=== PATIENT | female | born 1955 | race Caucasian/White ===

== ENCOUNTER 2025-04-11 10:16 | Emergency (ER) | payer MEDICARE, SELFPAY ==
--- NOTE | ~2025-04-11 | XR_ITS ---
Examination: XR chest 2V Clinical History: cough/fever/crackles RLL Comparison: None Technique: PA and Lateral Findings: Cardiomediastinal silhouette normal size and configuration. 2 nodular foci right upper lobe. 1 nodular focus left upper lobe. No focal airspace consolidation or pleural effusion. Mild wedge deformity of what is probably T9. IMPRESSION: 1. Recommend CT chest to better evaluate biapical nodular foci. 2. No evidence of lobar pneumonia. Reviewed, dictated and finalized at location R.
--- NOTE | 2025-04-11 10:17 | ED.URI ---
HPI - URI/Sore Throat General Chief Complaint: Upper Respiratory Infection Stated Complaint: Sore throat / Fever Time Seen by Provider: 04/11/25 10:17 Source: patient Mode of arrival: ambulatory Limitations: no limitations History of Present Illness HPI Narrative: Alessia is a 61-year-old female patient presenting to the clinic today with complaints of sore throat, headache, body aches, nasal congestion, felt feverish x 1 day. She reports symptoms worsened this morning. Temp is 100.8F in the clinic today. Denies any chest pain or SOB. 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 Finished steroids back in October. Has taken Tylenol, Flonase, and allergy medicine for her symptoms. Recently traveled from [place] to [place]-was on a plane on Sunday-traveling here to help her sister removed. She is expecting to travel back to [place] tomorrow. Recently also travel to [place]-1 week ago. Related Data Home Medications ?Medication ?Instructions ?Recorded ?Confirmed ?Last Taken ?Type acyclovir 400 mg tablet mg 04/11/25 Unknown History brimonidine 0.15 % eye drops drp 04/11/25 Unknown History estradiol 10 mcg vaginal tablet mcg vaginal 04/11/25 Unknown History linaclotide 145 mcg capsule mcg 04/11/25 Unknown History ([place]) montelukast 10 mg tablet mg 04/11/25 Unknown History pantoprazole 40 mg tablet,delayed mg PO 04/11/25 Unknown History release rosuvastatin 20 mg tablet mg 04/11/25 Unknown History sertraline 50 mg tablet mg 04/11/25 Unknown History Allergies Allergy/AdvReac Type Severity Reaction Status Date / Time ampicillin Allergy Other Verified 04/11/25 10:42 cefadroxil Allergy Other Verified 04/11/25 10:42 clarithromycin (From Biaxin) Allergy Other Verified 04/11/25 10:42 levofloxacin (From Levaquin) Allergy Other Verified 04/11/25 10:42 nystatin Allergy Unknown Verified 04/11/25 10:42 Penicillins Allergy Other Verified 04/11/25 10:42 propafenone Allergy Wheezing Verified 04/11/25 10:42 raloxifene (From Evista) Allergy Other Verified 04/11/25 10:42 triamcinolone Allergy Unknown Verified 04/11/25 10:42 diltiazem (From Cartia XT) AdvReac FATIQUE Verified 04/11/25 10:42 flecainide AdvReac Confusion Verified 04/11/25 10:42 metoprolol AdvReac BRADYCARDIA Verified 04/11/25 10:42 Review of Systems Review of Systems: Pertinent positives per HPI. Patient denies any rash, visual changes, dizziness, shortness of breath, chest pain, palpitations, nausea, vomiting, diarrhea, constipation, abdominal pain, or any urinary issues. PMFSH Comments At the time of my signature, I reviewed and agree with the nursing past medical, surgical, social, and family history. There is no relevant family history pertinent to the patient complaint. Exam Narrative: General: Well-developed, well nourished, in no apparent distress Head: Normocephalic, atraumatic Eyes: Pupils equally round and reactive to light bilaterally, EOM intact, sclera and conjunctive clear, no discharge, lids normal Ears: TMs intact and some fluid noted behind the TM, ear canals clear, no drainage, grossly hearing normal. Nose: Nares patent, clear nasal discharge, mild inflammation, no sinus tenderness. Mouth: Oral pharynx red without lesions or masses, good dentition, MMM. Postnasal drip Neck: Supple, trachea midline, no enlargement of anterior or posterior cervical nodes, no thyroid masses or goiter palpable. Cardio: Regular rate and rhythm, s1 and s2 normal, no murmur appreciated. Resp: Clear to auscultation bilaterally, no rhonchi, rales, wheezing or rubs Course Course Emergency Course: Portions of this record may have been created with voice recognition software. Level of Care: Express Care Visit Vital Signs Vital signs: Vital Signs Temperature 38.2 C H 04/11/25 10:34 Pulse Rate 89 04/11/25 10:34 Respiratory Rate 18 04/11/25 10:34 Blood Pressure 136/72 04/11/25 10:34 Pulse Oximetry 97 04/11/25 10:34 Oxygen Delivery Room Air 04/11/25 10:34 Temperature 38.2 C H 04/11/25 10:34 Pulse Rate 89 04/11/25 10:34 Respiratory Rate 18 04/11/25 10:34 Blood Pressure 136/72 04/11/25 10:34 Pulse Oximetry 97 04/11/25 10:34 Oxygen Delivery Room Air 04/11/25 10:34 Vital signs reviewed MDM - URI/Sore Throat MDM Narrative Medical decision making narrative: At the time of visit patient is resting comfortably on the exam table. Patient appears to be nontoxic. Complaints of sore throat, headache, body aches, nasal congestion, felt feverish x 1 day. She reports symptoms worsened this morning. Temp is 100.8F in the clinic today. Denies any chest pain or SOB. 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 Finished steroids back in October. Has taken Tylenol, Flonase, and allergy medicine for her symptoms. Recently traveled from [place] to [place]-was on a plane on Sunday-traveling here to help her sister removed. She is expecting to travel back to [place] tomorrow. Recently also travel to [place]-1 week ago. On exam patient has clear nasal drainage, red oropharynx with postnasal drip, fluid behind bilateral TMs, faint crackles in the right lower lobe, heart rate regular rate and rhythm. COVID, flu, and strep test were ordered. Chest x-ray was also ordered Labs: COVID, influenza, and strep test were performed. All testing was negative. We will send strep for culture Diagnostics: Chest x-ray was performed was negative for any acute cardio pulmonary process. Does show some nodules in the upper lobes. CT is recommended per radiologist. Patient and her PCP is aware of the nodules and they are not acute. Plan: I suspect patient has URI/ viral syndrome. Recommend taking Coricidin HBP. May retest for COVID tomorrow. Supportive measures were discussed with the patient and they voiced understanding discharge instructions and agrees to treatment plan. Return precautions reviewed Differential Diagnosis Differential diagnosis: Likely upper respiratory infection, otitis media, sinusitis, viral infection, bronchitis, influenza, pharyngitis and other (COVID) Lab Data Labs: Lab Results 04/11/25 04/11/25 Range/Units 10:40 10:49 POC Influenza A Ag Negative (Negative) POC Influenza B Ag Negative (Negative) POC SARS CoV-2 Ag Negative (Negative) POC Grp A Strep Screen Negative (Negative) Discharge Plan Discharge Clinical Impression: Viral infection Upper respiratory infection Qualifiers: URI type: unspecified URI Qualified Code(s): J06.9 - Acute upper respiratory infection, unspecified Patient Disposition: Home Condition: Stable Instructions: Antibiotic Form, Viral Syndrome (ED), Cold Symptoms (ED) Additional Instructions: COVID, influenza, and strep test were all negative in the clinic today. We will send strep for culture if this comes back positive we will contact you in place you on antibiotics at that time. Chest x-rays negative for any sign of pneumonia. Does show some nodular foci in your bilateral upper lungs-recommend follow-up with your primary care doctor to determine if you need a chest CT for further evaluation. Take prescription medications only as prescribed Increase fluids and stay well hydrated May take Tylenol or motrin as directed on bottle for pain/fever May use Flonase 1 spray in each nare daily May take OTC antihistamines such as Zyrtec or Claritin daily as directed on bottle May apply Vicks vapor rub to chest to open sinuses Sinus rinses for congestion Cepacol spray, cough drops, throat lozenges, warm tea with honey/lemon, gargle salt water to soothe throat BRAT diet for diarrhea Clear liquids x 24 hours then advance as tolerated for nausea/vomiting Go to the ED if you develop a worsening in your condition- high fever not controlled by Tylenol or Motrin, dehydration, weakness, lethargy, shortness of breath, or chest pain. Follow up with your PCP in 3-5 days if symptoms persist. Patient Language: Mozambican Prescriptions: No Action acyclovir 400 mg tablet pantoprazole 40 mg tablet,delayed release (DR/EC) PO montelukast 10 mg tablet sertraline 50 mg tablet brimonidine 0.15 % drops rosuvastatin 20 mg tablet estradiol 10 mcg tablet VAGINAL Linzess 145 mcg capsule Follow-up/Referrals: UNKNOWN,DOCTOR [Non-Staff] Time of Disposition: 11:08 Quality NIHSS Nursing Documentation ED NIHSS nursing documentation: reviewed/agree
--- OUTSIDE RECORDS SUMMARY | 2025-04-11 10:29 | XMS_ITS | Encounter Summary ---
Author Organization [facility] Address [address] [place] [address] Care Team Providers Care Polysomnographic Technologist Name Role Phone Jennifer Landry MD Primary Care Provider [phone] Matthieu Hernandez MD Unavailable [phone] Florecita Hopson MD Unavailable [phone] Jennifer Landry MD Primary Care Provider [phone] Encounter Details Date Type Department Care Team (Late st Contact Info) Description 07/07/2011 OnBase Orders Only On File [address] [place] [address] Social History Tobacco Use Types Packs/Day Years Used Date Smoking Tobacco: Never Assessed Comments Unknown Sex and Gender Information Value Date Recorded Sex Assigned at Female 02/13/2022 9:35 AM EDT Legal Sex Female 12:45 PM EST Gender Identity Female 02/13/2022 9:35 AM EDT Sexual Orientation Straight 02/13/2022 9: 35 AM EDT Travel History Travel Start Travel End [facility] 03/23/2025 04/06/2025 documented as of this encounter Plan of Treatment Upcoming Encounters Date Type Department Care Team (Late st Contact Info) Description 04/13/2025 8:00 AM EDT Office Visit [facility] [address] [place] [address] Lucita Méndez, OD [address] [place] [address] 04/14/2025 8:20 AM EDT [facility] [address] [facility] [address] [place] [id number] Kerry Zaragoza MD [address] [facility] [address] [place] [address] Follow up 04/22/2025 10:00 AM EDT Initial consult [facility] [address] [facility] [address] [place] [address] Cristal Cabrera MD [address] [place] [address] 289.89 (ICD-9-CM) - D75.89 (ICD-10-CM) - Macrocytosis without anemia 05/08/2025 3:30 PM EDT Office Visit [facility] 2nd Floor [address] [facility] [address] [place] [address] Lizbeth Fuller MD [address] [place] [address] Marcie Macario MD [address] [place] [address] ACV visit today - schedule follow-up any provider 3-6 months for hair loss 05/11/2025 1:15 PM EDT Office Visit [facility] [address] [place] [address] Otis Bay MD [address] [facility] [address] [place] [address] 6 month f/u per paper 06/03/2025 10:00 AM EST Nurse [place] [facility] [address] [facility] [address] [place] [id number] [email or web address] 01/19/2025- 2wk post op 07/01/2025 2:15 PM EST Office Visit [facility] [place] [place] [address] Estefani Whipple, OD [address] [place] [address] 07/02/2025 1:40 PM EST Post Op [facility] [address] [place] [address] Brisa Pugh, [place] [address] [facility] [address] [place] [address] [email or web address] 01/19/2025- 6wk post op 07/29/2025 10:20 AM EST Office Visit [facility] [address] [place] [address] [place] [address] Ciaran Mcgee, [address] [place] [address] [place] [address] [place] F/U 08/03/2025 1:15 PM EST Hospital Encounter [facility] [address] [place] [address] Martina Vincent MD [address] [place] [address] 08/03/2025 1:15 PM EST - 08/03/2025 4:45 PM EST Surgery [facility] [address] [place] [address] Martina Vincent MD [address] [place] [address] C3-7 laminoplast LAMINOPLASTY, CERVICAL, W/DECOMPRESSION OF SPINAL CORD, 2 OR MORE VERTEBRAL SEGMENTS; W/RECONSTRUCTION POSTERIOR BONY ELEMENTS 08/14/2025 9:20 AM EST Office Visit [facility] [address] [address] Namrata Pollock MD [address] [place] [address] Jaimee Arroyo, [place] [address] [address] return Scheduled Procedures Name Priority Associated Diagnoses Date/Ti me LAMINOPLASTY, CERVICAL, W/DECOMPRESSION OF SPINAL CORD, 2 OR MORE VERTEBRAL SEGMENTS; W/RECONSTRUCTION POSTERIOR BONY ELEMENTS Spondylosis, cervical, with myelopathy Cervical stenosis of spine 08/03/2025 1:15 PM EST documented as of this encounter Procedures Procedure Name Priority Date/Time Associated Diagnosis Comments EXTERNAL PATHOLOGY RESULT 07/07/2011 12:00 AM EST documented in this encounter Results * EXTERNAL PATHOLOGY RESULT (07/07/2011 12:00 AM EST) Narrative 07/07/2011 12:00 AM EST Ordered by an unspecified provider. us On-File Provider PATHOLOGY ORDERABLES Final Resu lt documented in this encounter Visit Diagnoses Not on filedocumented in this encounter Additional Health Concerns Infection Onset Date Last Indicated Resolved Time Rule Out Respiratory Virus 07/09/2024 07/09/2024 1 09/10/2023 11:37 AM EST Influenza 09/03/2024 09/03/2024 09/13/2024 1:30 AM EST documented as of this encounter Care Teams Polysomnographic Technologist Relationship Specialty Start Date End Date Jennifer Landry MD [address] [place] [address] PCP - General Internal Medicine 10/10/21 07/26/23 Jennifer Landry MD [address] [place] [address] PCP - General Internal Medicine 09/20/23 Matthieu Hernandez MD 30 [place] [address] Consulting Provider Endocrinology 09/19/22 Florecita Hopson MD [address] [address] Covering Provider Urogynecology 09/19/22 documented as of this encounter
--- OUTSIDE RECORDS SUMMARY | 2025-04-11 10:29 | XMS_ITS | Encounter Summary ---
Author Organization [facility] Address [address] [place] [address] Care Team Providers Care Flavor Tank Tender Name Role Phone Jennifer Landry MD Primary Care Provider [phone] Matthieu Hernandez MD Unavailable [phone] Florecita Hopson MD Unavailable [phone] Jennifer Landry MD Primary Care Provider [phone] Encounter Details Date Type Department Care Team (Late st Contact Info) Description 07/07/2011 OnBase Documentation On File [address] [place] [address] Social History Tobacco Use Types Packs/Day Years Used Date Smoking Tobacco: Never Assessed Comments Unknown Sex and Gender Information Value Date Recorded Sex Assigned at Female 02/13/2022 9:35 AM EDT Legal Sex Female 12:45 PM EST Gender Identity Female 02/13/2022 9:35 AM EDT Sexual Orientation Straight 02/13/2022 9: 35 AM EDT Travel History Travel Start Travel End [facility] 03/23/2025 04/06/2025 documented as of this encounter Plan of Treatment Upcoming Encounters Date Type Department Care Team (Late st Contact Info) Description 04/13/2025 8:00 AM EDT Office Visit [facility] [address] [place] [address] Lucita Méndez, OD [address] [place] [address] 04/14/2025 8:20 AM EDT [facility] [address] [facility] [address] [place] [address] Kerry Zaragoza MD [address] [facility] [address] [place] [address] Follow up 04/22/2025 10:00 AM EDT Initial consult [facility] [address] [facility] [address] [place] [address] Cristal Cabrera MD [address] [place] [address] 289.89 (ICD-9-CM) - D75.89 (ICD-10-CM) - Macrocytosis without anemia 05/08/2025 3:30 PM EDT Office Visit [facility] 2nd Floor [address] [facility] [address] [place] [address] Lizbeth Fuller MD [address] [place] [address] Marcie Macario MD 40 [place] [address] ACV visit today - schedule follow-up any provider 3-6 months for hair loss 05/11/2025 1:15 PM EDT Office Visit [facility] [address] [place] [address] Otis Bay MD [address] [facility] [address] [place] [address] 6 month f/u per paper 06/03/2025 10:00 AM EST Nurse [place] [facility] 30 [facility] [address] [place] [address] [email or web address] 01/19/2025- 2wk post op 07/01/2025 2:15 PM EST Office Visit [facility] [address] [place] [address] Estefani Whipple, OD [address] [place] [address] 07/02/2025 1:40 PM EST Post Op [facility] [address] [place] [address] Brisa Pugh, RECYCLING CENTER OPERATOR [address] [facility] [address] [place] [address] [email or web address] 01/19/2025- 6wk post op 07/29/2025 10:20 AM EST Office Visit [facility] [address] [place] [address] [place] [phone] Ciaran Mcgee, [address] [place] [address] [place] [address] [place] F/U 08/03/2025 1:15 PM EST Hospital Encounter [facility] [address] [place] [address] Martina Vincent MD 40 [place] [address] 08/03/2025 1:15 PM EST - 08/03/2025 4:45 PM EST Surgery [facility] [address] [place] [address] Martina Vincent MD 40 [place] [address] C3-7 laminoplast LAMINOPLASTY, CERVICAL, W/DECOMPRESSION OF SPINAL CORD, 2 OR MORE VERTEBRAL SEGMENTS; W/RECONSTRUCTION POSTERIOR BONY ELEMENTS 08/14/2025 9:20 AM EST Office Visit [facility] [address] [phone] Namrata Pollock MD [address] [place] [address] Jaimee Arroyo, [place] [address] [place] [address] return Scheduled Procedures Name Priority Associated Diagnoses Date/Ti me LAMINOPLASTY, CERVICAL, W/DECOMPRESSION OF SPINAL CORD, 2 OR MORE VERTEBRAL SEGMENTS; W/RECONSTRUCTION POSTERIOR BONY ELEMENTS Spondylosis, cervical, with myelopathy Cervical stenosis of spine 08/03/2025 1:15 PM EST documented as of this encounter Visit Diagnoses Not on filedocumented in this encounter Additional Health Concerns Infection Onset Date Last Indicated Resolved Time Rule Out Respiratory Virus 07/09/2024 07/09/2024 1 09/10/2023 11:37 AM EST Influenza 09/03/2024 09/03/2024 09/13/2024 1:30 AM EST documented as of this encounter Care Teams Flavor Tank Tender Relationship Specialty Start Date End Date Jennifer Landry MD [address] [place] [address] PCP - General Internal Medicine 10/10/21 07/26/23 Jennifer Landry MD [address] [place] [address] PCP - General Internal Medicine 09/20/23 Matthieu Hernandez MD [address] [place] [address] Consulting Provider Endocrinology 09/19/22 Florecita Hopson MD [address] [address] Covering Provider Urogynecology 09/19/22 documented as of this encounter
--- OUTSIDE RECORDS SUMMARY | 2025-04-11 10:29 | XMS_ITS | Encounter Summary ---
Author Organization [facility] Address [address] [place] [address] Care Team Providers Care Child And Family Services Worker Name Role Phone Jennifer Landry MD Primary Care Provider + [phone] Matthieu Hernandez MD Unavailable [phone] Florecita Hopson MD Unavailable [phone] Jennifer Landry MD Primary Care Provider [phone] Encounter Details Date Type Department Care Team (Late st Contact Info) Description 03/08/2011 OnBase Orders Only On File [address] [place] [address] Social History Tobacco Use Types Packs/Day Years Used Date Smoking Tobacco: Never Assessed Comments Unknown Sex and Gender Information Value Date Recorded Sex Assigned at Female 02/13/2022 9:35 AM EDT Legal Sex Female 12:45 PM EST Gender Identity Female 02/13/2022 9:35 AM EDT Sexual Orientation Straight 02/13/2022 9: 35 AM EDT Travel History Travel Start Travel End [facility] 03/23/2025 04/06/2025 documented as of this encounter Plan of Treatment Upcoming Encounters Date Type Department Care Team (Late st Contact Info) Description 04/13/2025 8:00 AM EDT Office Visit [facility] [address] [place] [address] Lucita Méndez, OD [address] [place] [address] 04/14/2025 8:20 AM EDT [facility] [address] [facility] [address] [place] [address] Kerry Zaragoza MD [address] [facility] [address] [place] [address] Follow up 04/22/2025 10:00 AM EDT Initial consult [facility] Hematology 40 [facility] [address] [place] [address] Cristal Cabrera MD 40 [place] [address] 289.89 (ICD-9-CM) - D75.89 (ICD-10-CM) - Macrocytosis without anemia 05/08/2025 3:30 PM EDT Office Visit [facility] 2nd Floor 5[address] [facility] 210 [place] [address] Lizbeth Fuller MD [address] [facility] [address] [place] [address] Marcie Macario MD 40 [place] [address] ACV visit today - schedule follow-up any provider 3-6 months for hair loss 05/11/2025 1:15 PM EDT Office Visit [facility] [address] [place] [address] Otis Bay MD [address] [facility] [address] [place] [address] 6 month f/u per paper 06/03/2025 10:00 AM EST Nurse Only [facility] 30 [facility] [address]B 1C [place] [address] [email or web address] 01/19/2025- 2wk post op 07/01/2025 2:15 PM EST Office Visit [facility] [place] [address] [place] [address] Estefani Whipple, OD [address] [place] [address] 07/02/2025 1:40 PM EST Post Op [facility] Arrkeisha [address] 300 [place] [address] Brisa Pugh, [place] [address] [facility] [address] [place] [address] [email or web address] 01/19/2025- 6wk post op 07/29/2025 10:20 AM EST Office Visit [facility] [address] [place] [address] [place] [address] Ciaran Mcgee, [address] [place] [address] [place] [address] [place] F/U 08/03/2025 1:15 PM EST Hospital Encounter [facility] [place] [facility] 10 [place] [address] Martina Vincent MD 40 [place] [address] 08/03/2025 1:15 PM EST - 08/03/2025 4:45 PM EST Surgery [facility] [place] [facility] 10 [place] [address] Martina Vincent MD 40 [place] [address] C3-7 laminoplast LAMINOPLASTY, CERVICAL, W/DECOMPRESSION OF SPINAL CORD, 2 OR MORE VERTEBRAL SEGMENTS; W/RECONSTRUCTION POSTERIOR BONY ELEMENTS 08/14/2025 9:20 AM EST Office Visit [facility] [address] [phone] Namrata Pollock MD [address] [place] [address] Jaimee Arroyo NP [address] [address] return Scheduled Procedures Name Priority Associated Diagnoses Date/Ti me LAMINOPLASTY, CERVICAL, W/DECOMPRESSION OF SPINAL CORD, 2 OR MORE VERTEBRAL SEGMENTS; W/RECONSTRUCTION POSTERIOR BONY ELEMENTS Spondylosis, cervical, with myelopathy Cervical stenosis of spine 08/03/2025 1:15 PM EST documented as of this encounter Procedures Procedure Name Priority Date/Time Associated Diagnosis Comments LAB RESULT EXTERNAL 03/08/2011 1 2:00 AM EDT documented in this encounter Results * LAB RESULT EXTERNAL (03/08/2011 12:00 AM EDT) Narrative 03/08/2011 12:00 AM EDT Ordered by an unspecified provider. us On-File Provider PROCEDURE/MINOR SURGICAL ORDERA BLES Final Result documented in this encounter Visit Diagnoses Not on filedocumented in this encounter Additional Health Concerns Infection Onset Date Last Indicated Resolved Time Rule Out Respiratory Virus 07/09/2024 07/09/2024 1 09/10/2023 11:37 AM EST Influenza 09/03/2024 09/03/2024 09/13/2024 1:30 AM EST documented as of this encounter Care Teams Child And Family Services Worker Relationship Specialty Start Date End Date Jennifer Landry MD [address] [place] [address] PCP - General Internal Medicine 10/10/21 07/26/23 Jennifer Landry MD [address] [place] [address] PCP - General Internal Medicine 09/20/23 Matthieu Hernandez MD 30 [place] [address] Consulting Provider Endocrinology 09/19/22 Florecita Hopson MD [address] [address] Covering Provider Urogynecology 09/19/22 documented as of this encounter
--- OUTSIDE RECORDS SUMMARY | 2025-04-11 10:29 | XMS_ITS | Encounter Summary ---
Author Organization [facility] Address [address] [place] [address] Care Team Providers Care Roll Over Press Operator Name Role Phone Jennifer Landry MD Primary Care Provider + [phone] Matthieu Hernandez MD Unavailable [phone] Florecita Hopson MD Unavailable [phone] Jennifer Landry MD Primary Care Provider [phone] Encounter Details Date Type Department Care Team (Late st Contact Info) Description 05/06/2008 OnBase Orders Only On File [address] [place] [address] Social History Tobacco Use Types Packs/Day Years Used Date Smoking Tobacco: Never Assessed Comments Unknown Sex and Gender Information Value Date Recorded Sex Assigned at Female 02/13/2022 9:35 AM EDT Legal Sex Female 12:45 PM EST Gender Identity Female 02/13/2022 9:35 AM EDT Sexual Orientation Straight 02/13/2022 9: 35 AM EDT Travel History Travel Start Travel End [facility] 03/23/2025 04/06/2025 documented as of this encounter Plan of Treatment Upcoming Encounters Date Type Department Care Team (Late st Contact Info) Description 04/13/2025 8:00 AM EDT Office Visit [facility] [address] [place] [address] Lucita Méndez, OD [address] [place] [address] 04/14/2025 8:20 AM EDT [facility] [address] [facility] [address] [place] [address] Kerry Zaragoza MD [address] [facility] [address] [place] [address] Follow up 04/22/2025 10:00 AM EDT Initial consult [facility] Hematology 40 [facility] 1E [place] [address] Cristal Cabrera MD 40 [place] [address] 289.89 (ICD-9-CM) - D75.89 (ICD-10-CM) - Macrocytosis without anemia 05/08/2025 3:30 PM EDT [facility] 2nd Floor 5324 [facility] 210 [place] [address] Lizbeth Fuller MD [address] [place] [address] Marcie Macario MD 40 [place] [address] ACV visit today - schedule follow-up any provider 3-6 months for hair loss 05/11/2025 1:15 PM EDT Office Visit [facility] [address] [place] [address] Otis Bay MD [address] [facility] [address] [place] [address] 6 month f/u per paper 06/03/2025 10:00 AM EST Nurse Only [facility] 30 [facility] 1B 1C [place] [address] [email or web address] 01/19/2025- 2wk post op 07/01/2025 2:15 PM EST Office [facility] [address] [place] [address] Estefani Whipple, OD [address] [place] [address] 07/02/2025 1:40 PM EST Post Op [facility] Arrkeisha [address] [place] [address] Brisa Pugh, [place] [address] [facility] [address] [place] [address] [email or web address] 01/19/2025- 6wk post op 07/29/2025 10:20 AM EST Office Visit [facility] [address] [place] [address] [place] [address] Ciaran Mcgee, [address] [place] [address] [place] [address] [place] F/U 08/03/2025 1:15 PM EST Hospital Encounter [facility] 10 [place] [address] Martina Vincent MD 40 [place] [address] 08/03/2025 1:15 PM EST - 08/03/2025 4:45 PM EST Surgery [facility] 10 [place] [address] Martina Vincent MD 40 [place] [address] C3-7 laminoplast LAMINOPLASTY, CERVICAL, W/DECOMPRESSION OF SPINAL CORD, 2 OR MORE VERTEBRAL SEGMENTS; W/RECONSTRUCTION POSTERIOR BONY ELEMENTS 08/14/2025 9:20 AM EST Office [facility] [address] [phone] Namrata Pollcok MD 42[address] [place] [address] Jaimee Arroyo NP [address] [address] return Scheduled Procedures Name Priority Associated Diagnoses Date/Ti me LAMINOPLASTY, CERVICAL, W/DECOMPRESSION OF SPINAL CORD, 2 OR MORE VERTEBRAL SEGMENTS; W/RECONSTRUCTION POSTERIOR BONY ELEMENTS Spondylosis, cervical, with myelopathy Cervical stenosis of spine 08/03/2025 1:15 PM EST documented as of this encounter Procedures Procedure Name Priority Date/Time Associated Diagnosis Comments LAB RESULT EXTERNAL 05/06/2008 1 2:00 AM EDT documented in this encounter Results * LAB RESULT EXTERNAL (05/06/2008 12:00 AM EDT) Narrative 05/06/2008 12:00 AM EDT Ordered by an unspecified [...] documented as of this encounter Care Teams Roll Over Press Operator Relationship Specialty Start Date End Date Jennifer Landry MD [address] [place] [address] PCP - General Internal Medicine 10/10/21 07/26/23 Jennifer Landry MD [address] [place] [address] PCP - General Internal Medicine 09/20/23 Matthieu Hernandez MD 30 [place] [address] Consulting Provider Endocrinology 09/19/22 Florecita Hopson MD [address] [address] Covering Provider Urogynecology 09/19/22 documented as of this encounter
--- OUTSIDE RECORDS SUMMARY | 2025-04-11 10:29 | XMS_ITS | Encounter Summary ---
Author Organization [facility] Address [address] [place] [address] Care Team Providers Care Physician In Private Practice Name Role Phone Jennifer Landry MD Primary Care Provider + [phone] Matthieu Hernandez MD Unavailable [phone] Florecita Hopson MD Unavailable [phone] Jennifer Landry MD Primary Care Provider [phone] Encounter Details Date Type Department Care Team (Late st Contact Info) Description 10/08/2008 OnBase Orders Only On File [address] [place] [address] Social History Tobacco Use Types Packs/Day Years Used Date Smoking Tobacco: Never Assessed Comments Unknown Sex and Gender Information Value Date Recorded Sex Assigned at Female 02/13/2022 9:35 AM EDT Legal Sex Female 12:45 PM EST Gender Identity Female 02/13/2022 9:35 AM EDT Sexual Orientation Straight 02/13/2022 9: 35 AM EDT Travel History Travel Start Travel End [facility] 03/23/2025 04/06/2025 documented as of this encounter Plan of Treatment Upcoming Encounters Date Type Department Care Team (Late st Contact Info) Description 04/13/2025 8:00 AM EDT Office Visit [facility] [address] [place] [address] Lucita Méndez, OD [address] [place] [address] 04/14/2025 8:20 AM EDT [facility] [address] [facility] [address] [place] [address] Kerry Zaragoza MD [address] [facility] [address] [place] [address] Follow up 04/22/2025 10:00 AM EDT Initial consult [facility] Hematology 40 [facility] 1E [place] [address] Cristal Cabrera MD 40 [place] [address] 289.89 (ICD-9-CM) - D75.89 (ICD-10-CM) - Macrocytosis without anemia 05/08/2025 3:30 PM EDT Office Visit [facility] 2nd Floor 5[address] [facility] 210 [place] [address] Lizbeth Fuller MD [address] [facility] [address] [place] [address] Marcie Macario MD 40 [place] [address] ACV visit today - schedule follow-up any provider 3-6 months for hair loss 05/11/2025 1:15 PM EDT Office Visit [facility] [address] [place] [address] Otis Bay MD [address] [facility] [address] [place] [address] 6 month f/u per paper 06/03/2025 10:00 AM EST Nurse Only [facility] 30 [facility] [address]B [address] [place] [address] [email or web address] 01/19/2025- 2wk post op 07/01/2025 2:15 PM EST Office Visit [facility] [place] [address] [place] [address] Estefani Whipple, OD [address] [place] [address] 07/02/2025 1:40 PM EST Post Op [facility] Arrkeisha [address] 300 [place] [address] Brisa Pugh, [place] 5601 [facility] [address] [place] [address] [email or web address] 01/19/2025- 6wk post op 07/29/2025 10:20 AM EST Office Visit [facility] [address] [place] [address] [place] [address] Ciaran Mcgee, [address] [place] [address] [place] [address] MO F/U 08/03/2025 1:15 PM EST Hospital Encounter [facility] [place] [facility] 10 [place] [address] Martina Vincent MD 40 [place] [address] 08/03/2025 1:15 PM EST - 08/03/2025 4:45 PM EST Surgery [facility] [place] [facility] 10 [place] [address] Martina Vincent MD 40 [place] [address] C3-7 laminoplast LAMINOPLASTY, CERVICAL, W/DECOMPRESSION OF SPINAL CORD, 2 OR MORE VERTEBRAL SEGMENTS; W/RECONSTRUCTION POSTERIOR BONY ELEMENTS 08/14/2025 9:20 AM EST Office Visit [facility] [address] [phone] Namrata Pollock MD 4220 [place] [address] Jaimee Arroyo NP [address] [address] return Scheduled Procedures Name Priority Associated Diagnoses Date/Ti me LAMINOPLASTY, CERVICAL, W/DECOMPRESSION OF SPINAL CORD, 2 OR MORE VERTEBRAL SEGMENTS; W/RECONSTRUCTION POSTERIOR BONY ELEMENTS Spondylosis, cervical, with myelopathy Cervical stenosis of spine 08/03/2025 1:15 PM EST documented as of this encounter Procedures Procedure Name Priority Date/Time Associated Diagnosis Comments LAB RESULT EXTERNAL 10/08/2008 1 2:00 AM EDT documented in this encounter Results * LAB RESULT EXTERNAL (10/08/2008 12:00 AM EDT) Narrative 10/08/2008 12:00 AM EDT Ordered by an unspecified [...] documented as of this encounter Care Teams Physician In Private Practice Relationship Specialty Start Date End Date Jennifer Landry MD [address] [place] [address] PCP - General Internal Medicine 10/10/21 07/26/23 Jennifer Landry MD [address] [place] [address] PCP - General Internal Medicine 09/20/23 Matthieu Hernandez MD 30 [place] [address] Consulting Provider Endocrinology 09/19/22 Florecita Hopson MD [address] [address] Covering Provider Urogynecology 09/19/22 documented as of this encounter
--- OUTSIDE RECORDS SUMMARY | 2025-04-11 10:29 | XMS_ITS | Encounter Summary ---
Author Organization [facility] Address [address] [place] [address] Care Team Providers Care Pediatrician Name Role Phone Jennifer Landry MD Primary Care Provider + [phone] Matthieu Hernandez MD Unavailable [phone] Florecita Hopson MD Unavailable [phone] Jennifer Landry MD Primary Care Provider [phone] Encounter Details Date Type Department Care Team (Late st Contact Info) Description 03/08/2009 OnBase Orders Only On File [address] [place] [address] Social History Tobacco Use Types Packs/Day Years Used Date Smoking Tobacco: Never Assessed Comments Unknown Sex and Gender Information Value Date Recorded Sex Assigned at Female 02/13/2022 9:35 AM EDT Legal Sex Female 12:45 PM EST Gender Identity Female 02/13/2022 9:35 AM EDT Sexual Orientation Straight 02/13/2022 9: 35 AM EDT Travel History Travel Start Travel End [facility] 03/23/2025 04/06/2025 documented as of this encounter Plan of Treatment Upcoming Encounters Date Type Department Care Team (Late st Contact Info) Description 04/13/2025 8:00 AM EDT Office Visit [facility] [address] [place] [address] Lucita Méndez, OD [address] [place] [address] 04/14/2025 8:20 AM EDT [facility] [address] [facility] [address] [place] [address] Kerry Zaragoza MD [address] [facility] [address] [place] [address] Follow up 04/22/2025 10:00 AM EDT Initial consult [facility] Hematology 40 [facility] 1E [place] [address] Cristal Cabrera MD 40 [place] [address] 289.89 (ICD-9-CM) - D75.89 (ICD-10-CM) - Macrocytosis without anemia 05/08/2025 3:30 PM EDT Office Visit [facility] 2nd Floor 5324 [facility] 210 [place] [address] Lizbeth Fuller MD [address] [place] [address] Marcie Macario MD 40 [place] [address] ACV visit today - schedule follow-up any provider 3-6 months for hair loss 05/11/2025 1:15 PM EDT Office Visit [facility] [address] [place] [address] Otis Bay MD 4709 [facility] [address] [place] [address] 6 month f/u per paper 06/03/2025 10:00 AM EST Nurse Only [facility] 30 [facility] [address]B [address] [place] [address] [email or web address] 01/19/2025- 2wk post op 07/01/2025 2:15 PM EST Office Visit [facility] [address] [place] [address] Estefani Whipple, OD [address] [place] [address] 07/02/2025 1:40 PM EST Post Op [facility] Arrkeisha [address] [place] [address] Brisa Pugh, [place] [address] [facility] [address] [place] [address] [email or web address] 01/19/2025- 6wk post op 07/29/2025 10:20 AM EST Office Visit [facility] [address] [place] [address] [place] [address] Ciaran Mcgee, [address] [place] [address] [place] [address] [place] F/U 08/03/2025 1:15 PM EST Hospital Encounter [facility] 10 [place] [address] Martina Vincent MD 40 [place] [address] 08/03/2025 1:15 PM EST - 08/03/2025 4:45 PM EST Surgery [facility] 10 [place] [address] Martina Vincent MD 40 [place] [address] C3-7 laminoplast LAMINOPLASTY, CERVICAL, W/DECOMPRESSION OF SPINAL CORD, 2 OR MORE VERTEBRAL SEGMENTS; W/RECONSTRUCTION POSTERIOR BONY ELEMENTS 08/14/2025 9:20 AM EST Office Visit [facility] [address] [phone] Namrata Pollock MD [address]20 [place] [address] Jaimee Arroyo NP [address] [address] return Scheduled Procedures Name Priority Associated Diagnoses Date/Ti me LAMINOPLASTY, CERVICAL, W/DECOMPRESSION OF SPINAL CORD, 2 OR MORE VERTEBRAL SEGMENTS; W/RECONSTRUCTION POSTERIOR BONY ELEMENTS Spondylosis, cervical, with myelopathy Cervical stenosis of spine 08/03/2025 1:15 PM EST documented as of this encounter Procedures Procedure Name Priority Date/Time Associated Diagnosis Comments EXTERNAL PATHOLOGY RESULT 03/08/2009 12:00 AM EDT documented in this encounter Results * EXTERNAL PATHOLOGY RESULT (03/08/2009 12:00 AM EDT) Narrative 03/08/2009 12:00 AM EDT Ordered by an unspecified provider. us On-File Provider PATHOLOGY ORDERABLES Final Resu lt documented in this encounter Visit Diagnoses Not on filedocumented in this encounter Additional Health Concerns Infection Onset Date Last Indicated Resolved Time Rule Out Respiratory Virus 07/09/2024 07/09/2024 1 09/10/2023 11:37 AM EST Influenza 09/03/2024 09/03/2024 09/13/2024 1:30 AM EST documented as of this encounter Care Teams Pediatrician Relationship Specialty Start Date End Date Jennifer Landry MD [address] [place] [address] PCP - General Internal Medicine 10/10/21 07/26/23 Jennifer Landry MD [address] [place] [address] PCP - General Internal Medicine 09/20/23 Matthieu Hernandez MD 30 [place] [address] Consulting Provider Endocrinology 09/19/22 Florecita Hopson MD [address] [address] Covering Provider Urogynecology 09/19/22 documented as of this encounter
--- OUTSIDE RECORDS SUMMARY | 2025-04-11 10:29 | XMS_ITS | Encounter Summary ---
Author Organization [facility] Address [address] [place] [address] Care Team Providers Care Drum Barker Operator Name Role Phone Jennifer Landry MD Primary Care Provider + [phone] Matthieu Hernandez MD Unavailable [phone] Florecita Hopson MD Unavailable [phone] Jennifer Landry MD Primary Care Provider [phone] Encounter Details Date Type Department Care Team (Late st Contact Info) Description 11/25/2010 OnBase Orders Only On File [address] [place] [address] Social History Tobacco Use Types Packs/Day Years Used Date Smoking Tobacco: Never Assessed Comments Unknown Sex and Gender Information Value Date Recorded Sex Assigned at Female 02/13/2022 9:35 AM EDT Legal Sex Female 12:45 PM EST Gender Identity Female 02/13/2022 9:35 AM EDT Sexual Orientation Straight 02/13/2022 9: 35 AM EDT Travel History Travel Start Travel End [facility] 03/23/2025 04/06/2025 documented as of this encounter Plan of Treatment Upcoming Encounters Date Type Department Care Team (Late st Contact Info) Description 04/13/2025 8:00 AM EDT Office Visit [facility] [address] [place] [address] Lucita Méndez, OD [address] [place] [address] 04/14/2025 8:20 AM EDT [facility] [address] [facility] [address] [place] [address] Kerry Zaragoza MD [address] [facility] [address] [place] [address] Follow up 04/22/2025 10:00 AM EDT Initial consult [facility] H[facility]ology 40 [facility] [address]E [place] [address] Cristal Cabrera MD 40 [place] [address] 289.89 (ICD-9-CM) - D75.89 (ICD-10-CM) - Macrocytosis without anemia 05/08/2025 3:30 PM EDT Office Visit [facility] 2nd Floor 5324 [facility] 210 [place] [address] Lizbeth Fuller MD [address] [place] [address] Marcie Macario MD 40 [place] [address] ACV visit today - schedule follow-up any provider 3-6 months for hair loss 05/11/2025 1:15 PM EDT Office Visit [facility] [address] [place] [address] Otis Bay MD [address] [facility] [address] [place] [address] 6 month f/u per paper 06/03/2025 10:00 AM EST Nurse Only [facility] 30 [facility] [address]C [place] [address] [email or web address] 01/19/2025- 2wk post op 07/01/2025 2:15 PM EST Office Visit [facility] [place] [address] [place] [address] Estefani Whipple, OD [address] [place] [address] 07/02/2025 1:40 PM EST Post Op [facility] Arrkeisha [facility] [address] [place] [address] Brisa Pugh, [place] 56[address] [facility] [address] [place] [address] [email or web address] 01/19/2025- 6wk post op 07/29/2025 10:20 AM EST Office Visit [facility] [address] [place] [address] [place] [address] Ciaran Mcgee, [address] [place] [address] [place] [address] [place] F/U 08/03/2025 1:15 PM EST Hospital Encounter [facility] [place] [facility] 10 [place] [address] Martina Vincent MD 40 [place] [address] 08/03/2025 1:15 PM EST - 08/03/2025 4:45 PM EST Surgery [facility] 10 [place] [address] Martina Vincent MD 40 [place] [address] C3-7 laminoplast LAMINOPLASTY, CERVICAL, W/DECOMPRESSION OF SPINAL CORD, 2 OR MORE VERTEBRAL SEGMENTS; W/RECONSTRUCTION POSTERIOR BONY ELEMENTS 08/14/2025 9:20 AM EST Office Visit [facility] [address] [phone] Namrata Pollock MD [address] [place] [address] Jaimee Arroyo NP [address] [address] return Scheduled Procedures Name Priority Associated Diagnoses Date/Ti me LAMINOPLASTY, CERVICAL, W/DECOMPRESSION OF SPINAL CORD, 2 OR MORE VERTEBRAL SEGMENTS; W/RECONSTRUCTION POSTERIOR BONY ELEMENTS Spondylosis, cervical, with myelopathy Cervical stenosis of spine 08/03/2025 1:15 PM EST documented as of this encounter Procedures Procedure Name Priority Date/Time Associated Diagnosis Comments LAB RESULT EXTERNAL 11/25/2010 1 2:00 AM EDT documented in this encounter Results * LAB RESULT EXTERNAL (11/25/2010 12:00 AM EDT) Narrative 11/25/2010 12:00 AM EDT Ordered by an unspecified [...] documented as of this encounter Care Teams Drum Barker Operator Relationship Specialty Start Date End Date Jennifre Landry MD [address] [place] [address] PCP - General Internal Medicine 10/10/21 07/26/23 Jennifer Landry MD [address] [place] [address] PCP - General Internal Medicine 09/20/23 Matthieu Hernandez MD 30 [place] [address] Consulting Provider Endocrinology 09/19/22 Florecita Hopson MD [address] [address] Covering Provider Urogynecology 09/19/22 documented as of this encounter
--- OUTSIDE RECORDS SUMMARY | 2025-04-11 10:29 | XMS_ITS | Encounter Summary ---
Author Organization [facility] Address [address] [place] [address] Care Team Providers Care Instrument Adjuster Name Role Phone Jennifer Landry MD Primary Care Provider + [phone] Matthieu Hernandez MD Unavailable [phone] Florecita Hopson MD Unavailable [phone] Jennifer Landry MD Primary Care Provider [phone] Encounter Details Date Type Department Care Team (Late st Contact Info) Description 10/14/2008 OnBase Orders Only On File [address] [place] [address] Social History Tobacco Use Types Packs/Day Years Used Date Smoking Tobacco: Never Assessed Comments Unknown Sex and Gender Information Value Date Recorded Sex Assigned at Female 02/13/2022 9:35 AM EDT Legal Sex Female 12:45 PM EST Gender Identity Female 02/13/2022 9:35 AM EDT Sexual Orientation Straight 02/13/2022 9: 35 AM EDT Travel History Travel Start Travel End [facility] 03/23/2025 04/06/2025 documented as of this encounter Plan of Treatment Upcoming Encounters Date Type Department Care Team (Late st Contact Info) Description 04/13/2025 8:00 AM EDT Office Visit [facility] [address] [place] [address] Lucita Méndez, OD [address] [place] [address] 04/14/2025 8:20 AM EDT [facility] [address] [facility] [address] [place] [address] Kerry Zaragoza MD [address] [facility] [address] [place] [address] Follow up 04/22/2025 10:00 AM EDT Initial consult [facility] Hematology 40 [facility] [address] [place] [address] Cristal Cabrera MD 40 [place] [address] 289.89 (ICD-9-CM) - D75.89 (ICD-10-CM) - Macrocytosis without anemia 05/08/2025 3:30 PM EDT Office Visit [facility] 2nd Floor 5324 [facility] 210 [place] [address] Lizbeth Fuller MD [address] [facility] [address] [place] [address] Marcie Macario MD 40 [place] [address] ACV visit today - schedule follow-up any provider 3-6 months for hair loss 05/11/2025 1:15 PM EDT Office Visit [facility] [address] [place] [address] Otis Bay MD 4709 [facility] [address] [place] [address] 6 month f/u per paper 06/03/2025 10:00 AM EST Nurse Only [facility] 30 [facility] [address] 1C [place] [address] [email or web address] 01/19/2025- 2wk post op 07/01/2025 2:15 PM EST Office Visit [facility] [place] [address] [place] [address] Estefani Whipple, OD [address] [place] [address] 07/02/2025 1:40 PM EST Post Op [facility] Arrke[facility] 300 [place] [address] Brisa Pugh, [place] [address] [facility] [address] [place] [address] [email or web address] 01/19/2025- 6wk post op 07/29/2025 10:20 AM EST Office Visit [facility] [address] [place] [address] [place] [address] Ciaran Mcgee, [address] [place] [address] [place] [address] [place] F/U 08/03/2025 1:15 PM EST Hospital Encounter [facility] 10 [place] [address] Martina Vincent MD 40 [place] [address] 08/03/2025 1:15 PM EST - 08/03/2025 4:45 PM EST Surgery [facility] 10 [place] [address] Martina Vincent MD 40 [place] [address] C3-7 laminoplast LAMINOPLASTY, CERVICAL, W/DECOMPRESSION OF SPINAL CORD, 2 OR MORE VERTEBRAL SEGMENTS; W/RECONSTRUCTION POSTERIOR BONY ELEMENTS 08/14/2025 9:20 AM EST Office Visit [facility] [address] [phone] Namrata Pollock MD 4220 [place] [address] Jaimee Arroyo NP [address] [address] return Scheduled Procedures Name Priority Associated Diagnoses Date/Ti me LAMINOPLASTY, CERVICAL, W/DECOMPRESSION OF SPINAL CORD, 2 OR MORE VERTEBRAL SEGMENTS; W/RECONSTRUCTION POSTERIOR BONY ELEMENTS Spondylosis, cervical, with myelopathy Cervical stenosis of spine 08/03/2025 1:15 PM EST documented as of this encounter Procedures Procedure Name Priority Date/Time Associated Diagnosis Comments LAB RESULT EXTERNAL 10/14/2008 1 2:00 AM EDT documented in this encounter Results * LAB RESULT EXTERNAL (10/14/2008 12:00 AM EDT) Narrative 10/14/2008 12:00 AM EDT Ordered by an unspecified [...] documented as of this encounter Care Teams Instrument Adjuster Relationship Specialty Start Date End Date Jennifer Landry MD [address] [place] [address] PCP - General Internal Medicine 10/10/21 07/26/23 Jennifer Landry MD [address] [place] [address] PCP - General Internal Medicine 09/20/23 Matthieu Hernandez MD 30 [place] [address] Consulting Provider Endocrinology 09/19/22 Florecita Hopson MD [address] [address] Covering Provider Urogynecology 09/19/22 documented as of this encounter
--- OUTSIDE RECORDS SUMMARY | 2025-04-11 10:29 | XMS_ITS | Encounter Summary ---
Author Organization [facility] Address [address] [place] [address] Care Team Providers Care Fuller Brush Man Name Role Phone Jennifer Landry MD Primary Care Provider [phone] Matthieu Hernandez MD Unavailable [phone] Florecita Hopson MD Unavailable [phone] Jennifer Landry MD Primary Care Provider [phone] Encounter Details Date Type Department Care Team (Late st Contact Info) Description 04/06/2009 OnBase Documentation On File [address] [place] [address] Social History Tobacco Use Types Packs/Day Years Used Date Smoking Tobacco: Never Assessed Comments Unknown Sex and Gender Information Value Date Recorded Sex Assigned at Female 02/13/2022 9:35 AM EDT Legal Sex Female 12:45 PM EST Gender Identity Female 02/13/2022 9:35 AM EDT Sexual Orientation Straight 02/13/2022 9: 35 AM EDT Travel History Travel Start Travel End [facility] 03/23/2025 04/06/2025 documented as of this encounter Plan of Treatment Upcoming Encounters Date Type Department Care Team (Late st Contact Info) Description 04/13/2025 8:00 AM EDT Office Visit [facility] [address] [place] [address] Lucita Méndez, OD [address] [place] [address] 04/14/2025 8:20 AM EDT [facility] 1821 [facility] [address] [place] [address] Kerry Zaragoza MD 1821 [facility] [address] [place] [address] Follow up 04/22/2025 10:00 AM EDT Initial consult [facility] Hematology 40 [facility] 1E [place] [address] Cristal Cabrera MD 40 [place] [address] 289.89 (ICD-9-CM) - D75.89 (ICD-10-CM) - Macrocytosis without anemia 05/08/2025 3:30 PM EDT Office [facility] 2nd Floor 5324 [facility] 210 [place] [address] Lizbeth Fuller MD [address] [facility] [facility] [address] [place] [address] Marcie Macario MD 40 [place] [address] ACV visit today - schedule follow-up any provider 3-6 months for hair loss 05/11/2025 1:15 PM EDT Office Visit [facility] [address] [place] [address] Otis Bay MD 4709 [facility] [address] [place] [address] 6 month f/u per paper 06/03/2025 10:00 AM EST Nurse Only [facility] 30 [facility] 1B 1C [place] [address] [email or web address] 01/19/2025- 2wk post op 07/01/2025 2:15 PM EST Office Visit [facility] [place] [address] [place] [address] Estefani Whipple, OD [address] [place] [address] 07/02/2025 1:40 PM EST Post Op [facility] 300 [place] [address] Brisa Pugh, METAL CASTING TRADES WORKER [address] [facility] [address] [place] [address] [email or web address] 01/19/2025- 6wk post op 07/29/2025 10:20 AM EST Office Visit [facility] [address] [place] [address] [place] [address] Ciaran Mcgee, [address] [place] [address] [place] [address] [place] F/U 08/03/2025 1:15 PM EST Hospital Encounter [facility] [place] [facility] 10 [place] [address] Martina Vincent MD 40 [place] [address] 08/03/2025 1:15 PM EST - 08/03/2025 4:45 PM EST Surgery [facility] 10 [place] [address] Martina Vincent MD 40 [place] [address] C3-7 laminoplast LAMINOPLASTY, CERVICAL, W/DECOMPRESSION OF SPINAL CORD, 2 OR MORE VERTEBRAL SEGMENTS; W/RECONSTRUCTION POSTERIOR BONY ELEMENTS 08/14/2025 9:20 AM EST Office Visit [facility] [address] [phone] Namrata Pollock MD 4220 [place] [address] Jaimee Arroyo, [place] 4220 [place] [address] return Scheduled Procedures Name Priority Associated Diagnoses [...] documented as of this encounter Care Teams Fuller Brush Man Relationship Specialty Start Date End Date Jennifer Landry MD [address] [place] [address] PCP - General Internal Medicine 10/10/21 07/26/23 Jennifer Landry MD [address] [place] [address] PCP - General Internal Medicine 09/20/23 Matthieu Hernandez MD 30 [place] [address] Consulting Provider Endocrinology 09/19/22 Florecita Hopson MD [address] [address] Covering Provider Urogynecology 09/19/22 documented as of this encounter
--- OUTSIDE RECORDS SUMMARY | 2025-04-11 10:29 | XMS_ITS | Encounter Summary ---
Author Organization [facility] Address [address] [place] [address] Care Team Providers Care Vocational School Teacher Name Role Phone Jennifer Landry MD Primary Care Provider + [phone] Matthieu Hernandez MD Unavailable [phone] Florecita Hopson MD Unavailable [phone] Jennifer Landry MD Primary Care Provider [phone] Encounter Details Date Type Department Care Team (Late st Contact Info) Description 03/16/2009 OnBase Orders Only On File [address] [place] [address] Social History Tobacco Use Types Packs/Day Years Used Date Smoking Tobacco: Never Assessed Comments Unknown Sex and Gender Information Value Date Recorded Sex Assigned at Female 02/13/2022 9:35 AM EDT Legal Sex Female 12:45 PM EST Gender Identity Female 02/13/2022 9:35 AM EDT Sexual Orientation Straight 02/13/2022 9: 35 AM EDT Travel History Travel Start Travel End [facility] 03/23/2025 04/06/2025 documented as of this encounter Plan of Treatment Upcoming Encounters Date Type Department Care Team (Late st Contact Info) Description 04/13/2025 8:00 AM EDT Office Visit [facility] [address] [place] [address] Lucita Méndez, OD [address] [place] [address] 04/14/2025 8:20 AM EDT [facility] 1821 [facility] [address] [place] [address] Kerry Zaragoza MD 1821 [facility] [address] [place] [address] Follow up 04/22/2025 10:00 AM EDT Initial consult [facility] Hematology 40 [facility] 1E [place] [address] Cristal Cabrera MD 40 [place] [address] 289.89 (ICD-9-CM) - D75.89 (ICD-10-CM) - Macrocytosis without anemia 05/08/2025 3:30 PM EDT Office Visit [facility] 2nd Floor 5324 [facility] 210 [place] [address] Lizbeth Fuller MD [address] [facility] [facility] [address] [place] [address] Marcie Macario MD 40 [place] [address] ACV visit today - schedule follow-up any provider 3-6 months for hair loss 05/11/2025 1:15 PM EDT Office Visit [facility] [address] [place] [address] Otis Bay MD 4709 [facility] [address] [place] [address] 6 month f/u per paper 06/03/2025 10:00 AM EST Nurse Only [facility] 30 [facility] 1B [address] [place] [address] [email or web address] 01/19/2025- 2wk post op 07/01/2025 2:15 PM EST Office Visit [facility] [place] [address] Estefani Whipple, OD [address] [place] [address] 07/02/2025 1:40 PM EST Post Op [facility] Arrkeisha [facility] [place] [address] Brisa Pugh, [place] 5601 [facility] [address] [place] [email or web address] 01/19/2025- 6wk post op 07/29/2025 10:20 AM EST Office Visit [facility] [address] [place] [address] [place] [address] Ciaran Mcgee, [address] [place] [address] [place] [address] MO F/U 08/03/2025 1:15 PM EST Hospital Encounter [facility] 10 [place] [address] Martina Vincent MD 40 [place] [address] 08/03/2025 1:15 PM EST - 08/03/2025 4:45 PM EST Surgery [facility] 10 [place] [address] Martina Vincent MD 40 [place] [address] C3-7 laminoplast LAMINOPLASTY, CERVICAL, W/DECOMPRESSION OF SPINAL CORD, 2 OR MORE VERTEBRAL SEGMENTS; W/RECONSTRUCTION POSTERIOR BONY ELEMENTS 08/14/2025 9:20 AM EST Office Visit [facility] [address] [phone] Namrata Pollock MD [address]20 [place] [address] Jaimee Arroyo NP [address] [address] return Scheduled Procedures Name Priority Associated Diagnoses Date/Ti me LAMINOPLASTY, CERVICAL, W/DECOMPRESSION OF SPINAL CORD, 2 OR MORE VERTEBRAL SEGMENTS; W/RECONSTRUCTION POSTERIOR BONY ELEMENTS Spondylosis, cervical, with myelopathy Cervical stenosis of spine 08/03/2025 1:15 PM EST documented as of this encounter Procedures Procedure Name Priority Date/Time Associated Diagnosis Comments LAB RESULT EXTERNAL 03/16/2009 1 2:00 AM EDT documented in this encounter Results * LAB RESULT EXTERNAL (03/16/2009 12:00 AM EDT) Narrative 03/16/2009 12:00 AM EDT Ordered by an unspecified [...] documented as of this encounter Care Teams Vocational School Teacher Relationship Specialty Start Date End Date Jennifer Landry MD [address] [place] [address] PCP - General Internal Medicine 10/10/21 07/26/23 Jennifer Landry MD [address] [place] [address] PCP - General Internal Medicine 09/20/23 Matthieu Hernandez MD 30 [place] [address] Consulting Provider Endocrinology 09/19/22 Florecita Hopson MD [address] [address] Covering Provider Urogynecology 09/19/22 documented as of this encounter
--- OUTSIDE RECORDS SUMMARY | 2025-04-11 10:29 | XMS_ITS | Encounter Summary ---
Author Organization [facility] Address [address] [place] [address] Care Team Providers Care Combat Control Name Role Phone Jennifer Landry MD Primary Care Provider + [phone] Matthieu Hernandez MD Unavailable [phone] Florecita Hopson MD Unavailable [phone] Jennifer Landry MD Primary Care Provider [phone] Encounter Details Date Type Department Care Team (Late st Contact Info) Description 04/11/2011 OnBase Orders Only On File [address] [place] [address] Social History Tobacco Use Types Packs/Day Years Used Date Smoking Tobacco: Never Assessed Comments Unknown Sex and Gender Information Value Date Recorded Sex Assigned at Female 02/13/2022 9:35 AM EDT Legal Sex Female 12:45 PM EST Gender Identity Female 02/13/2022 9:35 AM EDT Sexual Orientation Straight 02/13/2022 9: 35 AM EDT Travel History Travel Start Travel End [facility] 03/23/2025 04/06/2025 documented as of this encounter Plan of Treatment Upcoming Encounters Date Type Department Care Team (Late st Contact Info) Description 04/13/2025 8:00 AM EDT Office Visit [facility] [address] [place] [address] Lucita Méndez, OD [address] [place] [address] 04/14/2025 8:20 AM EDT [facility] [address] [place] [address] Kerry Zaragoza MD [address] [place] [address] Follow up 04/22/2025 10:00 AM EDT Initial consult [facility] Hematology 40 [facility] 1E [place] [address] Cristal Cabrera MD 40 [place] [address] 289.89 (ICD-9-CM) - D75.89 (ICD-10-CM) - Macrocytosis without anemia 05/08/2025 3:30 PM EDT Office Visit [facility] 2nd Floor 5324 [facility] 210 [place] [address] Lizbeth Fuller MD [address] [place] [address] Marcie Macario MD 40 [place] [address] ACV visit today - schedule follow-up any provider 3-6 months for hair loss 05/11/2025 1:15 PM EDT Office Visit [facility] [address] [place] [address] Otis Bay MD 4709 [facility] [address] [place] [address] 6 month f/u per paper 06/03/2025 10:00 AM EST Nurse Only [facility] 30 [facility] [address]B 1C [place] [address] [email or web address] 01/19/2025- 2wk post op 07/01/2025 2:15 PM EST Office Visit [facility] [place] [address] [place] [address] Estefani Whipple, OD [address] [place] [address] 07/02/2025 1:40 PM EST Post Op [facility] Arrkeisha [address] [place] [address] Brisa Pugh, [place] 56[address] [facility] [address] [place] [address] [email or web address] 01/19/2025- 6wk post op 07/29/2025 10:20 AM EST Office Visit [facility] [address] [place] [address] [place] [address] Ciaran Mcgee, [address] [place] [address] [place] [address] [place] F/U 08/03/2025 1:15 PM EST Hospital Encounter [facility] 10 [place] [address] Martina Vincent MD 40 [place] [address] 08/03/2025 1:15 PM EST - 08/03/2025 4:45 PM EST Surgery [facility] 10 [place] [address] Martina Vincent MD 40 [place] [address] C3-7 laminoplast LAMINOPLASTY, CERVICAL, W/DECOMPRESSION OF SPINAL CORD, 2 OR MORE VERTEBRAL SEGMENTS; W/RECONSTRUCTION POSTERIOR BONY ELEMENTS 08/14/2025 9:20 AM EST Office Visit [facility] [address] [phone] Namrata Pollock MD [address] [place] [address] Jaimee Arroyo NP [address] [address] return Scheduled Procedures Name Priority Associated Diagnoses Date/Ti me LAMINOPLASTY, CERVICAL, W/DECOMPRESSION OF SPINAL CORD, 2 OR MORE VERTEBRAL SEGMENTS; W/RECONSTRUCTION POSTERIOR BONY ELEMENTS Spondylosis, cervical, with myelopathy Cervical stenosis of spine 08/03/2025 1:15 PM EST documented as of this encounter Procedures Procedure Name Priority Date/Time Associated Diagnosis Comments LAB RESULT EXTERNAL 04/11/2011 1 2:00 AM EDT documented in this encounter Results * LAB RESULT EXTERNAL (04/11/2011 12:00 AM EDT) Narrative 04/11/2011 12:00 AM EDT Ordered by an unspecified [...] documented as of this encounter Care Teams Combat Control Relationship Specialty Start Date End Date Jennifer Landry MD [address] [place] [address] PCP - General Internal Medicine 10/10/21 07/26/23 Jennifer Landry MD [address] [place] [address] PCP - General Internal Medicine 09/20/23 Matthieu Hernandez MD 30 [place] [address] Consulting Provider Endocrinology 09/19/22 Florecita Hopson MD [address] [address] Covering Provider Urogynecology 09/19/22 documented as of this encounter
--- OUTSIDE RECORDS SUMMARY | 2025-04-11 10:29 | XMS_ITS | Encounter Summary ---
Author Organization [facility] Address [address] [place] [address] Care Team Providers Care Rougher For Cement Name Role Phone Jennifer Landry MD Primary Care Provider + [phone] Matthieu Hernandez MD Unavailable [phone] Florecita Hopson MD Unavailable [phone] Jennifer Landry MD Primary Care Provider [phone] Encounter Details Date Type Department Care Team (Late st Contact Info) Description 03/05/2009 OnBase Orders Only On File [address] [place] [address] Social History Tobacco Use Types Packs/Day Years Used Date Smoking Tobacco: Never Assessed Comments Unknown Sex and Gender Information Value Date Recorded Sex Assigned at Female 02/13/2022 9:35 AM EDT Legal Sex Female 12:45 PM EST Gender Identity Female 02/13/2022 9:35 AM EDT Sexual Orientation Straight 02/13/2022 9: 35 AM EDT Travel History Travel Start Travel End [facility] 03/23/2025 04/06/2025 documented as of this encounter Plan of Treatment Upcoming Encounters Date Type Department Care Team (Late st Contact Info) Description 04/13/2025 8:00 AM EDT Office Visit [facility] [address] [place] [address] Lucita Méndez, OD [address] [place] [address] 04/14/2025 8:20 AM EDT [facility] 1821 [facility] [address] [place] [address] Kerry Zaragoza MD 18[address] [facility] [address] [place] [address] Follow up 04/22/2025 10:00 AM EDT Initial consult [facility] Hematology 40 [facility] 1E [place] [address] Cristal Cabrera MD 40 [place] [address] 289.89 (ICD-9-CM) - D75.89 (ICD-10-CM) - Macrocytosis without anemia 05/08/2025 3:30 PM EDT Office [facility] 2nd Floor 5324 [facility] 210 [place] [address] Lizbeth Fuller MD [address] [place] [address] Marcie Macario MD 40 [place] [address] ACV visit today - schedule follow-up any provider 3-6 months for hair loss 05/11/2025 1:15 PM EDT Office Visit [facility] [address] [place] [address] Otis Bay MD 4709 [facility] [address] [place] [address] 6 month f/u per paper 06/03/2025 10:00 AM EST Nurse Only [facility] 30 [facility] 1B 1C [place] [address] [email or web address] 01/19/2025- 2wk post op 07/01/2025 2:15 PM EST Office Visit [facility] [place] [address] [place] [address] Estefani Whipple, OD [address] [place] [address] 07/02/2025 1:40 PM EST Post Op [facility] Arrkeisha [address] [place] [address] Brisa Pugh, [place] 5601 [facility] [address] [place] [address] [email or web address] 01/19/2025- 6wk post op 07/29/2025 10:20 AM EST Office Visit [facility] [address] [place] [address] [place] [address] Ciaran Mcgee, [address] [place] [address] [place] [address] [place] F/U 08/03/2025 1:15 PM EST Hospital Encounter [facility] 10 [place] [address] Martina Vincent MD 40 [place] [address] 08/03/2025 1:15 PM EST - 08/03/2025 4:45 PM EST Surgery [facility] 10 [place] [address] Martina Vincent MD 40 [place] [address] C3-7 laminoplast LAMINOPLASTY, CERVICAL, W/DECOMPRESSION OF SPINAL CORD, 2 OR MORE VERTEBRAL SEGMENTS; W/RECONSTRUCTION POSTERIOR BONY ELEMENTS 08/14/2025 9:20 AM EST Office Visit [facility] [address] [phone] Namrata Pollock MD [address] [place] [address] Jaimee Arroyo NP [address] [address] return Scheduled Procedures Name Priority Associated Diagnoses Date/Ti me LAMINOPLASTY, CERVICAL, W/DECOMPRESSION OF SPINAL CORD, 2 OR MORE VERTEBRAL SEGMENTS; W/RECONSTRUCTION POSTERIOR BONY ELEMENTS Spondylosis, cervical, with myelopathy Cervical stenosis of spine 08/03/2025 1:15 PM EST documented as of this encounter Procedures Procedure Name Priority Date/Time Associated Diagnosis Comments LAB RESULT EXTERNAL 03/05/2009 1 2:00 AM EDT documented in this encounter Results * LAB RESULT EXTERNAL (03/05/2009 12:00 AM EDT) Narrative 03/05/2009 12:00 AM EDT Ordered by an unspecified [...] documented as of this encounter Care Teams Rougher For Cement Relationship Specialty Start Date End Date Jennifer Landry MD [address] [place] [address] PCP - General Internal Medicine 10/10/21 07/26/23 Jennifer Landry MD [address] [place] [address] PCP - General Internal Medicine 09/20/23 Matthieu Hernandez MD 30 [place] [address] Consulting Provider Endocrinology 09/19/22 Florecita Hopson MD [address] [address] Covering Provider Urogynecology 09/19/22 documented as of this encounter
--- OUTSIDE RECORDS SUMMARY | 2025-04-11 10:29 | XMS_ITS | Encounter Summary ---
Author Organization [facility] Address [address] [place] [address] Care Team Providers Care Cardiopulmonary Specialist Name Role Phone Jennifer Landry MD Primary Care Provider + [phone] Matthieu Hernandez MD Unavailable [phone] Florecita Hopson MD Unavailable [phone] Jennifer Landry MD Primary Care Provider [phone] Encounter Details Date Type Department Care Team (Late st Contact Info) Description 02/28/2011 OnBase Orders Only On File [address] [place] [address] Social History Tobacco Use Types Packs/Day Years Used Date Smoking Tobacco: Never Assessed Comments Unknown Sex and Gender Information Value Date Recorded Sex Assigned at Female 02/13/2022 9:35 AM EDT Legal Sex Female 12:45 PM EST Gender Identity Female 02/13/2022 9:35 AM EDT Sexual Orientation Straight 02/13/2022 9: 35 AM EDT Travel History Travel Start Travel End [facility] 03/23/2025 04/06/2025 documented as of this encounter Plan of Treatment Upcoming Encounters Date Type Department Care Team (Late st Contact Info) Description 04/13/2025 8:00 AM EDT Office Visit [facility] [address] [place] [address] Lucita Méndez, OD [address] [place] [address] 04/14/2025 8:20 AM EDT [facility] 18[address] [facility] [address] [place] [address] Kerry Zaragoza MD 1821 [facility] [address] [place] [address] Follow up 04/22/2025 10:00 AM EDT Initial consult [facility] Hematology 40 [facility] 1E [place] [address] Cristal Cabrera MD 40 [place] [address] 289.89 (ICD-9-CM) - D75.89 (ICD-10-CM) - Macrocytosis without anemia 05/08/2025 3:30 PM EDT Office Visit [facility] 2nd Floor 5324 [facility] 210 [place] [address] Lizbeth Fuller MD [address] [place] [address] Marcie Macario MD 40 [place] [address] ACV visit today - schedule follow-up any provider 3-6 months for hair loss 05/11/2025 1:15 PM EDT Office Visit [facility] [address] [place] [address] Otis Bay MD 4709 [facility] [address] [place] [address] 6 month f/u per paper 06/03/2025 10:00 AM EST Nurse Only [facility] 30 [facility] 1B 1C [place] [address] [email or web address] 01/19/2025- 2wk post op 07/01/2025 2:15 PM EST Office Visit [facility] [place] [address] [place] [address] Estefani Whipple, OD [address] [place] [address] 07/02/2025 1:40 PM EST Post Op [facility] Arrkeisha [address] 300 [place] [address] Brisa Pugh, [place] 5601 [facility] [address] [place] [address] [email or web address] 01/19/2025- 6wk post op 07/29/2025 10:20 AM EST Office Visit [facility] [address] [place] [address] [place] [address] Ciaran Mcgee, [address] [place] [address] [place] [address] [place] F/U 08/03/2025 1:15 PM EST Hospital Encounter [facility] 10 [place] [address] Martina Vincent MD 40 [place] [address] 08/03/2025 1:15 PM EST - 08/03/2025 4:45 PM EST Surgery [facility] 10 [place] [address] Martina Vincent MD 40 [place] [address] C3-7 laminoplast LAMINOPLASTY, CERVICAL, W/DECOMPRESSION OF SPINAL CORD, 2 OR MORE VERTEBRAL SEGMENTS; W/RECONSTRUCTION POSTERIOR BONY ELEMENTS 08/14/2025 9:20 AM EST Office Visit [facility] [address] [phone] Namrata Pollock MD [address] [place] [address] Jaimee Arroyo NP [address] [address] return Scheduled Procedures Name Priority Associated Diagnoses Date/Ti me LAMINOPLASTY, CERVICAL, W/DECOMPRESSION OF SPINAL CORD, 2 OR MORE VERTEBRAL SEGMENTS; W/RECONSTRUCTION POSTERIOR BONY ELEMENTS Spondylosis, cervical, with myelopathy Cervical stenosis of spine 08/03/2025 1:15 PM EST documented as of this encounter Procedures Procedure Name Priority Date/Time Associated Diagnosis Comments LAB RESULT EXTERNAL 02/28/2011 1 2:00 AM EDT documented in this encounter Results * LAB RESULT EXTERNAL (02/28/2011 12:00 AM EDT) Narrative 02/28/2011 12:00 AM EDT Ordered by an unspecified [...] documented as of this encounter Care Teams Cardiopulmonary Specialist Relationship Specialty Start Date End Date Jennifer Landry MD [address] [place] [address] PCP - General Internal Medicine 10/10/21 07/26/23 Jennifer Landry MD [address] [place] [address] PCP - General Internal Medicine 09/20/23 Matthieu Hernandez MD 30 [place] [address] Consulting Provider Endocrinology 09/19/22 Florecita Hopson MD [address] [address] Covering Provider Urogynecology 09/19/22 documented as of this encounter
--- OUTSIDE RECORDS SUMMARY | 2025-04-11 10:29 | XMS_ITS | Encounter Summary ---
Author Organization [facility] Address [address] [place] [address] Care Team Providers Care Contact Acid Plant Operator Helper Name Role Phone Jennifer Landry MD Primary Care Provider + [phone] Matthieu Hernandez MD Unavailable [phone] Florecita Hopson MD Unavailable [phone] Jennifer Landry MD Primary Care Provider [phone] Encounter Details Date Type Department Care Team (Late st Contact Info) Description 07/08/2011 OnBase Orders Only On File [address] [place] [address] Social History Tobacco Use Types Packs/Day Years Used Date Smoking Tobacco: Never Assessed Comments Unknown Sex and Gender Information Value Date Recorded Sex Assigned at Female 02/13/2022 9:35 AM EDT Legal Sex Female 12:45 PM EST Gender Identity Female 02/13/2022 9:35 AM EDT Sexual Orientation Straight 02/13/2022 9: 35 AM EDT Travel History Travel Start Travel End [facility] 03/23/2025 04/06/2025 documented as of this encounter Plan of Treatment Upcoming Encounters Date Type Department Care Team (Late st Contact Info) Description 04/13/2025 8:00 AM EDT Office Visit [facility] [address] [place] [address] Lucita Méndez, OD [address] [place] [address] 04/14/2025 8:20 AM EDT [facility] 18[address] [facility] [address] [place] [address] Kerry Zaragoza MD 18[address] [facility] [address] [place] [address] Follow up 04/22/2025 10:00 AM EDT Initial consult [facility] Hematology 40 [facility] 1E [place] [address] Cristal Cabrera MD 40 [place] [address] 289.89 (ICD-9-CM) - D75.89 (ICD-10-CM) - Macrocytosis without anemia 05/08/2025 3:30 PM EDT Office Visit [facility] 2nd Floor 5324 [facility] 210 [place] [address] Lizbeth Fuller MD [address] [facility] [address] [place] [address] Marcie Macario MD 40 [place] [address] ACV visit today - schedule follow-up any provider 3-6 months for hair loss 05/11/2025 1:15 PM EDT Office Visit [facility] [address] [place] [address] Otis Bay MD 4709 [facility] [address] [place] [address] 6 month f/u per paper 06/03/2025 10:00 AM EST Nurse Only [facility] 30 [facility] 1B [address]C [place] [address] [email or web address] 01/19/2025- 2wk post op 07/01/2025 2:15 PM EST Office Visit [facility] [place] [address] [place] [address] Estefani Whipple, OD [address] [place] [address] 07/02/2025 1:40 PM EST Post Op [facility] Arrkeisha [address] [place] [address] Brisa Pugh, [place] 5601 [facility] [address] [place] [email or web address] 01/19/2025- 6wk post op 07/29/2025 10:20 AM EST Office Visit [facility] [address] [place] [address] [place] [address] Ciaran Mcgee, [address] [place] [address] [place] [address] MO F/U 08/03/2025 1:15 PM EST Hospital Encounter [facility] [facility] 10 [place] [address] Martina Vincent MD 40 [place] [address] 08/03/2025 1:15 PM EST - 08/03/2025 4:45 PM EST Surgery [facility] 10 [place] [address] Martina Vincent MD 40 [place] [address] C3-7 laminoplast LAMINOPLASTY, CERVICAL, W/DECOMPRESSION OF SPINAL CORD, 2 OR MORE VERTEBRAL SEGMENTS; W/RECONSTRUCTION POSTERIOR BONY ELEMENTS 08/14/2025 9:20 AM EST Office Visit [facility] [address] [address] Namrata Pollock MD [address]20 [place] [address] Jaimee Arroyo NP [address] [address] return Scheduled Procedures Name Priority Associated Diagnoses Date/Ti me LAMINOPLASTY, CERVICAL, W/DECOMPRESSION OF SPINAL CORD, 2 OR MORE VERTEBRAL SEGMENTS; W/RECONSTRUCTION POSTERIOR BONY ELEMENTS Spondylosis, cervical, with myelopathy Cervical stenosis of spine 08/03/2025 1:15 PM EST documented as of this encounter Procedures Procedure Name Priority Date/Time Associated Diagnosis Comments LAB RESULT EXTERNAL 07/08/2011 1 2:00 AM EST documented in this encounter Results * LAB RESULT EXTERNAL (07/08/2011 12:00 AM EST) Narrative 07/08/2011 12:00 AM EST Ordered by an unspecified [...] documented as of this encounter Care Teams Contact Acid Plant Operator Helper Relationship Specialty Start Date End Date Jennifer Landry MD [address] [place] [address] PCP - General Internal Medicine 10/10/21 07/26/23 Jennifer Landry MD [address] [place] [address] PCP - General Internal Medicine 09/20/23 Matthieu Hernandez MD 30 [place] [address] Consulting Provider Endocrinology 09/19/22 Florecita Hopson MD [address] [address] Covering Provider Urogynecology 09/19/22 documented as of this encounter
--- OUTSIDE RECORDS SUMMARY | 2025-04-11 10:29 | XMS_ITS | Encounter Summary ---
Author Organization [facility] Address [address] [place] [address] Care Team Providers Care Sports Clerk Name Role Phone Jennifer Landry MD Primary Care Provider + [phone] Matthieu Hernandez MD Unavailable [phone] Florecita Hopson MD Unavailable [phone] Jennifer Landry MD Primary Care Provider [phone] Encounter Details Date Type Department Care Team (Late st Contact Info) Description 02/02/2009 OnBase Orders Only On File [address] [place] [address] Social History Tobacco Use Types Packs/Day Years Used Date Smoking Tobacco: Never Assessed Comments Unknown Sex and Gender Information Value Date Recorded Sex Assigned at Female 02/13/2022 9:35 AM EDT Legal Sex Female 12:45 PM EST Gender Identity Female 02/13/2022 9:35 AM EDT Sexual Orientation Straight 02/13/2022 9: 35 AM EDT Travel History Travel Start Travel End [facility] 03/23/2025 04/06/2025 documented as of this encounter Plan of Treatment Upcoming Encounters Date Type Department Care Team (Late st Contact Info) Description 04/13/2025 8:00 AM EDT Office Visit [facility] [address] [place] [address] Lucita Méndez, OD [address] [place] [address] 04/14/2025 8:20 AM EDT [facility] [address] [facility] [address] [place] [address] Kerry Zaragoza MD [address] [facility] [address] [place] [address] Follow up 04/22/2025 10:00 AM EDT Initial consult [facility] H[facility]ology [address] [facility] [address] [place] [address] Cristal Cabrera MD 40 [place] [address] 289.89 (ICD-9-CM) - D75.89 (ICD-10-CM) - Macrocytosis without anemia 05/08/2025 3:30 PM EDT Office Visit [facility] 2nd Floor [address] [facility] 210 [place] [address] Lizbeth Fuller MD [address] [place] [address] Marcie Macario MD 40 [place] [address] ACV visit today - schedule follow-up any provider 3-6 months for hair loss 05/11/2025 1:15 PM EDT Office Visit [facility] [address] [place] [address] Otis Bay MD [address] [facility] [address] [place] [address] 6 month f/u per paper 06/03/2025 10:00 AM EST Nurse Only [facility] 30 [facility] [address] [place] [address] [email or web address] 01/19/2025- 2wk post op 07/01/2025 2:15 PM EST Office Visit [facility] [place] [address] [place] [address] Estefani Whipple, OD [address] [place] [address] 07/02/2025 1:40 PM EST Post Op [facility] Arrkeisha [address] [place] [address] Brisa Pugh, [place]STER [address] [facility] [address] [place] [address] [email or web address] 01/19/2025- 6wk post op 07/29/2025 10:20 AM EST Office Visit [facility] [address] [place] [address] [place] [address] Ciaran Mcgee, [address] [place] [address] [place] [address] [place] F/U 08/03/2025 1:15 PM EST Hospital Encounter [facility] 10 [place] [address] Martnia Vincent MD 40 [place] [address] 08/03/2025 1:15 PM EST - 08/03/2025 4:45 PM EST Surgery [facility] 10 [place] [address] Martina Vincent MD 40 [place] [address] C3-7 laminoplast LAMINOPLASTY, CERVICAL, W/DECOMPRESSION OF SPINAL CORD, 2 OR MORE VERTEBRAL SEGMENTS; W/RECONSTRUCTION POSTERIOR BONY ELEMENTS 08/14/2025 9:20 AM EST Office Visit [facility] [address] [phone] Namrata Pollock MD [address] [place] [address] Jaimee Arroyo NP [address] [address] return Scheduled Procedures Name Priority Associated Diagnoses Date/Ti me LAMINOPLASTY, CERVICAL, W/DECOMPRESSION OF SPINAL CORD, 2 OR MORE VERTEBRAL SEGMENTS; W/RECONSTRUCTION POSTERIOR BONY ELEMENTS Spondylosis, cervical, with myelopathy Cervical stenosis of spine 08/03/2025 1:15 PM EST documented as of this encounter Procedures Procedure Name Priority Date/Time Associated Diagnosis Comments LAB RESULT EXTERNAL 02/02/2009 1 2:00 AM EDT documented in this encounter Results * LAB RESULT EXTERNAL (02/02/2009 12:00 AM EDT) Narrative 02/02/2009 12:00 AM EDT Ordered by an unspecified [...] documented as of this encounter Care Teams Sports Clerk Relationship Specialty Start Date End Date Jennifer aLndry MD [address] [place] [address] PCP - General Internal Medicine 10/10/21 07/26/23 Jennifer Landry MD [address] [place] [address] PCP - General Internal Medicine 09/20/23 Matthieu Hernandez MD 30 [place] [address] Consulting Provider Endocrinology 09/19/22 Florecita Hopson MD [address] [address] Covering Provider Urogynecology 09/19/22 documented as of this encounter
--- OUTSIDE RECORDS SUMMARY | 2025-04-11 10:29 | XMS_ITS | Encounter Summary ---
Author Organization [facility] Address [address] [place] [address] Care Team Providers Care Sandfill Operator Name Role Phone Jennifer Landry MD Primary Care Provider + [phone] Matthieu Hernandez MD Unavailable [phone] Florecita Hopson MD Unavailable [phone] Jennifer Landry MD Primary Care Provider [phone] Encounter Details Date Type Department Care Team (Late st Contact Info) Description 07/06/2011 OnBase Orders Only On File [address] [place] [address] Social History Tobacco Use Types Packs/Day Years Used Date Smoking Tobacco: Never Assessed Comments Unknown Sex and Gender Information Value Date Recorded Sex Assigned at Female 02/13/2022 9:35 AM EDT Legal Sex Female 12:45 PM EST Gender Identity Female 02/13/2022 9:35 AM EDT Sexual Orientation Straight 02/13/2022 9: 35 AM EDT Travel History Travel Start Travel End [facility] 03/23/2025 04/06/2025 documented as of this encounter Plan of Treatment Upcoming Encounters Date Type Department Care Team (Late st Contact Info) Description 04/13/2025 8:00 AM EDT Office Visit [facility] [address] [place] [address] Lucita Méndez, OD [address] [place] [address] 04/14/2025 8:20 AM EDT [facility] [address] [facility] [address] [place] [address] Kerry Zargaoza MD [address] [facility] [address] [place] [address] Follow up 04/22/2025 10:00 AM EDT Initial consult [facility] [address] [facility] [address] [place] [address] Cristal Cabrera MD 40 [place] [address] 289.89 (ICD-9-CM) - D75.89 (ICD-10-CM) - Macrocytosis without anemia 05/08/2025 3:30 PM EDT Office Visit [facility] 2nd Floor 5[address] [facility] 210 [place] [address] Lizbeth Fuller MD [address] [facility] [address] [place] [address] Marcie Macario MD 40 [place] [address] ACV visit today - schedule follow-up any provider 3-6 months for hair loss 05/11/2025 1:15 PM EDT Office Visit [facility] [address] [place] [address] Otis Bay MD 4709 [facility] [address] [place] [address] 6 month f/u per paper 06/03/2025 10:00 AM EST Nurse Only [facility] 30 [facility] [address] [place] [address] [email or web address] 01/19/2025- 2wk post op 07/01/2025 2:15 PM EST Office Visit [facility] [place] [address] [place] [address] Estefani Whipple, OD [address] [place] [address] 07/02/2025 1:40 PM EST Post Op [facility] [place] [address] Brisa Pugh, [place] 5601 [facility] [address] [place] [address] [email or web address] 01/19/2025- 6wk post op 07/29/2025 10:20 AM EST Office Visit [facility] [address] [place] [address] [place] [address] Ciaran Mcgee, [address] [place] [address] [place] [address] MO F/U 08/03/2025 1:15 PM EST Hospital Encounter [facility] 10 [place] [address] Martina Vincent MD 40 [place] [address] 08/03/2025 1:15 PM EST - 08/03/2025 4:45 PM EST Surgery [facility] 10 [place] [address] Martina Vincent MD 40 [place] [address] C3-7 laminoplast LAMINOPLASTY, CERVICAL, W/DECOMPRESSION OF SPINAL CORD, 2 OR MORE VERTEBRAL SEGMENTS; W/RECONSTRUCTION POSTERIOR BONY ELEMENTS 08/14/2025 9:20 AM EST Office [facility] [address] [address] Namrata Pollock MD [address] [place] [address] Jaimee Arroyo NP [address] [address] return Scheduled Procedures Name Priority Associated Diagnoses Date/Ti me LAMINOPLASTY, CERVICAL, W/DECOMPRESSION OF SPINAL CORD, 2 OR MORE VERTEBRAL SEGMENTS; W/RECONSTRUCTION POSTERIOR BONY ELEMENTS Spondylosis, cervical, with myelopathy Cervical stenosis of spine 08/03/2025 1:15 PM EST documented as of this encounter Procedures Procedure Name Priority Date/Time Associated Diagnosis Comments LAB RESULT EXTERNAL 07/06/2011 1 2:00 AM EST documented in this encounter Results * LAB RESULT EXTERNAL (07/06/2011 12:00 AM EST) Narrative 07/06/2011 12:00 AM EST Ordered by an unspecified [...] documented as of this encounter Care Teams Sandfill Operator Relationship Specialty Start Date End Date Jennifer Landry MD [address] [place] [address] PCP - General Internal Medicine 10/10/21 07/26/23 Jennifer Landry MD [address] [place] [address] PCP - General Internal Medicine 09/20/23 Matthieu Hernandez MD 30 [place] [address] Consulting Provider Endocrinology 09/19/22 Florecita Hopson MD [address] [address] Covering Provider Urogynecology 09/19/22 documented as of this encounter
--- OUTSIDE RECORDS SUMMARY | 2025-04-11 10:29 | XMS_ITS | Encounter Summary ---
Author Organization [facility] Address [address] [place] [address] Care Team Providers Care Jewelry Manager Name Role Phone Jennifer Landry MD Primary Care Provider + [phone] Matthieu Hernandez MD Unavailable [phone] Florecita Hopson MD Unavailable [phone] Jennifer Landry MD Primary Care Provider [phone] Encounter Details Date Type Department Care Team (Late st Contact Info) Description 05/09/2011 OnBase Orders Only On File [address] [place] [address] Social History Tobacco Use Types Packs/Day Years Used Date Smoking Tobacco: Never Assessed Comments Unknown Sex and Gender Information Value Date Recorded Sex Assigned at Female 02/13/2022 9:35 AM EDT Legal Sex Female 12:45 PM EST Gender Identity Female 02/13/2022 9:35 AM EDT Sexual Orientation Straight 02/13/2022 9: 35 AM EDT Travel History Travel [facility] 03/23/2025 04/06/2025 documented as of this encounter Plan of Treatment Upcoming Encounters Date Type Department Care Team (Late st Contact Info) Description 04/13/2025 8:00 AM EDT Office Visit [facility] [address] [place] [address] Lucita Méndez, OD [address] [place] [address] 04/14/2025 8:20 AM EDT [facility] [address] [facility] [address] [place] [address] Kerry Zaragoza MD [address] [facility] [address] [place] [address] Follow up 04/22/2025 10:00 AM EDT Initial consult [facility] Hematology [address] [facility] 1E [place] [address] Cristal Cabrera MD 40 [place] [address] 289.89 (ICD-9-CM) - D75.89 (ICD-10-CM) - Macrocytosis without anemia 05/08/2025 3:30 PM EDT Office [facility] 2nd Floor 5324 [facility] 210 [place] [address] Lizbeth Fuller MD [address] [place] [address] Marcie Macario MD 40 [place] [address] ACV visit today - schedule follow-up any provider 3-6 months for hair loss 05/11/2025 1:15 PM EDT Office Visit [facility] [address] [place] [address] Otis Bay MD 4709 [facility] [address] [place] [address] 6 month f/u per paper 06/03/2025 10:00 AM EST Nurse Only [facility] 30 [facility] [address]C [place] [address] [email or web address] 01/19/2025- 2wk post op 07/01/2025 2:15 PM EST Office Visit [facility] [place] [place] [address] Estefani Whipple, OD [address] [place] [address] 07/02/2025 1:40 PM EST Post Op [facility] [address] [place] [address] Brias Pugh, [place] 5601 [facility] [address] [place] [address] [email or web address] 01/19/2025- 6wk post op 07/29/2025 10:20 AM EST Office Visit [facility] [address] [place] [address] [place] [address] Ciaran Mcgee, [address] [place] [address] [place] [address] MO F/U 08/03/2025 1:15 PM EST Hospital Encounter [facility] 10 [place] [address] Martina Vincent MD 40 [place] [address] 08/03/2025 1:15 PM EST - 08/03/2025 4:45 PM EST Surgery [facility] 10 [place] [address] Martina Vincent MD 40 [place] [address] C3-7 laminoplast LAMINOPLASTY, CERVICAL, W/DECOMPRESSION OF SPINAL CORD, 2 OR MORE VERTEBRAL SEGMENTS; W/RECONSTRUCTION POSTERIOR BONY ELEMENTS 08/14/2025 9:20 AM EST Office [facility] [address] [phone] Namrata Pollock MD [address]20 [place] [address] Jaimee Arroyo NP [address] [address] return Scheduled Procedures Name Priority Associated Diagnoses Date/Ti me LAMINOPLASTY, CERVICAL, W/DECOMPRESSION OF SPINAL CORD, 2 OR MORE VERTEBRAL SEGMENTS; W/RECONSTRUCTION POSTERIOR BONY ELEMENTS Spondylosis, cervical, with myelopathy Cervical stenosis of spine 08/03/2025 1:15 PM EST documented as of this encounter Procedures Procedure Name Priority Date/Time Associated Diagnosis Comments EXTERNAL RADIOLOGY RESULT - OTHER 05/09/2011 12:00 AM EDT EXTERNAL RADIOLOGY RESULT - OTHER 05/09/2011 12:00 AM EDT documented in this encounter Results * EXTERNAL RADIOLOGY RESULT - OTHER (05/09/2011 12:00 AM EDT) Anatomical Region Laterality Modality Other Narrative 05/09/2011 12:00 AM EDT Ordered by an unspecified provider. us On-File Provider PROCEDURE/MINOR SURGICAL ORDERA BLES Final Result * EXTERNAL RADIOLOGY RESULT - OTHER (05/09/2011 12:00 AM EDT) Anatomical Region Laterality Modality Other Narrative 05/09/2011 12:00 AM EDT Ordered by an unspecified [...] documented as of this encounter Care Teams Jewelry Manager Relationship Specialty [place] [address] [place] [address] PCP - General Internal Medicine 10/10/21 07/26/23 Jennifer Landry MD [address] [place] [address] PCP - General Internal Medicine 09/20/23 Matthieu Hernandez MD 30 [place] [address] Consulting Provider Endocrinology 09/19/22 Florecita Hopson MD [address] [address] Covering Provider Urogynecology 09/19/22 documented as of this encounter
--- OUTSIDE RECORDS SUMMARY | 2025-04-11 10:30 | XMS_ITS | Encounter Summary ---
Author Organization [facility] Address [address] [place] [address] Care Team Providers Care Handtools Repairer Name Role Phone Matthieu Hernandez MD Unavailable [phone] Florecita Hopson MD Unavailable [phone] Jennifer Landry MD Primary Care Provider [phone] Encounter Details Date Type Department Care Team (Late st Contact Info) Description 05/08/2024 [facility] Integrative Medicine [address] [place] [address] [place] [address] Jennifer Landry MD [address] [place] [address] Social History Tobacco Use Types Packs/Day Years Used Date Smoking Tobacco: Never Passive Smoke Exposure: Never Smokeless Tobacco: Never Comments:Exposed to second h and smoke in childhood home. Alcohol Use Standard Drinks/Week Comments Yes 2 (1 standard drink = 0.6 oz pur e alcohol) Socially [facility] Utilities Answer Date Recorded In the past 12 months has e electric, gas, oil, or water [employer] threatened to shut off services in your home? Patient declined 02/03/2024 Overall Financial Resource Strain (CARDIA) Answe r Date Recorded How hard is it for you to pa y for the very basics like food, housing, medical care, and heating? Patient declined 02/03/2024 PHQ-2 Answer Date Recorded (OBSOLETE) Total Prescreening Score 0 06/29/2023 Hunger Vital Sign Answer Date Recorded Within the past 12 months, y ou worried that your food would run out before you got the money to buy more. Patient declined Within the past 12 months, t he food you bought just didn't last and you didn't have money to get more. Patient declined PRAPARE - Transportation Answer Date Re corded In the past 12 months, has l ack of transportation kept you from medical appointments or from getting medications? Patient declined 02/03/2024 In the past 12 months, has l ack of transportation kept you from meetings, work, or from getting things needed for daily living? Patient declined 02/03/2024 PHQ-9 Answer Date Recorded (OBSOLETE) PHQ-9 Total Score= 3 Housing Stability Vital Sign Answer Rodolfo e Recorded In the last 12 months, was t here a time when you were not able to pay the mortgage or rent on time? Patient declined 02/03/20 24 Number of Times Moved in the Last Year Not on fi le 02/03/2024 At any time in the past 12 m [facility], were you homeless or living in a prison (including now)? Patient declined 02/03/2024 Interpersonal Safety Answer Date Record ed Is Anyone Hurting/Threatening You or Making You Feel Afraid? No 09/24/2023 Is Anyone Hurting/Threatening You or Making You Feel Afraid? No 09/24/2023 Comments No Sex and Gender Information Value Date Recorded Sex Assigned at Female 02/13/2022 9:35 AM EDT Legal Sex Female 12:45 PM EST Gender Identity Female 02/13/2022 9:35 AM EDT Sexual Orientation Straight 02/13/2022 9: 35 AM EDT Travel History Travel Start Travel End [facility] 03/23/2025 04/06/2025 documented as of this encounter Plan of Treatment Upcoming Encounters Date Type Department Care Team (Late st Contact Info) Description 04/13/2025 8:00 AM EDT Office Visit [facility] [address] [place] [address] Lucita Méndez, OD [address] [place] [address] 04/14/2025 8:20 AM EDT [facility] [address] [facility] [address] [place] [address] Kerry Zaragoza MD [address] [facility] [address] [place] [address] Follow up 04/22/2025 10:00 AM EDT Initial consult [facility] Hematology 40 [facility] 1E [place] [address] Cristal Cabrera MD 40 [place] [address] 289.89 (ICD-9-CM) - D75.89 (ICD-10-CM) - Macrocytosis without anemia 05/08/2025 3:30 PM EDT Office Visit [facility] 2nd Floor [address] [place] [address] 210 [place] [address] Lizbeth Fuller MD [address] [facility] [address] [place] [address] Marcie Macario MD 40 [place] [address] ACV visit today - schedule follow-up any provider 3-6 months for hair loss 05/11/2025 1:15 PM EDT Office Visit [facility] [address] [place] [address] Otis Bay MD 4709 [facility] [address] [place] [address] 6 month f/u per paper 06/03/2025 10:00 AM EST Nurse Only [facility] 30 [facility] 1[address] [place] [address] [email or web address] 01/19/2025- 2wk post op 07/01/2025 2:15 PM EST Office [facility] [address] [place] [address] Estefani Whipple, OD [address] [place] [address] 07/02/2025 1:40 PM EST Post Op [facility] [address] [place] [address] Brisa Pugh, [place] 5601 [facility] [address] [place] [address] [email or web address] 01/19/2025- 6wk post op 07/29/2025 10:20 AM EST Office Visit [facility] [address] [place] [address] [place] [address] Ciaran Mcgee, [address] [place] [address] [place] [address] MO F/U 08/03/2025 1:15 PM EST Hospital Encounter [facility] 10 [place] [address] Martina Vincent MD 40 [place] [address] 08/03/2025 1:15 PM EST - 08/03/2025 4:45 PM EST Surgery [facility] 10 [place] [address] Martina Vincent MD 40 [place] [address] C3-7 laminoplast LAMINOPLASTY, CERVICAL, W/DECOMPRESSION OF SPINAL CORD, 2 OR MORE VERTEBRAL SEGMENTS; W/RECONSTRUCTION POSTERIOR BONY ELEMENTS 08/14/2025 9:20 AM EST Office Visit [facility] [address] [phone] Namrata Pollock MD 4220 [place] [address] Jaimee Arroyo, [place] 4220 [place] [address] return Scheduled Procedures Name Priority Associated Diagnoses [...] documented as of this encounter Care Teams Handtools Repairer Relationship Specialty Start Date End Date Jennifer Landry MD [address] [place] [address] PCP - General Internal Medicine 09/20/23 Matthieu Hernandez MD 30 [place] [address] Consulting Provider Endocrinology 09/19/22 Florecita Hopson MD [address] [address] Covering Provider Urogynecology 09/19/22 documented as of this encounter
--- OUTSIDE RECORDS SUMMARY | 2025-04-11 10:30 | XMS_ITS | Encounter Summary ---
Author Organization [facility] Address [address] [place] [address] Care Team Providers Care Physician/Allergy/Immunology Name Role Phone Matthieu Hernandez MD Unavailable [phone] Florecita Hopson MD Unavailable [phone] Jennifer Landry MD Primary Care Provider [phone] Encounter Details Date Type Department Care Team (Late st Contact Info) Description 12/30/2023 Orders Only [facility] Integrative Medicine [address] [place] [address] Integr[place] [address] Jennifer Landry MD [address] [place] [address] Elevated serum creatinine (Primary Dx); Kidney disease Social History Tobacco Use Types Packs/Day Years Used Date Smoking Tobacco: Never Passive Smoke Exposure: Never Smokeless Tobacco: Never Comments:second hand smoke f rom cigarettes and cigars Father, siblings Alcohol Use Standard Drinks/Week Comments Yes 2 (1 standard drink = 0.6 oz pur e alcohol) Socially PHQ-2 Answer Date Recorded (OBSOLETE) Total Prescreening Score 0 06/29/2023 PHQ-9 Answer Date Recorded (OBSOLETE) PHQ-9 Total Score= 3 Interpersonal Safety Answer Date Record ed Is [...] EDT Travel History Travel Start Travel End [facility] 03/23/2025 04/06/2025 documented as of this encounter Plan of Treatment Upcoming Encounters Date Type Department Care Team (Late st Contact Info) Description 04/13/2025 8:00 AM EDT Office Visit [facility] [address] [place] [phone] Busuioc, Lucita Judy, OD [address] [place] [address] 04/14/2025 8:20 AM EDT [facility] [address] [facility] [address] [place] [address] Kerry Zaragoza MD [address] [facility] [address] [place] [address] Follow up 04/22/2025 10:00 AM EDT Initial consult [facility] Hematology 40 [facility] [address] [place] [address] Cristal Cabrera MD 40 [place] [address] 289.89 (ICD-9-CM) - D75.89 (ICD-10-CM) - Macrocytosis without anemia 05/08/2025 3:30 PM EDT Office Visit [facility] 2nd Floor [address] [facility] [address] [place] [address] Lizbeth Fuller MD [address] [facility] [address] [place] [address] Marcie Macario MD 40 [place] [address] ACV visit today - schedule follow-up any provider 3-6 months for hair loss 05/11/2025 1:15 PM EDT Office Visit [facility] [address] [place] [address] Otis Bay MD [address] [place] [address] 6 month f/u per paper 06/03/2025 10:00 AM EST Nurse Only [facility] 30 [facility] [address] [place] [address] [email or web address] 01/19/2025- 2wk post op 07/01/2025 2:15 PM EST Office Visit [facility] [address] [place] [phone] Estefani Whipple, OD [address] [place] [address] 07/02/2025 1:40 PM EST Post Op [facility] [address] [place] [address] Brisa Pugh, [place] [address] [address] [email or web address] 01/19/2025- 6wk post op 07/29/2025 10:20 AM EST Office Visit [facility] [address] [facility] [address] [place] [phone] Ciaran Mcgee, [address] [place] [address] [place] [address] MO F/U 08/03/2025 1:15 PM EST Hospital Encounter [facility] [address] [place] [address] Martina Vincent MD [address] [place] [address] 08/03/2025 1:15 PM EST - 08/03/2025 4:45 PM EST Surgery [facility] [address] [place] [address] Martina Vincent MD 40 [place] [address] C3-7 laminoplast LAMINOPLASTY, CERVICAL, W/DECOMPRESSION OF SPINAL CORD, 2 OR MORE VERTEBRAL SEGMENTS; W/RECONSTRUCTION POSTERIOR BONY ELEMENTS 08/14/2025 9:20 AM EST Office Visit [facility] [address] [place] [phone] [place] [address] [place] [address] [place] [address] [place] [address] return Scheduled Procedures Name Priority Associated Diagnoses Date/Ti me LAMINOPLASTY, CERVICAL, W/DECOMPRESSION OF SPINAL CORD, 2 OR MORE VERTEBRAL SEGMENTS; W/RECONSTRUCTION POSTERIOR BONY ELEMENTS Spondylosis, cervical, with myelopathy Cervical stenosis of spine 08/03/2025 1:15 PM EST documented as of this encounter Results * Urinalysis Chemical with Microscopic Review (01/10/2024 9:35 AM EDT) Color Light Yellow Colorless, Straw, Light Yellow, Yellow, Dark Yellow 01/10/2024 2:00 PM EDT [facility] Clarity Clear Clear 01/10/2024 2:00 PM EDT [facility] Specific [place] 1.013 1.005 - 1.030 01/10/2024 2:00 PM EDT [facility] pH, Urine 5.5 5.0 - 8.0 01/10/2024 2:00 PM EDT [facility] Protein, Urinalysis Negative Negative 01/10/2024 2:00 PM EDT [facility] Glucose, Urinalysis Negative Negative 01/10/2024 2:00 PM EDT [facility] Ketones, Urinalysis Negative Negative 01/10/2024 2:00 PM EDT [facility] Blood, Urinalysis Negative Negative 01/10/2024 2:00 PM EDT [facility] Nitrite, Urinalysis Negative Negative 01/10/2024 2:00 PM EDT [facility] Leukocytes, Urinalysis Negative Negative 01/10/2024 2:00 PM EDT [facility] Bilirubin, Urinalysis Negative Negative 01/10/2024 2:00 PM EDT [facility] Urobilinogen, Urinalysis 0.2 0.2 - 1.0 mg/dL 01/10/2024 2:00 PM EDT [facility] Red Blood Cells, Urinalysis <1 <=3 /hpf 01/10/2024 2:00 PM EDT [facility] WBC, UA 2 <=5 /hpf 01/10/2024 2:00 PM EDT [facility] Squamous Epithelial Cells, Urinalysis 0 /hpf 01/10/2024 2:00 PM EDT [facility] Hyaline Casts 1 /lpf 01/10/2024 2:00 PM EDT [facility] Comment:Occasional hyaline c asts may be found in normal urine. Urine Collection / Unknown 01/10/2024 9:35 AM EDT 01/10/2024 1:25 PM EDT Narrative [facility] - 01/10/2024 2:00 PM EDT Reporting of microscopic urinalysis (UA) bacteria and yeast results was discontinued on March 21, 2021 due to poor clinical predictive value for urinary tract infection (UTI). Providers should use other clinical signs and symptoms to diagnose UTI including urine leukocyte esterase, white blood cell count, and culture in accordance with local and national guidelines. Additional information and rationale can obtained by emailing [email or web address] Jennifer Landry MD URINE ORDERABLES Final Re sult [facility] [address], [address] [place] [address] * (ABNORMAL) Basic Metabolic Panel (BMP) (01/10/2024 9:35 AM EDT) Sodium 138 135 - 145 mmol/L 01/10/2024 1:30 PM EDT [facility] Potassium 4.2 3.5 - 5.0 mmol/L 01/10/2024 1:30 PM EDT [facility] Chloride 104 98 - 108 mmol/L 01/10/2024 1:30 PM EDT [facility] Carbon Dioxide (CO2) 25 21 - 30 mmol/L 01/10/2024 1:30 PM EDT [facility] Urea Nitrogen (BUN) 16 7 - 20 mg/dL 01/10/2024 1:30 PM EDT [facility] Creatinine 1.1(H) 0.4 - 1.0 mg/dL 01/10/2024 1:30 PM EDT [facility] Glucose 118 70 - 140 mg/dL 01/10/2024 1:30 PM EDT [facility] Comment: Interpretive Data: Above is the NONFASTING reference range. Below are the FASTING reference ranges: NORMAL: 70-99 mg/dL PREDIABETES: 100-125 mg/dL DIABETES: > 125 mg/dL Calcium 9.1 8.7 - 10.2 mg/dL 01/10/2024 1:30 PM EDT [facility] Anion Gap 9 3 - 12 mmol/L 01/10/2024 1:30 PM EDT [facility] BUN/CREA Ratio 15 6 - 27 01/10/2024 1:30 PM EDT [facility] Glomerular Filtration Rate (eGFR) 55 mL/min/1.7 3sq m 01/10/2024 1:30 PM EDT [facility] Comment: CKD-EPI (2020) does not include patient's race in the calculation of eGFR. Monitoring changes of plasma creatinine and eGFR over time is useful for monitoring kidney function. This change was made on 09/20/2021. Interpretive Ranges for eGFR(CKD-EPI 2020): eGFR: > 60 mL/min/1.73 sq m - Normal eGFR: 30 - 59 mL/min/1.73 sq m - Moderately Decreased eGFR: 15 - 29 mL/min/1.73 sq m - Severely Decreased eGFR: < 15 mL/min/1.73 sq m - Kidney Failure Note: These eGFR calculations do not apply in acute situations when eGFR is changing rapidly or in patients on dialysis. Blood Venipuncture / Unknown 01/10/2024 9:35 AM EDT 01/10/2024 1:08 PM EDT us Jennifer Landry MD LAB BLOOD ORDERABLES Zoila l Result [facility] [address] [facility], Room [address] [place] [address] documented in this encounter Visit Diagnoses Diagnosis Elevated serum creatinine- Primary Other nonspecific findings on examination of blood Kidney disease Unspecified disorder of kidney and ureter Spondylosis, cervical, with myelopathy Cervical spondylosis with myelopathy Cervical stenosis of spine Spinal stenosis in cervical region documented in this encounter Additional Health Concerns Infection Onset Date Last Indicated Resolved Time Rule Out Respiratory Virus 07/09/2024 07/09/2024 1 09/10/2023 11:37 AM EST Influenza 09/03/2024 09/03/2024 09/13/2024 1:30 AM EST documented as of this encounter Care Teams Physician/Allergy/Immunology Relationship Specialty Start Date End Date Jennifer Landry MD [address] [place] [address] PCP - General Internal Medicine 09/20/23 Matthieu Hernandez MD [address] [place] [address] Consulting Provider Endocrinology 09/19/22 Florecita Hopson MD [address] [address] Covering Provider Urogynecology 09/19/22 documented as of this encounter
--- OUTSIDE RECORDS SUMMARY | 2025-04-11 10:30 | XMS_ITS | Encounter Summary ---
Author Organization [facility] Address [address] [place] [address] Care Team Providers Care Brake Linings Coater Name Role Phone Matthieu Hernandez MD Unavailable [phone] Florecita Hopson MD Unavailable [phone] Jennifer Landry MD Primary Care Provider [phone] Encounter Details Date Type Department Care Team (Late st Contact Info) Description 11/12/2023 OnBase Documentation On File [address] [place] [phone] Social History Tobacco Use Types Packs/Day Years Used Date Smoking Tobacco: Never Passive Smoke Exposure: Never Smokeless Tobacco: Never Alcohol Use Standard Drinks/Week Comments Yes 2 [...] EDT Travel History Travel Start Travel End [facility] 03/23/2025 04/06/2025 documented as of this encounter Plan of Treatment Upcoming Encounters Date Type Department Care Team (Late st Contact Info) Description 04/13/2025 8:00 AM EDT Office Visit [facility] [address] [place] [phone] Lucita Méndez, OD [address] [place] [address] 04/14/2025 8:20 AM EDT [facility] [address] [facility] [address] [place] [phone] [place] [address] [place] [address] [address] [address] Follow up 04/22/2025 10:00 AM EDT Initial consult [facility] Hematology 40 [facility] [address] [place] [address] Cristal Cabrera MD 40 [place] [address] 289.89 (ICD-9-CM) - D75.89 (ICD-10-CM) - Macrocytosis without anemia 05/08/2025 3:30 PM EDT Office Visit [facility] 2nd Floor [address] [place] [address] [place] [address] Lizbeth Fuller MD [address] [facility] [address] [place] [address] Marcie Macario MD 40 [place] [address] ACV visit today - schedule follow-up any provider 3-6 months for hair loss 05/11/2025 1:15 PM EDT Office Visit [facility] [address] [place] [address] Otis Bay MD [address] [place] [address] 6 month f/u per paper 06/03/2025 10:00 AM EST Nurse Only [facility] 30 [facility] [address] [place] [address] [email or web address] 01/19/2025- 2wk post op 07/01/2025 2:15 PM EST Office Visit [facility] [address] [place] [phone] Estefani Whipple, OD [address] [place] [address] 07/02/2025 1:40 PM EST Post Op [facility] [address] [place] [address] Brisa Pugh, [place] [address] [facility] [address] [place] [address] [email or web address] 01/19/2025- 6wk post op 07/29/2025 10:20 AM EST Office Visit [facility] [address] [place] [phone] Ciaran Mcgee, [address] [place] [address] [place] [address] 6 MO F/U 08/03/2025 1:15 PM EST Hospital Encounter [facility] 10 [place] [address] Martina Vincent MD 40 [place] [address] 08/03/2025 1:15 PM EST - 08/03/2025 4:45 PM EST Surgery [facility] 10 [place] [address] Martina Vincent MD 40 [place] [address] C3-7 laminoplast LAMINOPLASTY, CERVICAL, W/DECOMPRESSION OF SPINAL CORD, 2 OR MORE VERTEBRAL SEGMENTS; W/RECONSTRUCTION POSTERIOR BONY ELEMENTS 08/14/2025 9:20 AM EST Office Visit [facility] [address] [address] Namrata Pollock MD [address] [place] [address] Jaimee Arroyo NP [address] [address] return Scheduled Procedures Name Priority Associated Diagnoses [...] documented as of this encounter Care Teams Brake Linings Coater Relationship Specialty Start Date End Date Jennifer Landry MD [address] [place] [address] PCP - General Internal Medicine 09/20/23 Matthieu Hernandez MD [address] [place] [address] Consulting Provider Endocrinology 09/19/22 Florecita Hopson MD [address] [place] [address] Covering Provider Urogynecology 09/19/22 documented as of this encounter
--- OUTSIDE RECORDS SUMMARY | 2025-04-11 10:30 | XMS_ITS | Encounter Summary ---
Author Organization [facility] Address [address] [place] [address] Care Team Providers Care Juice Mixer Name Role Phone Matthieu Hernandez MD Unavailable [phone] Florecita Hopson MD Unavailable [phone] Jennifer Landry MD Primary Care Provider [phone] Encounter Details Date Type Department Care Team (Late st Contact Info) Description 03/11/2025 Results Follow-Up [facility] 30 [facility] [address] [place] [address] Margarita Ramos MD [address] [facility] [address] [place] [address] Message about your results Social History Tobacco Use Types Packs/Day Years Used Date Smoking Tobacco: Never Passive Smoke Exposure: Never Smokeless Tobacco: Never Comments:Exposed to second h and smoke in childhood home. Alcohol Use Standard Drinks/Week Comments Yes 2 (1 standard drink = 0.6 oz pur e alcohol) Socially Overall Financial Resource Strain (CARDIA) Answe r Date Recorded How hard is it for you to pa y for the very basics like food, housing, medical care, and heating? Not hard at all 01/02/2025 PHQ-2 Answer Date Recorded Patient Health Questionnaire-2 Score 0 12/29/2024 Hunger Vital Sign Answer Date Recorded Within the past 12 months, y ou worried that your food would run out before you got the money to buy more. Never true 02/03/20 25 Within the past 12 months, t he food you bought just didn't last and you didn't have money to get more. Never true 02/02/2025 PRAPARE - Transportation Answer Date Re corded In the past 12 months, has l ack of transportation kept you from medical appointments or from getting medications? No 01/20 In the past 12 months, has l ack of transportation kept you from meetings, work, or from getting things needed for daily living? No 02/02/2025 PHQ-9 Answer Date Recorded (OBSOLETE) PHQ-9 Total Score= 3 Housing Stability Vital Sign Answer Rodolfo e Recorded In the last 12 months, was t here a time when you were not able to pay the mortgage or rent on time? No 01/02/2025 Number of Times Moved in the Last Year Not on fi le 01/02/2025 At any time in the past 12 m [facility], were you homeless or living in a care home (including now)? No 01/02/2025 [facility] Utilities Answer Date Recorded In the past 12 months has th e electric, gas, oil, or water company threatened to shut off services in your home? No 01/02/2025 Interpersonal Safety Answer Date Record ed Is Anyone Hurting/Threatening You or Making You Feel Afraid? No 02/02/2025 Is Anyone Hurting/Threatening You or Making You Feel Afraid? No 02/02/2025 Comments No Sex and Gender Information Value Date Recorded Sex Assigned at Female 02/13/2022 9:35 AM EDT Legal Sex Female 12:45 PM EST Gender Identity Female 02/13/2022 9:35 AM EDT Sexual Orientation Straight 02/13/2022 9: 35 AM EDT Travel History Travel Start Travel End [facility] 03/23/2025 04/06/2025 documented as of this encounter Plan of Treatment Upcoming Encounters Date Type Department Care Team (Late st Contact Info) Description 04/13/2025 8:00 AM EDT Office Visit [facility] [address] [place] [address] Lucita Méndez, OD [address] [place] [address] 04/14/2025 8:20 AM EDT [facility] [address] [facility] [address] [place] [phone] Kerry Zaragoza MD [address] [facility] [address] [place] [address] Follow up 04/22/2025 10:00 AM EDT Initial consult [facility] Hematology 40 [facility] 1[address] [place] [phone] Cristal Cabrera MD 40 [place] [address] 289.89 (ICD-9-CM) - D75.89 (ICD-10-CM) - Macrocytosis without anemia 05/08/2025 3:30 PM EDT Office Visit [facility] 2nd Floor [address] [place] [address] 210 [place] [address] Lizbeth Fuller MD [address] [facility] [address] [place] [address] Marcie Macario MD 40 [place] [address] ACV visit today - schedule follow-up any provider 3-6 months for hair loss 05/11/2025 1:15 PM EDT Office Visit [facility] [address] [place] [address] Otis Bay MD 4[address] [facility] [address] [place] [address] 6 month f/u per paper 06/03/2025 10:00 AM EST Nurse Only [facility] 30 [facility] [address] [place] [address] [email or web address] 01/19/2025- 2wk post op 07/01/2025 2:15 PM EST Office Visit [facility] [address] [place] [address] Estefani Whipple, OD [address] [place] [address] 07/02/2025 1:40 PM EST Post Op [facility] Arrkeisha [address] [place] [address] Brisa Pugh, [place] [address] [facility] [address] [place] [address] [email or web address] 01/19/2025- 6wk post op 07/29/2025 10:20 AM EST Office Visit [facility] [address] [place] [address] [place] [phone] Ciaran Mcgee, [address] [place] [address] [place] [address] 6 MO F/U 08/03/2025 1:15 PM EST Hospital Encounter [facility] 10 [place] [address] Martina Vincent MD 40 [place] [address] 08/03/2025 1:15 PM EST - 08/03/2025 4:45 PM EST Surgery [facility] 10 [place] [phone] Martina Vincent MD 40 [place] [address] C3-7 laminoplast LAMINOPLASTY, CERVICAL, W/DECOMPRESSION OF SPINAL CORD, 2 OR MORE VERTEBRAL SEGMENTS; W/RECONSTRUCTION POSTERIOR BONY ELEMENTS 08/14/2025 9:20 AM EST Office Visit [facility] [address] [phone] Namrata Pollock MD [address] [place] [address] Jaimee Arroyo, [place] [address] [address] return Scheduled Procedures Name Priority Associated Diagnoses Date/Ti me LAMINOPLASTY, CERVICAL, W/DECOMPRESSION OF SPINAL CORD, 2 OR MORE VERTEBRAL SEGMENTS; W/RECONSTRUCTION POSTERIOR BONY ELEMENTS Spondylosis, cervical, with myelopathy Cervical stenosis of spine 08/03/2025 1:15 PM EST documented as of this encounter Visit Diagnoses Not on filedocumented in this encounter Care Teams Juice Mixer Relationship Specialty Start Date End Date Jennifer Landry MD [address] [place] [address] PCP - General Internal Medicine 09/20/23 Matthieu Hernandez MD 30 [place] [address] Consulting Provider Endocrinology 09/19/22 Florecita Hopson MD [address] [address] Covering Provider Urogynecology 09/19/22 documented as of this encounter
--- OUTSIDE RECORDS SUMMARY | 2025-04-11 10:30 | XMS_ITS | Encounter Summary ---
Author Organization [facility] Address [address] [place] [address] Care Team Providers Care After School Coordinator Name Role Phone Jennifer Landry MD Primary Care Provider [phone] Matthieu Hernandez MD Unavailable [phone] Florecita Hopson MD Unavailable [phone] Jennifer Landry MD Primary Care Provider [phone] Encounter Details Date Type Department Care Team (Late st Contact Info) Description 11/10/2021 OnBase Documentation On File [address] [place] [address] Social History Tobacco Use Types Packs/Day Years Used Date Smoking Tobacco: Never Smokeless Tobacco: Never Alcohol Use Standard Drinks/Week Comments Yes 2 (1 standard drink = 0.6 oz pur e alcohol) Comments No Sex and Gender Information Value Date Recorded Sex Assigned at Female 02/13/2022 9:35 AM EDT Legal Sex Female 12:45 PM EST Gender Identity Female 02/13/2022 9:35 AM EDT Sexual Orientation Straight 02/13/2022 9: 35 AM EDT Travel History Travel Start Travel End [facility] 03/23/2025 04/06/2025 COVID-19 Exposure Response Date Recorded In the last 10 days, have yo u been in contact with someone who was confirmed or suspected to have Coronavirus/COVID-19? No / Unsure 11/01/2021 10:16 AM EDT documented as of this encounter Plan of Treatment Upcoming Encounters Date Type Department Care Team (Late st Contact Info) Description 04/13/2025 8:00 AM EDT Office Visit [facility] [address] [place] [address] Lucita Méndez, OD [address] [place] [address] 04/14/2025 8:20 AM EDT [facility] [address] [facility] [address] [place] [address] Kerry Zaragoza MD [address] [facility] [address] [place], [place] [address] Follow up 04/22/2025 10:00 AM EDT Initial consult [facility] Hematology 40 [facility] [address] [place] [address] Cristal Cabrera MD 40 [place] [address] 289.89 (ICD-9-CM) - D75.89 (ICD-10-CM) - Macrocytosis without anemia 05/08/2025 3:30 PM EDT Office Visit [facility] 2nd Floor [address] [place] [address] [address] [place] [address] Lizbeth Fuller MD [address] [facility] [address] [place] [address] Marcie Macario MD 40 [place] [address] ACV visit today - schedule follow-up any provider 3-6 months for hair loss 05/11/2025 1:15 PM EDT Office Visit [facility] [address] [place] [address] Otis Bay MD [address] [facility] [address] [place] [address] 6 month f/u per paper 06/03/2025 10:00 AM EST Nurse Only [facility] 30 [facility] [address] [place] [address] [email or web address] 01/19/2025- 2wk post op 07/01/2025 2:15 PM EST Office Visit [facility] [place] [address] [place] [address] Estefani Whipple, OD [address] [place] [address] 07/02/2025 1:40 PM EST Post Op [facility] [place] [address] Brisa Pugh, [place] [address] [facility] [address] [place] [address] [email or web address] 01/19/2025- 6wk post op 07/29/2025 10:20 AM EST Office Visit [address] [place] [phone] Ciaran Mcgee, DO [address] [place] [address] [place] [address] [place] F/U 08/03/2025 1:15 PM EST Hospital Encounter [facility] 10 [place] [address] Martina Vincent MD 40 [place] [address] 08/03/2025 1:15 PM EST - 08/03/2025 4:45 PM EST Surgery [facility] [address] [place] [address] Martina Vincent MD 40 [place] [address] C3-7 laminoplast LAMINOPLASTY, CERVICAL, W/DECOMPRESSION OF SPINAL CORD, 2 OR MORE VERTEBRAL SEGMENTS; W/RECONSTRUCTION POSTERIOR BONY ELEMENTS 08/14/2025 9:20 AM EST Office Visit [facility] [address] [address] Namrata Pollock MD [address] [place] [address] Jaimee Arroyo NP [address] [address] return Scheduled Procedures Name Priority Associated Diagnoses [...] documented as of this encounter Care Teams After School Coordinator Relationship Specialty Start Date End Date Jennifer Landry MD [address] [place] [address] PCP - General Internal Medicine 10/10/21 07/26/23 Jennifer Landry MD [address] [place] [address] PCP - General Internal Medicine 09/20/23 Matthieu Hernandez MD 30 [place] [address] Consulting Provider Endocrinology 09/19/22 Florecita Hopson MD [address] [address] Covering Provider Urogynecology 09/19/22 documented as of this encounter
--- OUTSIDE RECORDS SUMMARY | 2025-04-11 10:30 | XMS_ITS | Encounter Summary ---
Author Organization [facility] Address [address] [place] [address] Care Team Providers Care Installment Dealer Name Role Phone Jennifer Landry MD Primary Care Provider [phone] Matthieu Hernandez MD Unavailable [phone] Florecita Hopson MD Unavailable [phone] Jennifer Landry MD Primary Care Provider [phone] Encounter Details Date Type Department Care Team (Late st Contact Info) Description 01/11/2022 OnBase Documentation On File [address] [place] [address] Social History Tobacco Use Types [...] EDT Travel History Travel Start Travel End [facility] 03/23/2025 04/06/2025 COVID-19 Exposure Response Date Recorded In the last 10 days, have yo u been in contact with someone who was confirmed or suspected to have Coronavirus/COVID-19? No / Unsure 12/23/2021 1:48 PM EDT documented as of this encounter Plan of Treatment Upcoming Encounters Date Type Department Care Team (Late st Contact Info) Description 04/13/2025 8:00 AM EDT Office Visit [facility] [address] [place] [address] Lucita Méndez, OD [address] [place] [address] 04/14/2025 8:20 AM EDT [facility] [address] [facility] [address] [place] [address] Kerry Zaragoza MD [address] [facility] [address] [place], [place] [address] Follow up 04/22/2025 10:00 AM EDT Initial consult [facility] Hematology 40 [facility] 1E [place] [address] Cristal Cabrera MD 40 [place] [address] 289.89 (ICD-9-CM) - D75.89 (ICD-10-CM) - Macrocytosis without anemia 05/08/2025 3:30 PM EDT Office [facility] 2nd Floor [address] [place] [address] [address] [place] [address] Lizbeth Fuller MD [address] [facility] [address] [place] [address] Marcie Macario MD 40 [place] [address] ACV visit today - schedule follow-up any provider 3-6 months for hair loss 05/11/2025 1:15 PM EDT Office Visit [facility] [address] [place] [address] Otis Bay MD 4709 [facility] [address] [place] [address] 6 month f/u per paper 06/03/2025 10:00 AM EST Nurse Only [facility] 30 [facility] [address] [place] [address] [email or web address] 01/19/2025- 2wk post op 07/01/2025 2:15 PM EST Office Visit [facility] [place] [address] [place] [address] Estefani Whipple, OD [address] [place] [address] 07/02/2025 1:40 PM EST Post Op [facility] [address] [place] [address] Brisa Pugh, [place] 56[address] [facility] [address] [place] [address] [email or web address] 01/19/2025- 6wk post op 07/29/2025 10:20 AM EST Office Visit [address] [place] [phone] Ciaran Mcgee, DO [address] [place] [address] [place] [address] [place] F/U 08/03/2025 1:15 PM EST Hospital Encounter [facility] 10 [place] [address] Martina Vincent MD 40 [place] [address] 08/03/2025 1:15 PM EST - 08/03/2025 4:45 PM EST Surgery [facility] [place] [facility] 10 [place] [address] Martina Vincent MD 40 [place] [address] C3-7 laminoplast LAMINOPLASTY, CERVICAL, W/DECOMPRESSION OF SPINAL CORD, 2 OR MORE VERTEBRAL SEGMENTS; W/RECONSTRUCTION POSTERIOR BONY ELEMENTS 08/14/2025 9:20 AM EST Office Visit [facility] [address] [address] Namrata Pollock MD [address]20 [place] [address] Jaimee Arroyo NP [address] [address] return Scheduled Procedures Name Priority Associated Diagnoses [...] documented as of this encounter Care Teams Installment Dealer Relationship Specialty Start Date End Date Jennifer Landry MD [address] [place] [address] PCP - General Internal Medicine 10/10/21 07/26/23 Jennifer Landry MD [address] [place] [address] PCP - General Internal Medicine 09/20/23 Matthieu Hernandez MD 30 [place] [address] Consulting Provider Endocrinology 09/19/22 Florecita Hopson MD [address] [address] Covering Provider Urogynecology 09/19/22 documented as of this encounter
--- OUTSIDE RECORDS SUMMARY | 2025-04-11 10:30 | XMS_ITS | Encounter Summary ---
Author Organization [facility] Address [address] [place] [address] Care Team Providers Care Cold Type Composing Machine Operator Name Role Phone Matthieu Hernandez MD Unavailable [phone] Florecita Hopson MD Unavailable [phone] Jennifer Landry MD Primary Care Provider [phone] Encounter Details Date Type Department Care Team (Late st Contact Info) Description 09/24/2023 OnBase Documentation On File [address] [place] [address] Social History Tobacco Use Types Packs/Day Years [...] EDT Travel History Travel Start Travel End [facility] 03/23/2025 04/06/2025 documented as of this encounter Plan of Treatment Upcoming Encounters Date Type Department Care Team (Late st Contact Info) Description 04/13/2025 8:00 AM EDT Office Visit [facility] [address] [place] [address] Lucita Méndez, OD [address] [place] [address] 04/14/2025 8:20 AM EDT [facility] [address] [facility] [address] [place] [address] Kerry Zaragoza MD [address] [facility] [address] [place], [place] [address] Follow up 04/22/2025 10:00 AM EDT Initial consult [facility] Hematology 40 [facility] 1E [place] [address] Cristal Cabrera MD 40 [place] [address] 289.89 (ICD-9-CM) - D75.89 (ICD-10-CM) - Macrocytosis without anemia 05/08/2025 3:30 PM EDT Office [facility] 2nd Floor [address] [place] [address] Lizbeth Fuller MD 77 [facility] [address] [place] [address] Marcie Macario MD 40 [place] [address] ACV visit today - schedule follow-up any provider 3-6 months for hair loss 05/11/2025 1:15 PM EDT Office Visit [facility] [place] [address] [place] [address] Otis Bay MD 4[address] [employer] [address] [place] [address] 6 month f/u per paper 06/03/2025 10:00 AM EST Nurse Only [facility] 30 [facility] [address]B [address] [place] [address] [email or web address] 01/19/2025- 2wk post op 07/01/2025 2:15 PM EST Office Visit [facility] [place] [address] [place] [address] Estefani Whipple, OD [address] [place] [address] 07/02/2025 1:40 PM EST Post Op [facility] [address] [place] [address] Brisa Pugh, [place] 56[address] [facility] [address] [place] [address] [email or web address] 01/19/2025- 6wk post op 07/29/2025 10:20 AM EST Office Visit [address] [place] [phone] Ciaran Mcgee, [address] [place] [address] [place] [address] 6 [place] F/U 08/03/2025 1:15 PM EST Hospital Encounter [facility] 10 [place] [address] Martina Vincent MD 40 [place] [address] 08/03/2025 1:15 PM EST - 08/03/2025 4:45 PM EST Surgery [facility] 10 [place] [address] Martina Vincent MD 40 [place] [address] C3-7 laminoplast LAMINOPLASTY, CERVICAL, W/DECOMPRESSION OF SPINAL CORD, 2 OR MORE VERTEBRAL SEGMENTS; W/RECONSTRUCTION POSTERIOR BONY ELEMENTS 08/14/2025 9:20 AM EST Office Visit [facility] [address] [address] Namrata Pollock MD 4220 [place] [address] Jaimee Arroyo NP [address] [address] return Scheduled Procedures Name Priority Associated Diagnoses [...] documented as of this encounter Care Teams Cold Type Composing Machine Operator Relationship Specialty Start Date End Date Jennifer Landry MD [address] [place] [address] PCP - General Internal Medicine 09/20/23 Matthieu Hernandez MD 30 [place] [address] Consulting Provider Endocrinology 09/19/22 Florecita Hopson MD [address] [place] [address] Covering Provider Urogynecology 09/19/22 documented as of this encounter
--- OUTSIDE RECORDS SUMMARY | 2025-04-11 10:30 | XMS_ITS | Encounter Summary ---
Author Organization [facility] Address [address] [place] [address] Care Team Providers Care Fighter Pilot Name Role Phone Jennifer Landry MD Primary Care Provider [phone] Matthieu Hernandez MD Unavailable [phone] Florecita Hopson MD Unavailable [phone] Jennifer Landry MD Primary Care Provider [phone] Encounter Details Date Type Department Care Team (Late st Contact Info) Description 08/01/2022 OnBase Orders Only On File [address] [place] [address] Social History Tobacco Use Types [...] EDT Travel History Travel Start Travel End [facility] 03/23/2025 04/06/2025 COVID-19 Exposure Response Date Recorded In the last 10 days, have yo u been in contact with someone who was confirmed or suspected to have Coronavirus/COVID-19? No / Unsure 08/04/2022 12:14 PM EST documented as of this encounter Plan of Treatment Upcoming Encounters Date Type Department Care Team (Late st Contact Info) Description 04/13/2025 8:00 AM EDT Office Visit [facility] [address] [place] [address] Lucita Méndez, OD [address] [place] [address] 04/14/2025 8:20 AM EDT [facility] [address] [facility] [address] [place] [address] Kerry Zaragoza MD [address] [facility] [address] [place], [place] [address] Follow up 04/22/2025 10:00 AM EDT Initial consult [facility] Hematology 40 [facility] 1E [place] [address] Cristal Cabrera MD 40 [place] [address] 289.89 (ICD-9-CM) - D75.89 (ICD-10-CM) - Macrocytosis without anemia 05/08/2025 3:30 PM EDT Office Visit [facility] 2nd Floor [address] [place] [address] [address] [place] [address] Lizbeth Fuller MD [address] [place] [address] Marcie Macario MD 40 [place] [address] ACV visit today - schedule follow-up any provider 3-6 months for hair loss 05/11/2025 1:15 PM EDT Office Visit [facility] [address] [place] [address] Otis Bay MD 4709 [facility] [address] [place] [address] 6 month f/u per paper 06/03/2025 10:00 AM EST Nurse Only [facility] 30 [facility] [address]B [address] [place] [address] [email or web address] 01/19/2025- 2wk post op 07/01/2025 2:15 PM EST Office Visit [facility] [address] [place] [address] Estefani Whipple, OD [address] [place] [address] 07/02/2025 1:40 PM EST Post Op [facility] [address] [place] [address] Brisa Pugh, [place] 5601 [facility] [address] [place] [address] [email or web address] 01/19/2025- 6wk post op 07/29/2025 10:20 AM EST Office Visit [address] [place] [phone] Ciaran Mcgee, DO [address] [place] [address] [place] [address] MO F/U 08/03/2025 1:15 PM EST Hospital Encounter [facility] [place] [facility] 10 [place] [address] Martina Vincent MD 40 [place] [address] 08/03/2025 1:15 PM EST - 08/03/2025 4:45 PM EST Surgery [facility] 10 [place] [address] Martina Vincent MD 40 [place] [address] C3-7 laminoplast LAMINOPLASTY, CERVICAL, W/DECOMPRESSION OF SPINAL CORD, 2 OR MORE VERTEBRAL SEGMENTS; W/RECONSTRUCTION POSTERIOR BONY ELEMENTS 08/14/2025 9:20 AM EST Office Visit [facility] [address] [address] Namrata Pollock MD [address]20 [place] [address] Jaimee Arroyo NP [address] [address] return Scheduled Procedures Name Priority Associated Diagnoses Date/Ti me LAMINOPLASTY, CERVICAL, W/DECOMPRESSION OF SPINAL CORD, 2 OR MORE VERTEBRAL SEGMENTS; W/RECONSTRUCTION POSTERIOR BONY ELEMENTS Spondylosis, cervical, with myelopathy Cervical stenosis of spine 08/03/2025 1:15 PM EST documented as of this encounter Procedures Procedure Name Priority Date/Time Associated Diagnosis Comments ECG 08/01/2022 12:00 AM EST documented in this encounter Results * ECG (08/01/2022 12:00 AM EST) Narrative 08/01/2022 12:00 AM EST Ordered by an unspecified provider. us On-File Provider ECG ORDERABLES Final Result documented in this encounter Visit Diagnoses Not on filedocumented in this encounter Additional Health Concerns Infection Onset Date Last Indicated Resolved Time Rule Out Respiratory Virus 07/09/2024 07/09/2024 1 09/10/2023 11:37 AM EST Influenza 09/03/2024 09/03/2024 09/13/2024 1:30 AM EST documented as of this encounter Care Teams Fighter Pilot Relationship Specialty Start Date End Date Jennifer Landry MD [address] [place] [address] PCP - General Internal Medicine 10/10/21 07/26/23 Jennifer Landry MD [address] [place] [address] PCP - General Internal Medicine 09/20/23 Matthieu Hernandez MD 30 [place] [address] Consulting Provider Endocrinology 09/19/22 Florecita Hopson MD [address] [address] Covering Provider Urogynecology 09/19/22 documented as of this encounter
--- OUTSIDE RECORDS SUMMARY | 2025-04-11 10:30 | XMS_ITS | Patient Health Record ---
Author Organization [facility] MD Address [address] [place], [place] [address] Care Team Providers Care Administrative Operations Coordinator Name Role Phone Audramindi Kelsi Primary Care Provider Marlen Rizzo Unavailable [phone] Shaniqua Jordan MD Unavailable Allergies Allergen (clinical drug ingredient) Drug/Non Drug Allergy documented on EMR Reaction Allergy Type Onset Date Status environmental (uncoded) Unknown Allergy Active amoxicillin Amoxicillin Unknown Drug Allergy Act mihir ampicillin Ampicillin Unknown Drug Allergy Activ e cefadroxil Cefadroxil Unknown Drug Allergy Activ e clarithromycin Clarithromycin Unknown Drug Allergy Active raloxifene Evista Unknown Drug Allergy Active Levaquin Unknown Drug Allergy Active nystatin Nystatin Unknown Drug Allergy Active penicillamine Penicillamine Unknown Drug Allergy Active triamcinolone Triamcinolone Acetonide Unknown Drug Allergy Active Reason For Referral No Information Medications Medication SIG (Take, Route, Frequency, Duration) Notes Start Date End Date Status Xopenex HFA Active Vyvanse Active Estrace Active Lidocaine Active Maxalt-CHISEL TRIMMER Active Acyclovir Active Mometasone Furoate A ctive Brimonidine Tartrate Active Claritin-D 24 Hour A ctive Cartia XT Active Prevacid 24HR Active Hyoscyamine Sulfate Active Multivitamin + DHA Active hydroCHLOROthiazide Active HYDROcodone-Acetaminophen 5- 325 MG 1 tablet as needed for pain, no driving Orally every 6 hrs 07/12/2020 Active Plavix Active Social History Tobacco Use: Social History Observation Description Date Details (start date - stop date) Never Smoker NA - NA Tobacco Question Answer Notes Smoking Status Never Problems Problem Type SNOMED Code ICD Code Onset Dates Problem Status W/U Status Risk Notes Problem Rotator cuff (capsule) sprain and strain (840.4) Active confirmed Problem Shoulder joint pain (324985028) Pain in joint, shoulder region (719.41) Active confirmed Problem Osteoarthritis of knee (305864534) Bilateral primary osteoarthritis of knee (M17.0) Active confirmed Problem Osteoarthritis of knee (653127247) Unilateral primary osteoarthritis, left knee (M17.12) Active confirmed Problem Acute tear of medial meniscus of left knee (6196291001380589 7) Complex tear of medial meniscus, current injury, left knee, subsequent encounter (S83.232D) Active confirmed Plan Of Treatment Pending Test Test Name Order Date Injection Major Joint 04/23/2012 Injection Major Joint 11/24/2015 Insurance Providers Payer Name Payer Address Payer Phone Subscriber Number Group Number Insured Name Patient Relationship to Insured Coverage Start Date Coverage End Date [facility] [address] [place] [address] [id number] [place] Self - patient is the insured Medical (General) History Medical History History ICD Code asthma osteopenia / osteoporosis a- fib, tachycardia ablation 06/2013 hyperparathyroidism, 2 adenomas removed on 2 separate occasions carpal tunnel R wrist Surgical History Surgery Date(Month/Year) R Knee Scope 1976 Nasal SX 1986 Repair Annual fissure and hemorrhoids 19 91 Sinus SX 08/28/08 B eyes 1964 tonsillectomy R knee 2 Sx 2 nasal Sx cardiac ablation for a - fib cardiac event monitor removed Hospitalization History Reason Date(Month/Year) Unknown Infection 1998
--- OUTSIDE RECORDS SUMMARY | 2025-04-11 10:30 | XMS_ITS | Encounter Summary ---
Author Organization [facility] Address [address] [place] [address] Care Team Providers Care Carpenter Packing Name Role Phone Jennifer Landry MD Primary Care Provider [phone] Matthieu Hernandez MD Unavailable [phone] Florecita Hopson MD Unavailable [phone] Jennifer Landry MD Primary Care Provider [phone] Encounter Details Date Type Department Care Team (Late st Contact Info) Description 04/19/2009 OnBase Orders Only On File [address] [place] [address] Social History Tobacco Use Types Packs/Day Years Used Date Smoking Tobacco: Never Assessed Comments Unknown Sex and Gender Information Value Date Recorded Sex Assigned at Female 02/13/2022 9:35 AM EDT Legal Sex Female 12:45 PM EST Gender Identity Female 02/13/2022 9:35 AM EDT Sexual Orientation Straight 02/13/2022 9: 35 AM EDT Travel History Travel Start Travel End [facility] 03/23/2025 04/06/2025 documented as of this encounter Plan of Treatment Upcoming Encounters Date Type Department Care Team (Late st Contact Info) Description 04/13/2025 8:00 AM EDT Office Visit [facility] [address] [place] [address] Lucita Méndez, OD [address] [place] [address] 04/14/2025 8:20 AM EDT [facility] [address] [facility] [address] [place] [phone] Kerry Zaragoza MD [address] [facility] [address] [place] [address] Follow up 04/22/2025 10:00 AM EDT Initial consult [facility] [address] [facility] [address] [place] [phone] Cristal Cabrera MD [address] [place] [address] [phone] (ICD-9-CM) - D75.89 (ICD-10-CM) - Macrocytosis without anemia 05/08/2025 3:30 PM EDT Office Visit [facility] 2nd Floor [address] [facility] [address] [place] [address] Lizbeth Fuller MD [address] [place] [address] Marcie Macario MD [address] [place] [address] ACV visit today - schedule follow-up any provider 3-6 months for hair loss 05/11/2025 1:15 PM EDT Office Visit [facility] [address] [place] [phone] Otis Bay MD [address] [facility] [address] [place] [address] 6 month f/u per paper 06/03/2025 10:00 AM EST Nurse Only [facility] [address] [facility] [address] [place] [id number] [email or web address] 01/19/2025- 2wk post op 07/01/2025 2:15 PM EST Office Visit [facility] [place] [address] [place] [address] Estefani Whipple, OD [address] [place] [address] 07/02/2025 1:40 PM EST Post Op [facility] [address] [place] [address] Brisa Pugh, [place] [address] [facility] [address] [place] [address] [email or web address] 01/19/2025- 6wk post op 07/29/2025 10:20 AM EST Office Visit [facility] [address] [place] [address] [place] [phone] Ciaran Mcgee, [address] [place] [address] [place] [id number] MO F/U 08/03/2025 1:15 PM EST Hospital Encounter [facility] [address] [place] [address] Martina Vincent MD [address] [place] [address] 08/03/2025 1:15 PM EST - 08/03/2025 4:45 PM EST Surgery [facility] [address] [place] [phone] Martina Vincent MD [address] [place] [address] C3-7 laminoplast LAMINOPLASTY, CERVICAL, W/DECOMPRESSION OF SPINAL CORD, 2 OR MORE VERTEBRAL SEGMENTS; W/RECONSTRUCTION POSTERIOR BONY ELEMENTS 08/14/2025 9:20 AM EST Office Visit [facility] [address] [phone] Namrata Pollock MD [address] [place] [address] Jaimee Arroyo NP [address] [address] return Scheduled Procedures Name Priority Associated Diagnoses Date/Ti me LAMINOPLASTY, CERVICAL, W/DECOMPRESSION OF SPINAL CORD, 2 OR MORE VERTEBRAL SEGMENTS; W/RECONSTRUCTION POSTERIOR BONY ELEMENTS Spondylosis, cervical, with myelopathy Cervical stenosis of spine 08/03/2025 1:15 PM EST documented as of this encounter Procedures Procedure Name Priority Date/Time Associated Diagnosis Comments LAB RESULT EXTERNAL 04/19/2009 1 2:00 AM EDT documented in this encounter Results * LAB RESULT EXTERNAL (04/19/2009 12:00 AM EDT) Narrative 04/19/2009 12:00 AM EDT Ordered by an unspecified [...] documented as of this encounter Care Teams Carpenter Packing Relationship Specialty Start Date End Date Jennifer Landry MD [address] [place] [id number] PCP - General Internal Medicine 10/10/21 07/26/23 Jennifer Landry MD [address] [place] [address] PCP - General Internal Medicine 09/20/23 Matthieu Hernandez MD [address] [place] [address] Consulting Provider Endocrinology 09/19/22 Florecita Hopson MD [address] [address] Covering Provider Urogynecology 09/19/22 documented as of this encounter
--- OUTSIDE RECORDS SUMMARY | 2025-04-11 10:30 | XMS_ITS | Clinical Summary ---
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 Sna Implanted:Qty: 1 on 10/24/2023 by Otis Bay MD at [facility] Right: Foot [employer] AT2-C30 / NA / NA Procedures Procedure Name Priority Date/Time Associated Diagnosis Comments MAMMO SCREEN BREAST WITH TOMOSYNTHESIS BILATERAL 3-Outpatient Routine 03/19/2025 10:49 AM EDT Encounter for screening mammogram for malignant neoplasm of breast PULMONARY FUNCTION TEST 02/20/2025 7:14 AM EDT PULMONARY FUNCTION TEST Routine 02/20/2025 7:14 AM EDT PATHOLOGY - GENERAL / OTHER Routine 02/17/2025 8:58 AM EDT History of adenomatous polyp of colon ID COLSC FLX W/RMVL OF TUMOR POLYP LESION SNARE TQ 02/17/2025 8:33 AM EDT History of adenomatous polyp of colon COLONOSCOPY 02/17/2025 8:06 AM EDT DXA BONE DENSITY 3-Outpatient Routine 02/09/2025 10:52 AM EDT Hyperparathyroidism, primary ([facility]) US SOFT TISSUE HEAD AND NECK 3-Outpatient Routine 02/07/2025 1:37 PM EDT Multiple thyroid nodules ECHOCARDIOGRAM 2D COMPLETE Routine 01/29/2025 8:58 AM EDT PAF (paroxysmal atrial fibrillation) ([facility]) MICROALBUMIN/CREATI NINE RATIO, RANDOM URINE Routine 12/31/2024 12:00 PM EDT Renal insufficiency COMPREHENSIVE METABOLIC PANEL (CMP) Routine 12/31/2024 12:00 PM EDT Renal insufficiency LIPID PANEL W/REFLEX DIRECT LOW DENSITY LIPOPROTEIN (LDL) CHOLESTEROL Routine 03/31/2024 8:08 AM EDT Pure hypercholesterolemia HEPATITIS C ANTIBODY Routine 10/19/2022 9:33 AM EDT Need for hepatitis C screening test from Last 3 Months or Most Recently Relevant to Health Maintenance Results * Mammo screening breast tomosynthesis bilateral (03/19/2025 10:49 AM EDT) Anatomical Region Laterality Modality Breast Bilateral, Breast Left, Breast Right Bila teral Mammography 03/19/2025 Impressions 03/20/2025 1:20 PM EDT No mammographic evidence of malignancy. Recommend routine mammography screening in one year. BI-RADS: 1 - Negative [address] [address] Narrative 03/20/2025 1:20 PM EDT EXAM: MAMMO SCREEN BREAST WITH TOMOSYNTHESIS BILATERAL 03/19/2025 10:30 AM INDICATION: Screening COMPARISON: Compared to: 03/25/2024 Mammo diagnostic breast tomosynthesis right, 03/17/2024 Mammo screening breast tomosynthesis bilateral, 03/08/2023 Mammo screening breast tomosynthesis bilateral, 03/20/2022 Mammo diagnostic breast tomosynthesis left, and 01/24/2022 Mammo screening breast tomosynthesis bilateral TECHNIQUE: Tomosynthesis images were obtained as part of this exam. FINDINGS: The breasts are heterogeneously dense, which may obscure small masses. There are no suspicious masses, calcifications, or other findings in either breast. Jennifer Landry MD IM MAMMOGRAPHY ORDERABLE S Final Result * Pulmonary Function Test (02/20/2025 7:14 AM EDT) Narrative 02/20/2025 7:14 AM EDT Ordered by an unspecified provider. On-File Provider PFT ORDERABLES Final Result * Pulmonary Function Test (02/20/2025 7:14 AM EDT) FVC Pre 3.56 L [facility] PFTIS5 AAAC FEV1 Pre 2.32 L [facility] PFTIS5 AAAC FEV1/FVC Pre 65.15 % CAREFUS ION PFTIS5 AAAC ZCP38-05% Pre 1.17 L/s CAREFU PAIGE PFTIS5 AAAC PEF Pre 6.71 L/s [facility] PFTIS5 AAAC FEV1/SVC Pre 65.15 % [facility]ARE[facility] ION PFTIS5 AAAC DLCO Pre 16.20 ml/(min*mm Hg) [facility] PFTIS5 AAAC VA Pre 5.59 L [facility] PFTIS5 AAAC IVC Pre 3.42 L [facility] PFTIS5 AAAC BHT Pre 9.90 sec [facility] PFTIS5 AAAC KCO_PRE 2.90 ml/(min*mm Hg*L) [facility] PFTIS5 AAAC VCMAX_PL_PRE 3.56 L CAREFUS ION PFTIS5 AAAC ERV Pre 0.79 L [facility] PFTIS5 AAAC TLC Pre 6.39 L [facility] PFTIS5 AAAC RV Pre 2.83 L [facility] PFTIS5 AAAC FRC PL Pre 3.61 L CAREFUSIO N PFTIS5 AAAC IC Pre 2.78 L [facility] PFTIS5 AAAC RV_PL/TLC_PL_P RE 44.23 % [facility] PFTIS5 AAAC FVC_LLN 2.23 [facility] PFTIS5 AAAC FVC_Z-SCORE 0.75 CAREFUSI ON PFTIS5 AAAC FVC_%PRED 113 % % [facility] PFTIS5 AAAC FVC_Z-SCOREGRA PH 0.75 [facility] PFTIS5 AAAC FEV1_LLN 1.70 [facility] PFTIS5 AAAC FEV1_Z-SCORE -0.25 CAREFUS ION PFTIS5 AAAC FEV1_%PRED 96 % % CAREFUSIO N PFTIS5 AAAC FEV1_Z-SCOREGR APH -0.25 [facility] PFTIS5 AAAC FEV1/FVC_LLN 66 CAREFUS ION PFTIS5 AAAC YIR51-03%_LLN 0.91 CAREFU PAIGE PFTIS5 AAAC HWT17-37%_Z-SC ORE -1.16 [facility] PFTIS5 AAAC NDT61-20%_%PRE D 60 % % [facility] PFTIS5 AAAC EPE33-88%_Z-SC OREGRAPH -1.16 [facility] PFTIS5 AAAC PEF_LLN 4.73 [facility] PFTIS5 AAAC PEF_Z-SCORE 0.55 CAREFUSI ON PFTIS5 AAAC PEF_%PRED 108 % % [facility] PFTIS5 AAAC PEF_Z-SCOREGRA PH 0.55 [facility] PFTIS5 AAAC FEV1%VCMAX_LLN 66 CAREF USION PFTIS5 AAAC TLC_LLN 4.41 [facility] PFTIS5 AAAC TLC_ULN 6.81 [facility] PFTIS5 AAAC TLC_Z-SCORE 1.12 CAREFUSI ON PFTIS5 AAAC TLC_%PRED 115 % [facility] PFTIS5 AAAC TLC_Z-SCOREGRA PH 1.12 [facility] PFTIS5 AAAC VCMAX_PL_LLN 2.63 CAREFUS ION PFTIS5 AAAC VCMAX_PL_ULN 4.11 CAREFUS ION PFTIS5 AAAC VCMAX_PL_Z-SCO RE 0.42 [facility] PFTIS5 AAAC VCMAX_PL_%PRED 106 % CAREF USION PFTIS5 AAAC VCMAX_PL_Z-SCO REGRAPH 0.42 [facility] PFTIS5 AAAC RV_LLN 1.28 [facility] PFTIS5 AAAC RV_ULN 3.23 [facility] PFTIS5 AAAC RV_Z-SCORE 1.09 CAREFUSIO N PFTIS5 AAAC RV_%PRED 133 % [facility] PFTIS5 AAAC RV_Z-SCOREGRAP H 1.09 [facility] PFTIS5 AAAC FRCPLETH_LLN 2.22 CAREFUS ION PFTIS5 AAAC FRCPLETH_ULN 4.25 CAREFUS ION PFTIS5 AAAC FRCPLETH_Z-SCO RE 0.76 [facility] PFTIS5 AAAC FRCPLETH_%PRED 116 % CAREF USION PFTIS5 AAAC FRCPLETH_Z-SCO REGRAPH 0.76 [facility] PFTIS5 AAAC ERV_LLN 0.24 [facility] PFTIS5 AAAC ERV_%PRED 94 % [facility] PFTIS5 AAAC IC_LLN 1.66 [facility] PFTIS5 AAAC IC_%PRED 112 % [facility] PFTIS5 AAAC RV_PL/TLC_PL_L LN 26 [facility] PFTIS5 AAAC RV_PL/TLC_PL_U LN 51 C[facility] PFTIS5 AAAC RV_PL/TLC_PL_Z -SCORE 0.80 [facility] PFTIS5 AAAC RV_PL/TLC_PL_% PRED 116 % [facility] PFTIS5 AAAC RV_PL/TLC_PL_Z -SCOREGRAPH 1 [facility] PFTIS5 AAAC DLCOSINGLEBREA TH_PREDICTED 20.55 [facility] PFTIS5 AAAC DLCOSINGLEBREA TH_LLN 15.51 [facility] PFTIS5 AAAC DLCOSINGLEBREA TH_Z-SCORE -1.40 [facility] PFTIS5 AAAC DLCOSINGLEBREA TH_%PRED 78.8 % [facility] PFTIS5 AAAC DLCOSINGLEBREA TH_Z-SCOREGRAP H -1.40 [facility] PFTIS5 AAAC VASINGLEBREATH _LLN 4.05 [facility] PFTIS5 AAAC VASINGLEBREATH _Z-SCORE 0.81 [facility] PFTIS5 AAAC VASINGLEBREATH _%PRED 110.5 % [facility] PFTIS5 AAAC VASINGLEBREATH _Z-SCOREGRAPH 0.81 [facility] PFTIS5 AAAC IVCSINGLEBREAT H_LLN 2.63 [facility] PFTIS5 AAAC IVCSINGLEBREAT H_Z-SCORE 0.10 [facility] PFTIS5 AAAC IVCSINGLEBREAT H_%PRED 101.3 % [facility] PFTIS5 AAAC IVCSINGLEBREAT H_Z-SCOREGRAPH 0.10 [facility] PFTIS5 AAAC KCO_LLN 3.08 [facility] PFTIS5 AAAC KCO_Z-SCORE -2.00 CAREFUSI ON PFTIS5 AAAC KCO_%PRE 71.8 % [facility] PFTIS5 AAAC KCO_Z-SCOREGRA PH -2.00 [facility] PFTIS5 AAAC FVC_FVCL 8.1 [facility] PFTIS5 AAAC FEV1_FEV1L 17.0 CAREFUSIO N PFTIS5 AAAC DLCOSINGLEBREA TH_DLCO_SBML 0.9 [facility] PFTIS5 AAAC FRCPLETH_FRCPL L -40.6 [facility] PFTIS5 AAAC TLC_TLCL -24.9 [facility] PFTIS5 AAAC RV_RVL -45.8 [facility] PFTIS5 AAAC 02/20/2025 7:14 AM EDT us On File Provider PFT ORDERABLES Final Result [facility] PFTIS5 AAAC * Pathology - General / Other (02/17/2025 8:58 AM EDT) Case Report Surgical Pathology Case: [id number] Authorizing Provider: Maryam Duran Collected: 02/17/2025 08Renetta Wong MD Ordering Location: [facility] Received: 02/17/2025 1215 Endo Bronch Pathologist: Ramon Valencia MD Specimen: Colon Polyp 3:38 PM EDT [facility] SURGICAL PATHOLOGY AND CYTOPATHOLOGY DIAGNOSIS A. Colon polyp, endoscopic biopsy: Tubular adenoma and colonic mucosa with hyperplastic polyp and benign lymphoid aggregate. No high grade dysplasia or carcinoma is seen. 3:38 PM EDT [facility] SURGICAL PATHOLOGY AND CYTOPATHOLOGY at 1538 EDT Clinical Information History of adenomatous polyp of colon 3:38 PM EDT [facility] SURGICAL PATHOLOGY AND CYTOPATHOLOGY Gross Examination A. Colon polyp, in formalin. Two fragments up to 1.3 cm in greatest dimension are inked, sectioned and submitted entirely in A1 and A2, one per block. NW 3:38 PM EDT [facility] SURGICAL PATHOLOGY AND CYTOPATHOLOGY Microscopic Examination Microscopic examination is performed. 3:38 PM EDT [facility] SURGICAL PATHOLOGY AND CYTOPATHOLOGY Additional Documentation All immunohistochemis try, in situ hybridization tests and special stains performed at [facility] and reported herein were developed, validated and their performance characteristics determined by the [facility]. During the performance of these tests, appropriate positive and negative control slides are also performed and reviewed. All control slides and internal controls (when applicable) demonstrate the expected immunoreactive patterns and/or nucleic acid hybridization. These ancillary studies were deemed medically necessary by the requesting pathologist. They were ordered following review of the H&E and clinical history except when part of a liver/kidney protocol or where clinical history (e.g. immunocompromised , critically ill, history of malignancy) clearly indicates. Some of the tests may not be cleared or approved by the U.S. Food and Drug Administration (FDA). The FDA has determined that such clearance or approval is not necessary. These tests are used for clinical purposes and should not be regarded as investigational or as research. This laboratory is certified under the Clinical Laboratory Improvement Amendments of 1988 (CLIA) as qualified to perform high complexity clinical testing. 3:38 PM EDT [facility] SURGICAL PATHOLOGY AND CYTOPATHOLOGY Attestation All of the diagnostic evaluations on the enumerated specimens have been personally conducted by the pathologists involved in the care of this patient as indicated by the electronic signatures above. 3:38 PM EDT [facility] SURGICAL PATHOLOGY AND CYTOPATHOLOGY Tissue-Pathology (Colon Polyp) 02/17/2025 8:58 AM EDT 02/17/2025 12:15 PM EDT Maryam Duran MD PATHOLOGY ORDER JOHN Final Result [facility] SURGICAL PATHOLOGY AND CYTOPATHOLOGY [address] [place] [address] * Colonoscopy (02/17/2025 8:06 AM EDT) Molly CAMPOS GI PROCEDURE ORDERABLES Final Result * DXA bone density (02/09/2025 10:52 AM EDT) Patient Height 66.2 in [facility] Patient Weight 148.2 lb [facility] Patient Age 69 yr [facility] Patient Ethnicity White [facility] Spine Scan Type x Lumbar Spine [facility] Spine Scan ID [id number] [facility] RAD[facility] Spine Scan Date [id number] [facility] L1 BMD 0.827 g/cm2 [facility] RAD[facility] L1 T-SCORE -1.5 [facility] L1 Z-SCORE 0.3 [facility] RAD[facility] L1 PEAK REFERENCE 84 [facility] RADIOLOGY L1 AGE MATCHED 89 [facility] L2 BMD 0.931 g/cm2 [facility] L2 T-SCORE -0.9 [facility] L2 Z-SCORE 1.1 [facility] L2 PEAK REFERENCE 91 [facility] RADIOLOG[facility] L2 AGE MATCHED 115 [facility] L3 BMD 0.898 g/cm2 [facility] L3 T-Score -1.7 [facility] L3 Z-Score 0.4 [facility] L3 Peak Reference 83 DU MED RADIOLOGY L3 Age Matched 105 [facility] L4 BMD 0.929 g/cm2 [facility] L4 T-SCORE -1.2 [facility] L4 Z-SCORE 0.9 [facility] L4 Peak Reference 88 [facility] RADIOLOG[facility] L4 Age Matched 113 [facility] Lumbar Total BMD 0.898 g/[facility] Lumbar Total T-Score -1.4 [facility] Lumbar Total Z-Score 0.7 [facility] Lumbar Total Peak Reference 86 [facility] Lumbar Total Age Matched 89 [facility] Lumbar Total Classification Osteopenia [facility] Lumbar Total Included Regions L1, L2, L3, L4 [facility] RADIOLOG[facility] RHIP SCAN TYPE x Right Hip [facility]UK E [facility] RHIP SCAN ID [id number] [facility] D RADIOLOGY RHIP SCAN DATE [id number] [facility] RAD[facility] RHIP NECK BMD 0.559 g/cm2 [facility] ED RADIOLOGY RHIP NECK TSCORE -2.6 [facility] RADIOLOG[facility] RHIP NECK ZSCORE -0.9 [facility] RADIOLOG[facility] RHIP NECK PEAKREF 66 [facility] RADIOLOG[facility] RHIP NECK AGEMATCHED 85 [facility] RADIOLOG[facility] RHIP TROCH BMD 0.556 g/cm2 [facility] RADI[facility] RHIP TROCH TSCORE -1.5 [facility] RADIOLOG[facility] RHIP TROCH ZSCORE -0.2 [facility] RADIOLOG[facility] RHIP TROCH PEAKREF 79 [facility] RADIOLOGY RHIP TROCH AGEMATCHED 96 [facility] RADI[facility] RHIP INTER BMD 0.866 g/cm2 [facility] RAD[facility] RHIP INTER TSCORE -1.5 [facility] RADI[facility] RHIP INTER ZSCORE -0.3 [facility] RADIOLOG[facility] RHIP INTER PEAKREF 79 [facility] RADIOLOGY RHIP INTER AGEMATCHED 94 [facility] RAD[facility] RHIP TOTAL BMD 0.728 g/cm2 [facility] RAD[facility] RHIP TOTAL TSCORE -1.8 [facility] RADIOLOG[facility] RHIP TOTAL ZSCORE -0.3 [facility] RADIOLOG[facility] RHIP TOTAL PEAKREF 77 [facility] RADIOLOGY RHIP TOTAL AGEMATCHED 95 [facility] RAD[facility] RHIP TOTAL CLASSIFICATION Osteopenia [facility] RHIP NECK CLASSIFICATION Osteoporosis [facility] L Arm Scan Type a L.Forearm [facility] LARM Scan ID [id number] [facility] D RADIOLOGY LARM SCAN DATE [id number] [facility] RADIOLOGY LARM RANGE Radius [facility] RAD[facility] LARM UD BMD 0.351 g/cm2 [facility] RAD[facility] LARM UD TSCORE -1.6 [facility] RAD[facility] LARM UD ZSCORE -0.2 [facility] RADI[facility] LARM UD PEAKREF 79 [facility] RADIOLOG[facility] LARM UD AGEMATCHED 97 [facility] RAD[facility] LARM MID BMD 0.539 g/cm2 [facility] D RADIOLOGY LARM MID TSCORE -1.3 [facility] RAD[facility] LARM MID ZSCORE 0.7 [facility] RAD[facility] LARM MID PEAKREF 89 [facility] RADIOLOGY LARM MID AGEMATCHED 107 [facility] RADIOLOG[facility] LARM THIRD BMD 0.623 g/cm2 [facility] RADIOLOG[facility] LARM THIRD TSCORE -1.2 [facility] RADIOLOGY LARM THIRD ZSCORE 0.8 [facility] RAD[facility]OLOG[facility] LARM THIRD PEAKREF 90 [facility] RADIOLOGY LARM THIRD AGEMATCHED 108 [facility] RADIOLOG[facility] LARM TOTAL BMD 0.506 g/cm2 [facility] RAD[facility] LARM TOTAL TSCORE -1.4 DU MED RADIOLOGY LARM TOTAL ZSCORE 0.5 [facility] RADIOLOG[facility] LARM TOTAL PEAKREF 87 [facility] RADIOLOGY LARM TOTAL AGEMATCHED 106 [facility] RADI[facility] FXRISK SCAN TYPE x Right Hip D [facility] RAD[facility] FXRISK SCAN ID [id number] [facility] RADIOLOG[facility] FXRISK SCAN DATE [id number] [facility] RADIOLOGY FXRISK LABEL 10-year Fracture Risk(1) [facility] FXRISK MAJOR LABEL Major Osteoporotic Fracture [facility] Major Osteoporotic Fracture 14 % [facility] FXRISK HIP LABEL Hip Fracture [facility] Hip Fracture Risk 3.5 % [facility] RAD[facility] FXRISK REP RISK LABEL Reported Risk Factors: [facility] FXRISK REP RISK FACTORS US (), T-score(WHO)=-2 .5, BMI=23.8 [facility] FXRISK NOTE (1) FRAX(R) Version 3.08. Fracture probability calculated for an untreated patient. Fracture probability may be lower if the patient has received treatment. [facility] Anatomical Region Laterality Modality Computed Radiogr aphy 02/09/2025 Impressions 02/16/2025 3:38 PM EDT Osteoporosis The patient has a 3.5% risk of hip fracture over the next 10 years, and a 14% risk of major osteoporotic fracture (hip, clinical spine, distal forearm and proximal humerus combined) over the next 10 years. Note: This risk of fracture is based soley on patient self-reported information. The FRAX derived risk of fracture may be higher or lower, as vertebral and other clinical fractures are often not identified or reported, or patient reported fracture(s) may not be truly fragility based, respectively. Please note that FRAX derived risk of fracture is valid only for treatment naive individuals. Patients on treatment may have lower risks of hip and major osteoporotic fracture, though this has not been adequately established to date. Per National Osteoporosis Foundation guidelines, consider initiation of pharmacologic treatment in patients with: -- hip or vertebral (clinical or asymptomatic) fractures -- T-scores <=-2.5 at the femoral neck, total hip, or lumbar spine by DXA -- in postmenopausal women and men age 50 and older with low bone mass (T-score between -1.0 and -2.5, osteopenia) at the femoral neck, total hip, or lumbar spine by DXA AND a 10-year hip fracture probability >=3 % or a 10-year major osteoporosis-related fracture probability >=20 % based on the [place]-adapted WHO absolute fracture risk model. Please note that the proposed therapeutic thresholds do not preclude clinicians or patients from considering intervention strategies for those who do not have osteoporosis by BMD (WHO diagnostic criterion of T-score <=-2.5), do not meet the cut points after FRAX, or are not at high enough risk of fracture despite low BMD. Conversely, these recommendations should not mandate treatment, particularly in patients with low bone mass above the osteoporosis range. Decisions to treat must still be made on a gwdr-wy-juxe basis. (Mauro Shaw., Carrington Gonzalez., Rubio, MJenniferS. et al. Osteoporos Int (2014) 25: 2359. https://doi.org/10.1007/m66860-745-6171-1). Timing of repeat DXA scan is generally dependent on patient's specific clinical factors, although Medicare does reimburse repeat DXA every 24 months. If a patient starts a new FDA approved osteoporosis treatment, repeat DXA is recommended at 12 or 18 months, depending whether lumbar spine is or is not a valid site for measurement, respectively. Please see detailed interpretation of bone densitometric evaluations of each site for further information. Narrative 02/16/2025 3:38 PM EDT DXA BONE DENSITY 02/09/2025 10:30 AM PRIOR SCAN COMPARISON: None CLINICAL DATA: Post menopausal; N/A RISK FACTORS: Hyperparathyroidism CURRENT MEDICATIONS: N/A FINDINGS:Bone density evaluation was performed on the AP total lumbar spine using a [employer] Horizon A unit. The BMD average for the exam is 0.898 g/cm2. The T-score is -1.4 and the Z-score is 0.7. This result is consistent with osteopenia. Bone density evaluation was performed on the right femur neck using a Hologic unit. The BMD average for the exam is 0.559 g/cm2. The T-score is -2.6 and the Z-score is -0.9. This result is consistent with osteoporosis. Bone density evaluation was performed on the right total hip using a Hologic unit. The BMD average for the exam is 0.728 g/cm2. The T-score is -1.8 and the Z-score is -0.3. This result is consistent with osteopenia. Bone density evaluation was performed on the left proximal radius using a Hologic unit. The BMD average for the exam is 0.623 g/cm2. The T-score is -1.2 and the Z-score is 0.8. This result is consistent with osteopenia. us Margarita Ramos MD IMG DXA ORDERABLES Final Resul t * US soft tissue head and neck (02/07/2025 1:37 PM EDT) Anatomical Region Laterality Modality Neck Ultrasound 02/07/2025 Narrative 02/08/2025 7:15 PM EDT EXAM: US SOFT TISSUE HEAD AND NECK INDICATION: 69 years old Female with thyroid nodules, E04.2 Nontoxic multinodular goiter. Endocrine Problems ADDITIONAL HISTORY: None. TECHNIQUE: Serial grayscale and limited color Doppler ultrasound images of the thyroid gland were obtained in multiple planes. COMPARISON: 12/2023. FINDINGS: Thyroid: Right lobe: 3.9 x 0.8 x 1.2 cm Left lobe: 3.8 x 1.4 x 1.0 cm Isthmus: 0.25 cm Background echotexture: Homogeneous Nodule 1: Img# 490 Location: LT Lower Size: 1.3 x 0.9 x 0.8 cm (prior: 1.3 x 0.6 x 0.8 cm) Findings: Solid, isoechoic, wider than tall with smooth margins and punctate echogenic foci TI-RADS level: 4, stable, recommend continued follow-up per ACR guidelines Nodule 2: Img# 520 Location: LT Upper Size: 0.8 x 0.7 x 0.5 cm (prior: 0.6 x 0.4 x 0.6 cm) Findings: Solid, isoechoic, wider than tall, smooth margins and punctate echogenic foci TI-RADS level: 4, does not meet size criteria for biopsy or follow-up but may have slightly increased in size, recommend follow-up Nodule 3: Img# 590 Location: ISTHMUS Size: 0.6 x 0.6 x 0.4 cm (prior: 0.9 x 0.4 x 0.6 cm) Findings: Solid, isoechoic, smooth margins, wider than tall without echogenic foci TI-RADS level: 3, does not meet criteria for biopsy or follow-up and is stable Additional Pertinent Findings: None IMPRESSION: Relatively stable thyroid nodules as above. Recommend one-year follow-up. ACR TI-RADS recommendations TR5 (greater than or equal to 7 points) - FNA if greater than or equal to 1cm, follow-up annually if greater than or equal to 0.5 cm TR4 (4-6 points) - FNA if greater than or equal to 1.5 cm, follow-up at 1, 2, 3, and 5 years if greater than or equal to 1.0 cm TR3 (3 points)- FNA if greater than or equal to 2.5cm, follow-up at 1, 3, and 5 years if greater than or equal to 1.5 cm TR2 (2 points) & TR1 (0 points) - No FNA or follow-up * ACR TI-RADS recommends that no more than two nodules with the highest ACR TI-RADS total point should be biopsied and no more than four nodules should be followed. TI-RADS recommendations are based on TI-RADS level. Management decisions such as whether to perform FNA and whether to follow up a nodule may differ from the TI-RADS recommendation based on clinician judgement, patient preference, risk factors for thyroid cancer, comorbidities, life expectancy and other considerations. Electronically Signed by: Wei Suero MD, [facility] Electronically Signed on: 02/08/2025 7:15 PM Procedure Note Ab Suero MD - 02/08/2025 EXAM: US SOFT TISSUE HEAD AND NECK INDICATION: 69 years old Female with thyroid nodules, E04.2 Nontoxic multinodular goiter. Endocrine Problems ADDITIONAL HISTORY: None. TECHNIQUE: Serial grayscale and limited color Doppler ultrasound imagesof the thyroid gland were obtained in multiple planes. COMPARISON: 12/2023. FINDINGS: Thyroid: Right lobe: 3.9 x 0.8 x 1.2 cm Left lobe: 3.8 x 1.4 x 1.0 cm Isthmus: 0.25 cm Background echotexture: Homogeneous Nodule 1: Img# 490 Location: LT Lower Size: 1.3 x 0.9 x 0.8 cm (prior: 1.3 x 0.6 x 0.8 cm) Findings: Solid, isoechoic, wider than tall with smooth margins and punctate echogenic foci TI-RADS level: 4, stable, recommend continued follow-up per ACR guidelines Nodule 2: Img# 520 Location: LT Upper Size: 0.8 x 0.7 x 0.5 cm (prior: 0.6 x 0.4 x 0.6 cm) Findings: Solid, isoechoic, wider than tall, smooth margins andpunctate echogenic foci TI-RADS level: 4, does not meet size criteria for biopsy or follow-upbut may have slightly increased in size, recommend follow-up Nodule 3: Img# 590 Location: ISTHMUS Size: 0.6 x 0.6 x 0.4 cm (prior: 0.9 x 0.4 x 0.6 cm) Findings: Solid, isoechoic, smooth margins, wider than tall without echogenic foci TI-RADS level: 3, does not meet criteria for biopsy or follow-up and is stable Additional Pertinent Findings: None IMPRESSION: Relatively stable thyroid nodules as above. Recommend [id number]. ACR TI-RADS recommendations TR5 (greater than or equal to 7 points) - FNA if greater than or equal to 1cm, follow-up annually if greater than or equal to 0.5 cm TR4 (4-6 points) - FNA if greater than or equal to 1.5 cm, follow-up at1, 2, 3, and 5 years if greater than or equal to 1.0 cm TR3 (3 points)- FNA if greater than or equal to 2.5cm, follow-up at 1,3, and 5 years if greater than or equal to 1.5 cm TR2 (2 points) & TR1 (0 points) - No FNA or follow-up * ACR TI-RADS recommends that no more than two nodules with the highestACR TI-RADS total point should be biopsied and no more than four nodulesshould be followed. TI-RADS recommendations are based on TI-RADS level. Managementdecisions such as whether to perform FNA and whether to follow up a nodule maydiffer from the TI-RADS recommendation based on clinician judgement, patient preference, risk factors for thyroid cancer, comorbidities, lifeexpectancy and other considerations. Electronically Signed by: Wei Suero MD, [facility] Electronically Signed on: 02/08/2025 7:15 PM us Margarita Ramos MD IMG US ORDERABLES Final Result * Echo complete (01/29/2025 8:58 AM EDT) LV Ejection Fraction (%) 55 % [facility] Right Ventricle Systolic Pressure (mmHg) 27 mmHg [facility] Left Atrium Diameter (cm) 3.3 cm [facility] LV End Diastolic Diameter (cm) 4.7 cm [facility] LV End Systolic Diameter (cm) 3.1 cm [facility] LV Septum Wall Thickness (cm) 0.6 cm [facility] LV Posterior Wall Thickness (cm) 0.8 cm [facility] Tricuspid Valve Regurgitation Grade mild [facility] Tricuspid Valve Regurgitation Max Velocity (m/s) 2.5 m/s [facility] Mitral Valve Regurgitation Grade mild [facility] Mitral Valve Stenosis Grade none [facility] Aortic Valve Regurgitation Grade mild [facility] Aortic Valve Stenosis Grade none [facility] Anatomical Region Laterality Modality Other 01/29/2025 8:29 AM EDT Narrative 01/29/2025 2:42 PM EDT [facility] [id number] : 1955 Age: 69 ECHO-DOPPLER REPORT Date: 01/29/2025 Female Outpatient LOCATION: [facility] HI1: [place] AVILA STUDY: ECHO COMPLETE SOUND QLTY: Moderate ECHO: Yes STRAIN: Yes COLOR: Yes 3D: No DOPPLER: Yes BP: 127 / 63 RV BIOPSY: No HR: 53 BPM CONTRAST: No Height: 68 in MEDIUM: N/A Weight: 152 lbs MACHINE: JESSIE - E95-2 BSA: 1.8 ----- ----- History: A-Fib Reason: Assess LV function Indication: I48.0- Paroxysmal atrial fibrillation ([facility]-. CONCLUSION NORMAL LEFT VENTRICULAR SYSTOLIC FUNCTION WITH NO LVH ESTIMATED EF: >55%, CALC EF(2D): 61% NORMAL LA PRESSURES WITH NORMAL DIASTOLIC FUNCTION NORMAL RIGHT VENTRICULAR SYSTOLIC FUNCTION VALVULAR REGURGITATION: MILD AR, MILD MR, TRIVIAL ID, MILD TR ESTIMATED RVSP: 27 mmHg NO VALVULAR STENOSIS Compared with prior Echo study on 02/04/2024 NO SIGNIFICANT CHANGES ECHOCARDIOGRAPHIC DESCRIPTIONS AORTIC ROOT Asc Ao Size: Normal Dissection: INDETERMINATE FOR DISSECTION AORTIC VALVE Leaflets: Tricuspid Mobility: Fully Mobile Morphology: Normal AR: MILD AR : No AV Mass: No Masses LEFT VENTRICLE Size: Normal LVH: None Contraction: Normal Closest EF: >55% Calc. EF: 61%(2D) LV GLS (GE): -17.9% Normal Range <-18% Strain Analysis: GLS -16-18% Global longitudinal strain is at the lower limits of normal. As an adjunctive assessment of myocardial function, this strain value may be compatible with early or mild impairment of myocardial contractility in the setting of preserved EF. LV Mass: No Masses Richards. FxClass: Normal WALL MOTION Basal Mid Apical Anterior Septum: Normal Normal Normal Anterior Wall: Normal Normal Normal Lateral Wall: Normal Normal Normal Posterior Wall: Normal Normal Inferior Wall: Normal Normal Normal Inferior Septum: Normal Normal Rest Rest Score Index: 1.00 MITRAL VALVE Leaflets: Normal Mobility: Fully Mobile Morphology: Normal MR: MILD MR MS: No MS MV masses: No Masses LEFT ATRIUM Size: Normal LA masses: No Masses MAIN PA Size: Normal Diameter: 1.8 cm PULMONIC VALVE Leaflets: UNKNOWN Mobility: Fully Mobile Morphology: Normal ID: TRIVIAL ID PS: No PS PV masses: No Masses RIGHT VENTRICLE Size: Normal Free Wall: Normal Contraction: Normal TAPSE: 2.1 cm RV masses: No Masses TRICUSPID VALVE Leaflets: Normal Mobility: Fully Mobile Morphology: Normal TR: MILD TR TS: No TS TV masses: No Masses RIGHT ATRIUM Size: Normal RA masses: No Masses PERICARDIUM Fluid: No Effusion INFERIOR VENA CAVA Size: Normal Max Diam: 2 cm Resp.Collapse: Normal Respiratory Collapse RESTING ECHOCARDIOGRAPHIC MEASUREMENTS AORTA Measurements Values Units Normal Range Aorta Sin: 2.8 cm [2.4 - 3.6] Asc.Aorta: 3.3 cm [1.9 - 3.5] Asc. Aorta BSA: 1.8 cm/m2 [1.0 - 2.2] LEFT VENTRICLE LVIDd: 4.7 cm [3.8 - 5.2] LVIDs: 3.1 cm [2.2 - 3.5] LVIDd/BSA: 2.6 cm/m2 SWT: 0.6 cm [0.6 - 0.9] PWT: 0.8 cm [0.6 - 0.9] LV EF MOD BP: 61 % DIASTOLIC FUNCTION MV Pk. E Tino.: 63 cm/s MV Pk. A Tino.: 42.9 cm/s MV E/A: 1.5 MV DT: 179 msec MV Med E' Tino.: 8.2 cm/s MV Med E/e': 7.7 MV Lat E'Tino.: 9.3 cm/s MV Lat E/e': 6.8 MV Avg E/e': 7.2 cm/s LEFT ATRIUM LA Diam: 3.3 cm [2.7 - 3.8] LA Area: 17.2 cm2 [<= 20] LA Volume: 52 ml [18 - 58] Marcelo: 28 ml/m2 [16 - 34] RIGHT VENTRICLE RV TAPSE: 2.1 cm RV S' Tino.: 11.3 cm/s RV Base: 3.9 cm [2.5 - 4.1] RV Mid: 2.3 cm [1.9 - 3.5] RIGHT ATRIUM RA Area: 17.1 cm2 [ <= 20] RA Volume: 46 mL Stevie: 25 mL/m2 [15 - 27] Pressures, Gradients, and DOPPLER ECHO Aortic Regurgitation Values AI Pk. Tino.: 3.9 m/s Mitral Valve MV Pk. E Tino.: 63 cm/s MV Pk. A Tino.: 42.9 cm/s MV E/A: 1.5 MV Inflow E Tino.: 63 cm/s MV Annulus E'Tino.: 8.2 cm/s E/E'Ratio: 8 Tricuspid Regurgitation Values TR Pk. Tino.: 2.5 m/s RA Pressure: 3 mmHg RVSP: 27 mmHg Peak Perform By: TIFFANY River Res. Person: TIFFANY River Electronically signed by Watson Avila DO on:01/29/2025 2:42:09 PM with status of Final The images are stored in the Mailcloud system, please contact the clinical provider for images related to this study. Procedure Note Watson Avila DO - 01/29/2025 [facility] [id number] :1955 Age: 69 ECHO-DOPPLER REPORT Date:01/29/2025 Female Outpatient LOCATION: [facility] HI1: CRISTIANO AVILA STUDY: ECHO COMPLETE SOUND QLTY:Moderate ECHO: Yes STRAIN: Yes COLOR: Yes 3D: No DOPPLER: Yes BP: 127 /63 RV BIOPSY: No HR: 53 BPM CONTRAST: No Height: 68 in MEDIUM: N/A Weight: 152lbs MACHINE: JESSIE - E95-2 BSA: 1.8 ----- ----- History: A-Fib Reason: Assess LV function Indication: I48.0- Paroxysmal atrial fibrillation (CMS/[facility]-. CONCLUSION ----- ---- NORMAL LEFT VENTRICULAR SYSTOLIC FUNCTION WITH NO LVH ESTIMATED EF: >55%, CALC EF(2D): 61% NORMAL LA PRESSURES WITH NORMAL DIASTOLIC FUNCTION NORMAL RIGHT VENTRICULAR SYSTOLIC FUNCTION VALVULAR REGURGITATION: MILD AR, MILD MR, TRIVIAL ID, MILD TR ESTIMATED RVSP: 27 mmHg NO VALVULAR STENOSIS Compared with prior Echo study on 02/04/2024 NO SIGNIFICANT CHANGES ECHOCARDIOGRAPHIC DESCRIPTIONS AORTIC ROOT Asc Ao Size: Normal Dissection: INDETERMINATE FOR DISSECTION AORTIC VALVE Leaflets: Tricuspid Mobility:Fully Mobile Morphology: Normal AR: MILD AR : NoAS AV Mass: No Masses LEFT VENTRICLE Size: Normal LVH: None Contraction: Normal Closest EF: >55% Calc. EF:61%(2D) LV GLS (GE): -17.9% Normal Range <-18% Strain Analysis: GLS -16-18% Global longitudinal strain is at thelower limits of normal. As an adjunctive assessment of myocardialfunction, this strain value may be compatible with early or mildimpairment of myocardial contractility in the setting of preservedEF. LV Mass: No Masses Richards. FxClass: Normal WALL MOTION Basal Mid Apical Anterior Septum: Normal Normal Normal Anterior Wall: Normal Normal Normal Lateral Wall: Normal Normal Normal Posterior Wall: Normal Normal Inferior Wall: Normal Normal Normal Inferior Septum: Normal Normal Rest Rest Score Index: 1.00 MITRAL VALVE Leaflets: Normal Mobility:Fully Mobile Morphology: Normal MR: MILD MR MS: NoMS MV masses: No Masses LEFT ATRIUM Size: Normal LA masses: No Masses MAIN PA Size: Normal Diameter: 1.8cm PULMONIC VALVE Leaflets: UNKNOWN Mobility:Fully Mobile Morphology: Normal ID: TRIVIAL ID PS: NoPS PV masses: No Masses RIGHT VENTRICLE Size: Normal Free Wall:Normal Contraction: Normal TAPSE: 2.1 cm RV masses: No Masses TRICUSPID VALVE Leaflets: Normal Mobility:Fully Mobile Morphology: Normal TR: MILD TR TS: NoTS TV masses: No Masses RIGHT ATRIUM Size: Normal RA masses: No Masses PERICARDIUM Fluid: No Effusion INFERIOR VENA CAVA Size: Normal Max Diam: 2 cm Resp.Collapse: Normal Respiratory Collapse RESTING ECHOCARDIOGRAPHIC MEASUREMENTS AORTA Measurements Values Units Normal Range Aorta Sin: 2.8 cm [2.4 - 3.6] Asc.Aorta: 3.3 cm [1.9 - 3.5] Asc. Aorta BSA: 1.8 cm/m2 [1.0 - 2.2] LEFT VENTRICLE LVIDd: 4.7 cm [3.8 - 5.2] LVIDs: 3.1 cm [2.2 - 3.5] LVIDd/BSA: 2.6 cm/m2 SWT: 0.6 cm [0.6 - 0.9] PWT: 0.8 cm [0.6 - 0.9] LV EF MOD BP: 61 % DIASTOLIC FUNCTION MV Pk. E Tino.: 63 cm/s MV Pk. A Tino.: 42.9 cm/s MV E/A: 1.5 MV DT: 179 msec MV Med E' Tino.: 8.2 cm/s MV Med E/e': 7.7 MV Lat E'Tino.: 9.3 cm/s MV Lat E/e': 6.8 MV Avg E/e': 7.2 cm/s LEFT ATRIUM LA Diam: 3.3 cm [2.7 - 3.8] LA Area: 17.2 cm2 [<= 20] LA Volume: 52 ml [18 - 58] Marcelo: 28 ml/m2 [16 - 34] RIGHT VENTRICLE RV TAPSE: 2.1 cm RV S' Tino.: 11.3 cm/s RV Base: 3.9 cm [2.5 - 4.1] RV Mid: 2.3 cm [1.9 - 3.5] RIGHT ATRIUM RA Area: 17.1 cm2 [ <= 20] RA Volume: 46 mL Stevie: 25 mL/m2 [15 - 27] Pressures, Gradients, and DOPPLER ECHO Aortic Regurgitation Values AI Pk. Tino.: 3.9 m/s Mitral Valve MV Pk. E Tino.: 63 cm/s MV Pk. A Tino.: 42.9 cm/s MV E/A: 1.5 MV Inflow E Tino.: 63 cm/s MV Annulus E'Tino.: 8.2 cm/s E/E'Ratio: 8 Tricuspid Regurgitation Values TR Pk. Tino.: 2.5 m/s RA Pressure: 3 mmHg RVSP: 27 mmHg Peak Perform By: TIFFANY River Res. Person: TIFFANY River Electronically signed by Watson Avila DO on:01/29/2025 2:42:09 PMwith status of Final The images are stored in the Mailcloud system, please contact the clinicalprovider for images related to this study. Watson Avila DO CV ECHO ORDERABLES Final R esult * Albumin/Creatinine Ratio, Random Urine (12/31/2024 12:00 PM EDT) Albumin/Creatini ne Ratio 5.1 <30.0 mg/g 12/31/2024 8:59 PM EDT [facility] Comment: Interpretive Data: Albuminuria Categories (mg/g) A1 <30 Normal to mildly increased A2 30-300 Moderately increased A3 >300 Severe increased Albumin, Urine 6.7 mg/L 12/31/2024 8:59 PM EDT [facility] Comment: Interpretive Data No urine albumin reference range reported. The [place] [employer] recommends the use of the ratio as the preferred means of screening for diabetic nephropathy. Urine Collection / Unknown 12/31/2024 12:00 PM EDT 12/31/2024 4:58 PM EDT Jennifer Landry MD URINE ORDERABLES Final Re sult [facility] [address], [address] [place] [address] * Comprehensive Metabolic Panel (CMP) (12/31/2024 12:00 PM EDT) Sodium 139 135 - 145 mmol/L 12/31/2024 6:50 PM EDT [facility] Potassium 4.0 3.5 - 5.0 mmol/L 12/31/2024 6:50 PM EDT [facility] Chloride 104 98 - 108 mmol/L 12/31/2024 6:50 PM EDT [facility] Carbon Dioxide (CO2) 23 21 - 30 mmol/L 12/31/2024 6:50 PM EDT [facility] Urea Nitrogen (BUN) 17 7 - 20 mg/dL 12/31/2024 6:50 PM EDT [facility] Creatinine 1.0 0.4 - 1.0 mg/dL 12/31/2024 6:50 PM EDT [facility] Glucose 86 70 - 140 mg/dL 12/31/2024 6:50 PM EDT [facility] Comment: Interpretive Data: Above is the NONFASTING reference range. Below are the FASTING reference ranges: NORMAL: 70-99 mg/dL PREDIABETES: 100-125 mg/dL DIABETES: > 125 mg/dL Calcium 9.2 8.7 - 10.2 mg/dL 12/31/2024 6:50 PM EDT [facility] AST (Aspartate Aminotransferase) 33 15 - 41 U/L 12/31/2024 6:50 PM EDT [facility] ALT (Alanine Aminotransferase) 24 10 - 39 U/L 12/31/2024 6:50 PM EDT [facility] Bilirubin, Total 0.8 0.4 - 1.5 mg/dL 12/31/2024 6:50 PM EDT [facility] Alk Phos (Alkaline Phosphatase) 46 24 - 110 U/L 12/31/2024 6:50 PM EDT [facility] Albumin 4.0 3.5 - 4.8 g/dL 12/31/2024 6:50 PM EDT [facility] Protein, Total 6.2 6.2 - 8.1 g/dL 12/31/2024 6:50 PM EDT [facility] Anion Gap 12 3 - 12 mmol/L 12/31/2024 6:50 PM EDT [facility] BUN/CREA Ratio 17 6 - 27 12/31/2024 6:50 PM EDT [facility] Glomerular Filtration Rate (eGFR) 61 mL/min/1.7 3sq m 12/31/2024 6:50 PM EDT [facility] Comment: CKD-EPI (2020) does [...] patients on dialysis. Blood Venipuncture / Unknown 12/31/2024 12:00 PM EDT 12/31/2024 6:11 PM EDT Jennifer Landry MD LAB BLOOD ORDERABLES Zoila l Result [facility] [address] [place] [address], [address] [place] [address] * Lipid Panel W/Reflex Direct Low Density Lipoprotein (LDL) Cholesterol (03/31/2024 8:08 AM EDT) [facility] Cholesterol, Total 154 mg/dL 2023 12:23 PM EDT [facility] Comment:The significance of total cholesterol depends on the values of individual components including HDL, LDL, non-HDL, and triglycerides. LDL Calculated 80 <190 mg/dL 03/31/2024 12:23 PM EDT [facility] Comment: <70 mg/dL Desired target for prior heart disease, stroke, and those at high-risk. Even lower levels may be recommended to decrease risk of heart attack and stroke. 70-159 mg/dL Comprehensive cardiovascular risk assessment is recommended. Statin therapy may be advised based on risk factors. 160-189 mg/dL Moderately elevated LDL level. Statin therapy recommended if other risk factors present. >=190 mg/dL Severely elevated LDL level. High long-term risk of heart disease and stroke. High-intensity statin therapy recommended for most people. Consider specialist referral. *A healthy diet and exercise are recommended for all to reduce heart disease risk. Statin choice should be based on patient preference after patient-provider discussions. Ref: 2018 ACC/AHA Guideline HDL 58 mg/dL 03/31/2024 12:23 PM EDT [facility] Comment: People with low HDL levels (see below) are at increased risk of heart disease: <50 mg/dL for Women <40 mg/dL for Men Triglyceride 78 <500 mg/dL 03/31/2024 12:23 PM EDT [facility] Comment: <150 mg/dL Normal 150-499 mg/dL High Triglycerides. Risk of heart disease may be increased. Address reversible causes (eg sugar in foods and beverages, alcohol, and diabetes control). Medication may be appropriate based on other clinical factors. >=500 mg/dL Very High Triglycerides. Risk of heart disease and pancreatitis increased. Address reversible causes as above. Medication to lower triglycerides usually advised. *Ranges provided for adults, pediatric guidelines vary. Blood Venipuncture / Unknown 03/31/2024 8:08 AM EDT 03/31/2024 11:51 AM EDT us Watson Avila DO LAB BLOOD ORDERABLES Final Result [facility] [address] [place], [place] [id number] * Hepatitis C Antibody (10/19/2022 9:33 AM EDT) Hepatitis C Virus Antibody NonReactive NonReactive 10/20/2022 3:46 PM EDT [facility] Blood Venipuncture / Unknown 10/19/2022 9:33 AM EDT 10/19/2022 10:44 AM EDT Jennifer Landry MD LAB BLOOD ORDERABLES Zoila l Result [facility] [address] [facility] [address] [facility], [address] [place] [address] from Last 3 Months or Most Recently Relevant to Health Maintenance Care Teams [place]erry Captain Relationship Specialty Start Date End Date Jennifer Landry MD [address] [place] [address] PCP - General Internal Medicine 09/20/23 Matthieu Hernandez MD [address] [place] [address] Consulting Provider Endocrinology 09/19/22 Florecita Hopson MD [address] [address] Covering Provider Urogynecology 09/19/22
--- OUTSIDE RECORDS SUMMARY | 2025-04-11 10:30 | XMS_ITS | Encounter Summary ---
Author Organization [facility] Address [address] [place] [address] Care Team Providers Care Produce Sorter Name Role Phone Jennifer Landry MD Primary Care Provider [phone] Matthieu Hernandez MD Unavailable [phone] Florecita Hopson MD Unavailable [phone] Jennifer Landry MD Primary Care Provider [phone] Reason for Visit * Reason Onset Date Comments Surgery Posting- Dr. Bay 03/12/2023 Encounter Details Date Type Department Care Team (Late st Contact Info) Description 03/12/2023 Documentation [facility] [facility] [address] [place] [address] Otis Bay MD [address] [facility] [address] [place] [address] Surgery Posting- Dr. Bay Social History Tobacco Use Types Packs/Day Years Used Date Smoking Tobacco: Never Smokeless Tobacco: Never Alcohol Use Standard Drinks/Week Comments Yes 2 (1 standard drink = 0.6 oz pur e alcohol) PHQ-2 Answer Date Recorded (OBSOLETE) Total Score = 0 023 Comments No Sex and Gender Information Value Date Recorded Sex Assigned at Female 02/13/2022 9:35 AM EDT Legal Sex Female 12:45 PM EST Gender Identity Female 02/13/2022 9:35 AM EDT Sexual Orientation Straight 02/13/2022 9: 35 AM EDT Travel History Travel Start Travel End [facility] land 03/23/2025 04/06/2025 documented as of this encounter Plan of Treatment Upcoming Encounters Date Type Department Care Team (Late st Contact Info) Description 04/13/2025 8:00 AM EDT Office Visit [facility] [address] [place] [address] Marcooc, Lucita Kim, OD [address] [place] [address] 04/14/2025 8:20 AM EDT [facility] [address] [facility] [address] [place] [address] Kerry Zaragoza MD [address] [facility] [address] [place] [address] Follow up 04/22/2025 10:00 AM EDT Initial consult [facility] 40 [facility] 1E [place] [address] Cristal Cabrera MD 40 [place] [address] 289.89 (ICD-9-CM) - D75.89 (ICD-10-CM) - Macrocytosis without anemia 05/08/2025 3:30 PM EDT Office [facility] 2nd Floor [address] [place] [address] Lizbeth Fuller MD [address] [place] [address] Marcie Macario MD 40 [place] [address] ACV visit today - schedule follow-up any provider 3-6 months for hair loss 05/11/2025 1:15 PM EDT Office Visit [facility] [place] [address] [place] [address] Otis Bay MD [address] [facility] [address] [place] [phone] 6 month f/u per paper 06/03/2025 10:00 AM EST Nurse Only [facility] 30 [facility] 1B 1C [place] [address] [email or web address] 01/19/2025- 2wk post op 07/01/2025 2:15 PM EST Office Visit [facility] [place] [facility] [address] [place] [address] Estefani Whipple, OD [address] [place] [address] 07/02/2025 1:40 PM EST Post Op [facility] [address] [place] [address] Brisa Pugh NP [address] [facility] 300 [place] [address] [email or web address] 01/19/2025- 6wk post op 07/29/2025 10:20 AM EST Office Visit [facility] [address] [place] [address] [place] [phone] Ciaran Mcgee DO [address] [place] [address] [place] [address] [place] F/U 08/03/2025 1:15 PM EST Hospital Encounter [facility] 10 [place] [address] Martina Vicnent MD 40 [place] [address] 08/03/2025 1:15 PM EST - 08/03/2025 4:45 PM EST Surgery [facility] 10 [place] [address] Martina Vincent MD 40 [place] [address] C3-7 laminoplast LAMINOPLASTY, CERVICAL, W/DECOMPRESSION OF SPINAL CORD, 2 OR MORE VERTEBRAL SEGMENTS; W/RECONSTRUCTION POSTERIOR BONY ELEMENTS 08/14/2025 9:20 AM EST Office Visit [facility] [address] [place] [phone] Namrata Pollock MD [address]20 [place] [address] Jaimee Arroyo NP [address] [address] return Scheduled Procedures Name Priority Associated Diagnoses [...] documented as of this encounter Care Teams Produce Sorter Relationship Specialty Start Date End Date Jennifer Landry MD [address] [place] [address] PCP - General Internal Medicine 10/10/21 07/26/23 Jennifer Landry MD [address] [place] [address], [place] [address] PCP - General Internal Medicine 09/20/23 Matthieu Hernandez MD 30 [place] [address] Consulting Provider Endocrinology 09/19/22 Florecita Hopson MD [address] [address] Covering Provider Urogynecology 09/19/22 documented as of this encounter
--- OUTSIDE RECORDS SUMMARY | 2025-04-11 10:30 | XMS_ITS | Encounter Summary ---
Author Organization [facility] Address [address] [place] [address] Care Team Providers Care Communications Equipment Supervisor Name Role Phone Jennifer Landry MD Primary Care Provider [phone] Matthieu Hernandez MD Unavailable [phone] Florecita Hopson MD Unavailable [phone] Jennifer Landry MD Primary Care Provider [phone] Encounter Details Date Type Department Care Team (Late st Contact Info) Description 11/17/2021 OnBase Documentation On File [address] [place] [address] Social History Tobacco Use Types [...] EDT Travel History Travel Start Travel End [facility] 03/23/2025 04/06/2025 COVID-19 Exposure Response Date Recorded In the last 10 days, have yo u been in contact with someone who was confirmed or suspected to have Coronavirus/COVID-19? No / Unsure 11/16/2021 11:42 AM EDT documented as of this encounter Plan of Treatment Upcoming Encounters Date Type Department Care Team (Late st Contact Info) Description 04/13/2025 8:00 AM EDT Office Visit [facility] [address] [place] [address] Lucita Méndez, OD [address] [place] [address] 04/14/2025 8:20 AM EDT [facility] [address] [facility] [address] [place] [address] Kerry Zaragoza MD 1821 [facility] [address] [place], [place] [address] Follow up 04/22/2025 10:00 AM EDT Initial consult [facility]ology 40 [facility] 1E [place] [address] Cristal Cabrera MD 40 [place] [address] 289.89 (ICD-9-CM) - D75.89 (ICD-10-CM) - Macrocytosis without anemia 05/08/2025 3:30 PM EDT Office [facility] 2nd Floor [address] [place] [address] [address] [place] [address] Lizbeth Fuller MD [address] [facility] [address] [place] [address] Marcie Macario MD 40 [place] [address] ACV visit today - schedule follow-up any provider 3-6 months for hair loss 05/11/2025 1:15 PM EDT Office Visit [facility] [address] [place] [address] Otis Bay MD 4709 [facility] [address] [place] [address] 6 month f/u per paper 06/03/2025 10:00 AM EST Nurse Only [facility] 30 [facility] 1B 1C [place] [address] [email or web address] 01/19/2025- 2wk post op 07/01/2025 2:15 PM EST Office [facility] [address] [place] [address] Estefani Whipple, OD [address] [place] [address] 07/02/2025 1:40 PM EST Post Op [facility] [address] [place] [address] Brisa Pugh, [place] 5601 [facility] [address] [place] [address] [email or web address] 01/19/2025- 6wk post op 07/29/2025 10:20 AM EST Office Visit [address] [place] [phone] Ciaran Mcgee, DO [address] [place] [address] [place] [address] 6 [place] F/U 08/03/2025 1:15 PM EST Hospital Encounter [facility] 10 [place] [address] Martina Vincent MD 40 [place] [address] 08/03/2025 1:15 PM EST - 08/03/2025 4:45 PM EST Surgery [facility] 10 [place] [address] Martina Vincent MD 40 [place] [address] C3-7 laminoplast LAMINOPLASTY, CERVICAL, W/DECOMPRESSION OF SPINAL CORD, 2 OR MORE VERTEBRAL SEGMENTS; W/RECONSTRUCTION POSTERIOR BONY ELEMENTS 08/14/2025 9:20 AM EST Office Visit [facility] [address] [address] Namrata Pollock MD 4220 [place] [address] Jaimee Arroyo NP [address] [address] return Scheduled Procedures Name Priority Associated Diagnoses [...] documented as of this encounter Care Teams Communications Equipment Supervisor Relationship Specialty Start Date End Date Jennifer Landry MD [address] [place] [address] PCP - General Internal Medicine 10/10/21 07/26/23 Jennifer Landry MD [address] [place] [address] PCP - General Internal Medicine 09/20/23 Matthieu Hernandez MD 30 [place] [address] Consulting Provider Endocrinology 09/19/22 Florecita Hopson MD [address] [place] [address] [address] Covering Provider Urogynecology 09/19/22 documented as of this encounter
--- OUTSIDE RECORDS SUMMARY | 2025-04-11 10:30 | XMS_ITS | Encounter Summary ---
Author Organization [facility] Address [address] [place] [address] Care Team Providers Care Senior Ux Designer Name Role Phone Matthieu Hernandez MD Unavailable [phone] Florecita Hopson MD Unavailable [phone] Jennifer Landry MD Primary Care Provider [phone] Encounter Details Date Type Department Care Team (Latest Contact Info) Description 04/10/2025 Travel Social History Tobacco Use Types Packs/Day Years [...] any time in the past 12 m [facility], were you homeless or living in a skilled nursing (including now)? No 01/02/2025 [facility] Utilities Answer Date Recorded In the past [...] EDT Travel History Travel Start Travel End [facility] 03/23/2025 04/06/2025 documented as of this encounter Plan of Treatment Upcoming Encounters Date Type Department Care Team (Late st Contact Info) Description 04/13/2025 8:00 AM EDT Office Visit [facility] [address] [place] [address] Lucita Méndez, OD [address] [place] [address] 04/14/2025 8:20 AM EDT [facility] [address] [place] [address] [place] [phone] Kerry Zaragoza MD [address] [place] [address] [place] [address] Follow up 04/22/2025 10:00 AM EDT Initial consult [facility] 40 [facility] 1E [place] [address] Cristal Cabrera MD 40 [place] [address] 289.89 (ICD-9-CM) - D75.89 (ICD-10-CM) - Macrocytosis without anemia 05/08/2025 3:30 PM EDT Office Visit [facility] 2nd Floor [address] [facility] 210 [place] [address] Lizbeth Fuller MD [address] [facility] [facility] [address] [place], [place] [address] Marcie Macario MD 40 [place] [address] ACV visit today - schedule follow-up any provider 3-6 months for hair loss 05/11/2025 1:15 PM EDT Office Visit [facility] [address] [place] [address] Otis Bay MD 4709 [facility] [address] [place] [address] 6 month f/u per paper 06/03/2025 10:00 AM EST Nurse Only [facility] 30 [facility] 1B 1C [place] [address] [email or web address] 01/19/2025- 2wk post op 07/01/2025 2:15 PM EST Office Visit [facility] [place] [address] [place] [address] Estefani Whipple, OD 2351 [place] [address] 07/02/2025 1:40 PM EST Post Op [facility] [address] [place] [address] Brisa Pugh, [place] [facility] [facility] [address] [place] [address] [email or web address] 01/19/2025- 6wk post op 07/29/2025 10:20 AM EST Office Visit [facility] 1821 [facility] [address] [place] [phone] [place] [address] [place] [address] [place] [address] 6 [place] F/U 08/03/2025 1:15 PM EST Hospital Encounter [facility] [facility] 10 [place] [address] Martina Vincent MD 40 [place] [address] 08/03/2025 1:15 PM EST - 08/03/2025 4:45 PM EST Surgery [facility] [place] [facility] 10 [place] [address] Martina Vincent MD 40 [place] [address] C3-7 laminoplast LAMINOPLASTY, CERVICAL, W/DECOMPRESSION OF SPINAL CORD, 2 OR MORE VERTEBRAL SEGMENTS; W/RECONSTRUCTION POSTERIOR BONY ELEMENTS 08/14/2025 9:20 AM EST Office Visit [facility] [address] [phone] Namrata Pollock MD 42[address] [place] [address] Jaimee Arroyo, [place] [address] [address] return Scheduled Procedures Name Priority Associated Diagnoses Date/Ti me LAMINOPLASTY, CERVICAL, W/DECOMPRESSION OF SPINAL CORD, 2 OR MORE VERTEBRAL SEGMENTS; W/RECONSTRUCTION POSTERIOR BONY ELEMENTS Spondylosis, cervical, with myelopathy Cervical stenosis of spine 08/03/2025 1:15 PM EST documented as of this encounter Visit Diagnoses Not on filedocumented in this encounter Care Teams Senior Ux Designer Relationship Specialty Start Date End Date Jennifer Landry MD [address] [place] [address] PCP - General Internal Medicine 09/20/23 Matthieu Hernandez MD 30 [place] [address] Consulting Provider Endocrinology 09/19/22 Florecita Hopson MD [address] [address] Covering Provider Urogynecology 09/19/22 documented as of this encounter
--- OUTSIDE RECORDS SUMMARY | 2025-04-11 10:30 | XMS_ITS | Encounter Summary ---
Author Organization [facility] Address [address] [place] [address] Care Team Providers Care Otr Flatbed Driver Name Role Phone Jennifer Landry MD Primary Care Provider [phone] Matthieu Hernandez MD Unavailable [phone] Florecita Hopson MD Unavailable [phone] Jennifer Landry MD Primary Care Provider [phone] Encounter Details Date Type Department Care Team (Late st Contact Info) Description 06/22/2023 Orders Only [facility] [address] [place] [address] Jennifer Landry MD [address] [place] [address] Social History Tobacco Use Types Packs/Day Years Used Date Smoking Tobacco: Never Smokeless Tobacco: Never Alcohol Use Standard Drinks/Week Comments Yes 2 (1 standard drink = 0.6 oz pur e alcohol) PHQ-2 Answer Date Recorded (OBSOLETE) Total Score = 0 023 Interpersonal Safety Answer Date Record ed Is Anyone Hurting/Threatening You or Making You Feel Afraid? No 05/09/2023 Is Anyone Hurting/Threatening You or Making You Feel Afraid? No 05/09/2023 Comments No Sex and Gender Information Value Date Recorded Sex Assigned at Female 02/13/2022 9:35 AM EDT Legal Sex Female 12:45 PM EST Gender Identity Female 02/13/2022 9:35 AM EDT Sexual Orientation Straight 02/13/2022 9: 35 AM EDT Travel History Travel Start Travel End [facility] 03/23/2025 04/06/2025 documented as of this encounter Plan of Treatment Upcoming Encounters Date Type Department Care Team (Late st Contact Info) Description 04/13/2025 8:00 AM EDT Office Visit [facility] [address] [place] [address] Marcooc Lucita Kim, OD [address]1 [place] [address] 04/14/2025 8:20 AM EDT [facility] 1821 [facility] [address] [place] [address] Kerry Zaragoza MD 1821 [facility] [address] [place] [address] Follow up 04/22/2025 10:00 AM EDT Initial consult [facility] Hematology 40 [facility] 1E [place] [address] Cristal Cabrera MD 40 [place] [address] 289.89 (ICD-9-CM) - D75.89 (ICD-10-CM) - Macrocytosis without anemia 05/08/2025 3:30 PM EDT Office Visit [facility] 2nd Floor [address] [place] [address] Lizbeth Fuller MD [address] [place] [address] Marcie Macario MD 40 [place] [address] ACV visit today - schedule follow-up any provider 3-6 months for hair loss 05/11/2025 1:15 PM EDT Office Visit [facility] [address] [place] [address] Otis Bay MD 4709 [employer] [address] [place] [address] 6 month f/u per paper 06/03/2025 10:00 AM EST Nurse Only [facility] 30 [facility] 1B [address]C [place] [address] [email or web address] 01/19/2025- 2wk post op 07/01/2025 2:15 PM EST Office Visit [facility] [address] [place] [address] Estefani Whipple, OD [address]1 [place] [address] 07/02/2025 1:40 PM EST Post Op [facility] [address] [place] [address] Brisa Pugh, [place] 5601 [facility] [address] [place] [address] [email or web address] 01/19/2025- 6wk post op 07/29/2025 10:20 AM EST Office Visit [address] [place] [phone] Ciaran Mcgee, [address] [place] [address] [place] [address] MO F/U 08/03/2025 1:15 PM EST Hospital Encounter [facility] [place] [facility] 10 [place] [address] Martina Vincent MD 40 [place] [address] 08/03/2025 1:15 PM EST - 08/03/2025 4:45 PM EST Surgery [facility] [place] [facility] 10 [place] [address] Martina Vincent MD 40 [place] [address] C3-7 laminoplast LAMINOPLASTY, CERVICAL, W/DECOMPRESSION OF SPINAL CORD, 2 OR MORE VERTEBRAL SEGMENTS; W/RECONSTRUCTION POSTERIOR BONY ELEMENTS 08/14/2025 9:20 AM EST Office Visit [facility] [address] [phone] Namrata Pollock MD 4220 [place] [address] [place] [address] [place] [address] return Scheduled Procedures Name Priority Associated Diagnoses [...] documented as of this encounter Care Teams Otr Flatbed Driver Relationship Specialty Start Date End Date Jennifer Landry MD [address] [place] [address] PCP - General Internal Medicine 10/10/21 07/26/23 Jennifer Landry MD [address] [place] [address] PCP - General Internal Medicine 09/20/23 Matthieu Hernandez MD 30 [place] [address] Consulting Provider Endocrinology 09/19/22 Florecita Hopson MD [address] [address] Covering Provider Urogynecology 09/19/22 documented as of this encounter
--- OUTSIDE RECORDS SUMMARY | 2025-04-11 10:30 | XMS_ITS | Encounter Summary ---
Author Organization [facility] Address [address] [place] [address] Care Team Providers Care Od Grinder Operator Name Role Phone Jennifer Landry MD Primary Care Provider [phone] Matthieu Hernandez MD Unavailable [phone] Florecita Hopson MD Unavailable [phone] Jennifer Landry MD Primary Care Provider [phone] Encounter Details Date Type Department Care Team (Late st Contact Info) Description 12/24/2021 OnBase Documentation On File [address] [place] [address] Social History Tobacco Use Types [...] EDT Travel History Travel Start Travel End [facility] [...] Description 04/13/2025 8:00 AM EDT Office Visit [facility] [address] [place] [address] Lucita Méndez, OD [address]1 [place] [address] 04/14/2025 8:20 AM EDT [facility] 1821 [facility] [address] [place] [address] Kerry Zaragoza MD 1821 [facility] [address] [place], [place] [address] Follow up 04/22/2025 10:00 AM EDT Initial consult [facility] 40 [facility] 1E [place] [address] Crsital Cabrera MD 40 [place] [address] 289.89 (ICD-9-CM) - D75.89 (ICD-10-CM) - Macrocytosis without anemia 05/08/2025 3:30 PM EDT Office Visit [facility] 2nd Floor [address] [place] [address] [address] [place] [address] Lizbeth Fuller MD [address] [facility] [address] [place] [address] Marcie Macario MD 40 [place] [address] ACV visit today - schedule follow-up any provider 3-6 months for hair loss 05/11/2025 1:15 PM EDT Office Visit [facility] [address] [place] [address] Otis Bay MD 4[address] [facility] [address] [place] [address] 6 month f/u per paper 06/03/2025 10:00 AM EST Nurse Only [facility] 30 [facility] 1B [address] [place] [address] [email or web address] 01/19/2025- 2wk post op 07/01/2025 2:15 PM EST Office Visit [facility] [address] [place] [address] Estefani Whipple, OD [address] [place] [address] 07/02/2025 1:40 PM EST Post Op [facility] [address] [place] [address] Brisa Pugh, [place] 5601 [facility] [address] [place] [email or web address] 01/19/2025- 6wk post op 07/29/2025 10:20 AM EST Office Visit [address] [place] [phone] Ciaran Mcgee, DO [address] [place] [address] [place] [address] 6 MO F/U 08/03/2025 1:15 PM EST Hospital Encounter [facility] [place] [facility] 10 [place] [address] Martina Vincent MD 40 [place] [address] 08/03/2025 1:15 PM EST - 08/03/2025 4:45 PM EST Surgery [facility] 10 [place] [address] Martina Vincent MD 40 [place] [address] C3-7 laminoplast LAMINOPLASTY, CERVICAL, W/DECOMPRESSION OF SPINAL CORD, 2 OR MORE VERTEBRAL SEGMENTS; W/RECONSTRUCTION POSTERIOR BONY ELEMENTS 08/14/2025 9:20 AM EST Office Visit [facility] [address] [address] Namrata Pollock MD 4220 [place] [address] Jaimee Arroyo NP [address] [address] return Scheduled Procedures Name Priority Associated Diagnoses [...] documented as of this encounter Care Teams Od Grinder Operator Relationship Specialty Start Date End Date Jennifer Landry MD [address] [place] [address] PCP - General Internal Medicine 10/10/21 07/26/23 Jennifer Landry MD [address] [place] [address] PCP - General Internal Medicine 09/20/23 Matthieu Hernandez MD 30 [place] [address] Consulting Provider Endocrinology 09/19/22 Florecita Hopson MD [address] [address] Covering Provider Urogynecology 09/19/22 documented as of this encounter
--- OUTSIDE RECORDS SUMMARY | 2025-04-11 10:30 | XMS_ITS | Encounter Summary ---
Author Organization [facility] System Address [address] [place] [address] Care Team Providers Care Fish Net Stringer Name Role Phone Jennifer Landry MD Primary Care Provider [phone] Matthieu Hernandez MD Unavailable [phone] Florecita Hopson MD Unavailable [phone] Jennifer Landry MD Primary Care Provider [phone] Encounter Details Date Type Department Care Team (Late st Contact Info) Description 11/08/2022 OnBase Documentation On File [address] [place] [address] Social History Tobacco Use Types [...] 9:35 AM EDT Sexual Orientation Straight 02/13/2022 9 :35 AM EDT Travel History Travel Start Travel End [facility] and [facility] 03/23/2025 04/06/2025 COVID-19 Exposure Response Date Recorded In the last 10 days, have yo u been in contact with someone who was confirmed or suspected to have Coronavirus/COVID-19? No / Unsure 11/10/2022 10:07 AM EDT documented as of this encounter Plan of Treatment Upcoming Encounters Date Type Department Care Team (Late st Contact Info) Description 04/13/2025 8:00 AM EDT Office Visit [facility] [address] [place] [address] Lucita Méndez, OD [address] [place] [address] 04/14/2025 8:20 AM EDT [facility] 1821 [facility] [address] [place] [address] [place] [address] [place] [address] [address] [place], [place] [address] Follow up 04/22/2025 10:00 AM EDT Initial consult [facility] H[facility] 40 [facility] [address]E [place] [address] Cristal Cabrera MD 40 [place] [address] 289.89 (ICD-9-CM) - D75.89 (ICD-10-CM) - Macrocytosis without anemia 05/08/2025 3:30 PM EDT Office Visit [facility] 2nd Floor [address] [facility] 210 [place] [address] Lizbeth Fuller MD [address] [place] [address] [address] [place] [address] Marcie Macario MD 40 [place] [address] ACV visit today - schedule follow-up any provider 3-6 months for hair loss 05/11/2025 1:15 PM EDT Office Visit [facility] [address] [place] [address] Otis Bay MD [address] [place] [address] 6 month f/u per paper 06/03/2025 10:00 AM EST Nurse Only [facility] 30 [facility] 1B 1C [place] [address] [email or web address] 01/19/2025- 2wk post op 07/01/2025 2:15 PM EST Office Visit [facility] [place] [address] Estefani Whipple, OD [address] [place] [address] 07/02/2025 1:40 PM EST Post Op [facility] [address] [place] [address] Brisa Pugh, [place] 5601 [facility] [address] [place] [address] [email or web address] 01/19/2025- 6wk post op 07/29/2025 10:20 AM EST Office Visit [address] [place] [phone] Ciaran Mcgee, [address] [place] [address] [place] [address] [place] F/U 08/03/2025 1:15 PM EST Hospital Encounter [facility] 10 [place] [address] Martina Vincent MD 40 [place] [address] 08/03/2025 1:15 PM EST - 08/03/2025 4:45 PM EST Surgery [facility] 10 [place] [address] Martina Vincent MD 40 [place] [address] C3-7 laminoplast LAMINOPLASTY, CERVICAL, W/DECOMPRESSION OF SPINAL CORD, 2 OR MORE VERTEBRAL SEGMENTS; W/RECONSTRUCTION POSTERIOR BONY ELEMENTS 08/14/2025 9:20 AM EST Office Visit [facility] [address] [address] Namrata Pollock MD [address] [place] [address] Jaimee Arroyo NP [address] [address] return Scheduled Procedures Name Priority Associated Diagnoses [...] documented as of this encounter Care Teams Fish Net Stringer Relationship Specialty Start Date End Date Jennifer Landry MD [address] [place] [address] PCP - General Internal Medicine 10/10/21 07/26/23 Jennifer Landry MD [address] [place] [address] PCP - General Internal Medicine 09/20/23 Matthieu Hernandez MD 30 [place] [address] Consulting Provider Endocrinology 09/19/22 Florecita Hopson MD [address] [address] Covering Provider Urogynecology 09/19/22 documented as of this encounter
--- OUTSIDE RECORDS SUMMARY | 2025-04-11 10:30 | XMS_ITS | Encounter Summary ---
Author Organization [facility] Address [address] [place] [address] Care Team Providers Care Marine Reporter Name Role Phone Jennifer Landry MD Primary Care Provider [phone] Matthieu Hernandez MD Unavailable [phone] Florecita Hopson MD Unavailable [phone] Jennifer Landry MD Primary Care Provider [phone] Encounter Details Date Type Department Care Team (Late st Contact Info) Description 06/19/2022 OnBase Documentation On File [address] [place] [address] Social History Tobacco Use Types [...] EDT Travel History Travel Start Travel End [facility] and [facility] 03/23/2025 04/06/2025 COVID-19 Exposure Response Date Recorded In the last 10 days, have yo u been in contact with someone who was confirmed or suspected to have Coronavirus/COVID-19? No / Unsure 06/22/2022 9:45 AM EST documented as of this encounter Plan of Treatment Upcoming Encounters Date Type Department Care Team (Late st Contact Info) Description 04/13/2025 8:00 AM EDT Office Visit [facility] [address] [place] [address] Lucita Méndez, OD [address] [place] [address] 04/14/2025 8:20 AM EDT [facility] 18[address] [facility] [address] [place] [address] Kerry Zaragoza MD [address] [facility] [address] [place], [place] [address] Follow up 04/22/2025 10:00 AM EDT Initial consult [facility] Hematology 40 [facility] 1E [place] [address] Cristal Cabrrea MD 40 [place] [address] 289.89 (ICD-9-CM) - D75.89 (ICD-10-CM) - Macrocytosis without anemia 05/08/2025 3:30 PM EDT Office Visit [facility] 2nd Floor 5324 [facility] [address] [place] [address] Lizbeth Fuller MD [address] [place] [address] Marcie Macario MD 40 [place] [address] ACV visit today - schedule follow-up any provider 3-6 months for hair loss 05/11/2025 1:15 PM EDT Office Visit [facility] [address] [place] [address] Otis Bay MD 4709 [facility] [address] [place] [address] 6 month f/u per paper 06/03/2025 10:00 AM EST Nurse Only [facility] 30 [facility] 1B 1C [place] [address] [email or web address] 01/19/2025- 2wk post op 07/01/2025 2:15 PM EST Office Visit [facility] [address] [place] [address] Estefani Whipple, OD [address] [place] [address] 07/02/2025 1:40 PM EST Post Op [facility] [address] [place] [address] Brisa Pugh, [place] 5601 [facility] [address] [place] [address] [email or web address] 01/19/2025- 6wk post op 07/29/2025 10:20 AM EST Office Visit [address] [place] [phone] [place] [address] [place] [address] [place] [address] [place] F/U 08/03/2025 1:15 PM EST Hospital Encounter [facility] 10 [place] [address] Martina Vincent MD 40 [place] [address] 08/03/2025 1:15 PM EST - 08/03/2025 4:45 PM EST Surgery [facility] 10 [place] [address] Martina Vincent MD 40 [place] [address] C3-7 laminoplast LAMINOPLASTY, CERVICAL, W/DECOMPRESSION OF SPINAL CORD, 2 OR MORE VERTEBRAL SEGMENTS; W/RECONSTRUCTION POSTERIOR BONY ELEMENTS 08/14/2025 9:20 AM EST Office Visit [facility] [address] [address] Namrata Pollock MD 4220 [place] [address] Jaimee Arroyo NP [address] [address] return Scheduled Procedures Name Priority Associated Diagnoses [...] documented as of this encounter Care Teams Marine Reporter Relationship Specialty Start Date End Date Jennifer Landry MD [address] [place] [address] PCP - General Internal Medicine 10/10/21 07/26/23 Jennifer Landry MD [address] [place] [address] PCP - General Internal Medicine 09/20/23 Matthieu Hernandez MD 30 [place] [address] Consulting Provider Endocrinology 09/19/22 Florecita Hopson MD [address] [address] Covering Provider Urogynecology 09/19/22 documented as of this encounter
--- OUTSIDE RECORDS SUMMARY | 2025-04-11 10:30 | XMS_ITS | Encounter Summary ---
Author Organization [facility] Address [address] [place] [address] Care Team Providers Care Grades 6 Through 8 Teacher Name Role Phone Jennifer Landry MD Primary Care Provider [phone] Matthieu Hernandez MD Unavailable [phone] Florecita Hopson MD Unavailable Jennifer Landry MD Primary Care Provider [phone] Encounter Details Date Type Department Care Team (Late st Contact Info) Description 01/15/2023 OnBase Orders Only On File [address] [place] [address] Social History Tobacco Use Types [...] EDT Travel History Travel Start Travel End [facility] 03/23/2025 04/06/2025 COVID-19 Exposure Response Date Recorded In the last 10 days, have yo u been in contact with someone who was confirmed or suspected to have Coronavirus/COVID-19? No / Unsure 01/15/2023 4:10 AM EDT documented as of this encounter Plan of Treatment Upcoming Encounters Date Type Department Care Team (Late st Contact Info) Description 04/13/2025 8:00 AM EDT Office Visit [facility] [address] [place] [address] Lucita Méndez, OD [address] [place] [address] 04/14/2025 8:20 AM EDT [facility] 1821 [facility] [address] [place] [address] [place] [address] [place] [address] [address] [place], [place] [phone] Follow up 04/22/2025 10:00 AM EDT Initial consult [facility] 40 [facility] 1E [place] [address] Critsal Cabrera MD 40 [place] [address] 289.89 (ICD-9-CM) - D75.89 (ICD-10-CM) - Macrocytosis without anemia 05/08/2025 3:30 PM EDT Office Visit [facility] 2nd Floor [address] [place] [facility] 210 [place] [address] Lizbeth Fuller MD [address] [place] [address] [address] [place] [address] Marcie Macario MD 40 [place] [address] ACV visit today - schedule follow-up any provider 3-6 months for hair loss 05/11/2025 1:15 PM EDT Office Visit [facility] [address] [place] [address] Otis Bay MD [address] [place] [address] 6 month f/u per paper 06/03/2025 10:00 AM EST Nurse Only [facility] 30 [facility] 1B 1C [place] [address] [email or web address] 01/19/2025- 2wk post op 07/01/2025 2:15 PM EST Office Visit [facility] [address] [place] [address] Estefani Whipple, OD [address]1 [place] [address] 07/02/2025 1:40 PM EST Post Op [facility] [address] [place] [address] Brisa Pugh, [place] 5601 [facility] [address] [place] [address] [email or web address] 01/19/2025- 6wk post op 07/29/2025 10:20 AM EST Office Visit [address] [place] [phone] Ciaran Mcgee, [address] [place] [address] [place] [address] [place] F/U 08/03/2025 1:15 PM EST Hospital Encounter [facility] Periop 10 [place] [address] Martina Vincent MD 40 [place] [address] 08/03/2025 1:15 PM EST - 08/03/2025 4:45 PM EST Surgery [facility] Periop 10 [place] [address] Martina Vincent MD 40 [place] [address] C3-7 laminoplast LAMINOPLASTY, CERVICAL, W/DECOMPRESSION OF SPINAL CORD, 2 OR MORE VERTEBRAL SEGMENTS; W/RECONSTRUCTION POSTERIOR BONY ELEMENTS 08/14/2025 9:20 AM EST Office Visit [facility] [address] [address] Namrata Pollock MD 4220 [place] [address] Jaimee Arroyo NP [address] [address] return Scheduled Procedures Name Priority Associated Diagnoses Date/Ti me LAMINOPLASTY, CERVICAL, W/DECOMPRESSION OF SPINAL CORD, 2 OR MORE VERTEBRAL SEGMENTS; W/RECONSTRUCTION POSTERIOR BONY ELEMENTS Spondylosis, cervical, with myelopathy Cervical stenosis of spine 08/03/2025 1:15 PM EST documented as of this encounter Procedures Procedure Name Priority Date/Time Associated Diagnosis Comments PROCEDURE RECORD 01/15/2023 12:0 0 AM EDT documented in this encounter Results * PROCEDURE RECORD (01/15/2023 12:00 AM EDT) Narrative 01/15/2023 12:00 AM EDT Ordered by an unspecified [...] documented as of this encounter Care Teams Grades 6 Through 8 Teacher Relationship Specialty Start Date End Date Land[place], [place] [address] [place] [address] PCP - General Internal Medicine 10/10/21 07/26/23 Jennifer Landry MD [address] [place] [address] PCP - General Internal Medicine 09/20/23 Matthieu Hernandez MD 30 [place] [address] Consulting Provider Endocrinology 09/19/22 Florecita Hopson MD [address] [address] Covering Provider Urogynecology 09/19/22 documented as of this encounter
--- OUTSIDE RECORDS SUMMARY | 2025-04-11 10:30 | XMS_ITS | Encounter Summary ---
Author Organization [facility] Address [address] [place] [address] Care Team Providers Care Personal Support Worker Name Role Phone Jennifer Landry MD Primary Care Provider [phone] Matthieu Hernandez MD Unavailable [phone] Florecita Hopson MD Unavailable [phone] Jennifer Landry MD Primary Care Provider [phone] Encounter Details Date Type Department Care Team (Late st Contact Info) Description 09/16/2010 OnBase Orders Only On File [address] [place] [address] Social History Tobacco Use Types Packs/Day Years Used Date Smoking Tobacco: Never Assessed Comments Unknown Sex and Gender Information Value Date Recorded Sex Assigned at Female 02/13/2022 9:35 AM EDT Legal Sex Female 12:45 PM EST Gender Identity Female 02/13/2022 9:35 AM EDT Sexual Orientation Straight 02/13/2022 9: 35 AM EDT Travel History Travel Start Travel End [facility] 03/23/2025 04/06/2025 documented as of this encounter Plan of Treatment Upcoming Encounters Date Type Department Care Team (Late st Contact Info) Description 04/13/2025 8:00 AM EDT Office Visit [facility] [address] [place] [address] Lucita Méndez, OD [address] [place] [address] 04/14/2025 8:20 AM EDT [facility] 1821 [facility] [address] [place] [address] Kerry Zaragoza MD 1821 [facility] [address] [place] [address] Follow up 04/22/2025 10:00 AM EDT Initial consult [facility] 40 [facility] 1E [place] [address] Cristal Cabrera MD 40 [place] [address] 289.89 (ICD-9-CM) - D75.89 (ICD-10-CM) - Macrocytosis without anemia 05/08/2025 3:30 PM EDT Office Visit [facility] 2nd Floor 5324 [facility] 210 [place] [address] Lizbeth Fuller MD [address] [facility] [address] [place] [address] Marcie Macario MD 40 [place] [address] ACV visit today - schedule follow-up any provider 3-6 months for hair loss 05/11/2025 1:15 PM EDT Office Visit [facility] [address] [address] [place] [address] Otis Bay MD 4709 [facility] [address] [place] [address] 6 month f/u per paper 06/03/2025 10:00 AM EST Nurse Only [facility] 30 [facility] 1B [address]C [place] [address] [email or web address] 01/19/2025- 2wk post op 07/01/2025 2:15 PM EST Office Visit [facility] [address] [place] [address] Estefani Whipple, OD [address] [place] [address] 07/02/2025 1:40 PM EST Post Op [facility] [address] [place] [address] Brisa Pugh, [place] 5601 [facility] [address] [place] [address] [email or web address] 01/19/2025- 6wk post op 07/29/2025 10:20 AM EST Office Visit [facility] [address] [place] [address] [place] [address] Ciaran Mcgee, [address] [place] [address] [place] [address] [place] F/U 08/03/2025 1:15 PM EST Hospital Encounter [facility] Periop 10 [place] [address] Martina Vincent MD 40 [place] [address] 08/03/2025 1:15 PM EST - 08/03/2025 4:45 PM EST Surgery [facility] Per[facility] 10 [place] [address] Martina Vincent MD 40 [place] [address] C3-7 laminoplast LAMINOPLASTY, CERVICAL, W/DECOMPRESSION OF SPINAL CORD, 2 OR MORE VERTEBRAL SEGMENTS; W/RECONSTRUCTION POSTERIOR BONY ELEMENTS 08/14/2025 9:20 AM EST Office Visit [facility] [address] [address] Namrata Pollock MD [address] [place] [address] Jaimee Arroyo NP [address] [address] return Scheduled Procedures Name Priority Associated Diagnoses Date/Ti me LAMINOPLASTY, CERVICAL, W/DECOMPRESSION OF SPINAL CORD, 2 OR MORE VERTEBRAL SEGMENTS; W/RECONSTRUCTION POSTERIOR BONY ELEMENTS Spondylosis, cervical, with myelopathy Cervical stenosis of spine 08/03/2025 1:15 PM EST documented as of this encounter Procedures Procedure Name Priority Date/Time Associated Diagnosis Comments LAB RESULT EXTERNAL 09/16/2010 1 2:00 AM EST documented in this encounter Results * LAB RESULT EXTERNAL (09/16/2010 12:00 AM EST) Narrative 09/16/2010 12:00 AM EST Ordered by an unspecified [...] documented as of this encounter Care Teams Personal Support Worker Relationship Specialty Start Date End Date Jennifer Landry MD [address] [place] [address] PCP - General Internal Medicine 10/10/21 07/26/23 Jennifer Landry MD [address] [place] [address] PCP - General Internal Medicine 09/20/23 Matthieu Hernandez MD 30 [place] [address] Consulting Provider Endocrinology 09/19/22 Florecita Hopson MD [address] [address] Covering Provider Urogynecology 09/19/22 documented as of this encounter
[2025-04-11 10:34] VITALS: BP 136/72; PULSE 89; RESP 18; TEMP 38.2; O2SAT 97
[2025-04-11 10:42] LABS: EDSTREPNEGPOS1 Negative (Negative)
[2025-04-11 10:50] LABS: EDCOVIDSCREEN Negative (Negative)
[2025-04-11 10:51] LABS: EDINFLUASCREEN Negative (Negative); EDINFLUBSCREEN Negative (Negative)
== END 2025-04-11 11:18 | disposition home or self-care (01) ==
PROVIDERS: Emergency Provider Nurse Practitioner Family
DX: B34.9 Viral infection, unspecified (principal); J06.9 Acute upper respiratory infection, unspecified; Z20.822 Contact with and (suspected) exposure to COVID-19; J45.909 Unspecified asthma, uncomplicated; Z90.89 Acquired absence of other organs
CPT/HCPCS: 71046; 87081; 87426; 87804; 87880; 99203; G0463